=== PATIENT | female | born 1975 | race Caucasian/White ===

== ENCOUNTER 2019-10-16 05:49 | Inpatient (IN) | payer SELFPAY ==
[2019-10-16] VITALS (10 sets, daily range): BP systolic 91–111; BP diastolic 57–80; PULSE 71–118; RESP 12–20; TEMP 36.4–37.1; O2SAT 93–98; BMI 20.5
--- NOTE | 2019-10-16 05:57 | W.ED.GENADLT ---
HPI - General Adult General: Chief complaint: General Medical Stated complaint: BLOOD CLOTS LEFT CALF Time Seen by Provider: 10/16/19 05:54 History of Present Illness: HPI narrative: 44-year-old female with a known history of factor V Leiden deficiency. She is complaining of pain into prominent varicose veins in her left calf. She denies chest pain or shortness of breath. She has failed multiple oral anticoagulants. She also failed Lovenox and is currently on supratherapeutic doses reviewing old heme-onc notes she was on doses as high as 120 mg twice daily she is currently 100 mg twice daily. They have used anti-Xa levels to adjust her Lovenox therapy. She is also been referred to tertiary care center in [employer] [facility] for evaluation. She usually sees Dr. Stout. Patient does smell strongly of alcohol. Onset (ago): day(s) (1) Location: lower extremity (Left calf) Severity: mild Quality: burning Pain Consistency: constant Relieving factors: rest and other (Elevation) Associated symptoms: Deny chest pain, dyspnea, malaise, nausea, rash or vomiting Review of Systems Const: Denies: fever, chills, body aches, change in appetite, fatigue or malaise ENMT: Denies: throat pain, ear pain, nasal discharge or nasal congestion Card: Denies: chest pain, edema, shortness of breath on exertion or shortness of breath when lying down Resp: Denies: shortness of breath, productive cough or non-productive cough GI: Denies: abdominal pain, nausea, vomiting, vomiting blood, coffee grounds in vomit, diarrhea, constipation, bloating, blood in stool or black tarry stool : Denies: flank pain, difficulty urinating, painful urination, urinary frequency or urinary urgency Skin/Breast: Denies: rash or itching PFSH ED PFSH: Statuses (acute, chronic, etc) shown below reflect problem list status as previously entered and may not be historically accurate Social History Smoking and tobacco status: current every day smoker Physical Exam Const: COMMON NORMALS: no apparent distress GENERAL APPEARANCE: cooperative and comfortable ORIENTATION/CONSCIOUSNESS: Yes awake, Yes oriented to person, Yes oriented to place and Yes oriented to time HENMT: COMMON NORMALS: normocephalic, head/scalp atraumatic, hearing grossly normal bilaterally, external ears normal, EAC's normal, TM's normal bilaterally, nasal mucous membranes and turbinates normal, moist oral mucous membranes and oropharynx normal HEAD & SCALP: normocephalic and atraumatic NOSE: nasal mucous membranes and turbinates normal EXTERNAL EAR: Yes external ears normal EXTERNAL AUDITORY CANAL: EAC's normal TYMPANIC MEMBRANE: TM's normal bilaterally Eye: COMMON NORMALS: PERRL, EOMs intact bilaterally, conjunctivae normal and no scleral icterus CONJUNCTIVA: Yes conjunctivae normal PUPIL: Yes PERRL Neck/C-Spine: COMMON NORMALS: full ROM, no lymphadenopathy, supple and no JVD Lymph: LYMPHATIC: no lymphadenopathy noted and no lymphedema noted Resp: COMMON NORMALS: normal respiratory effort, no retractions, no use of accessory muscles and clear to auscultation bilaterally AUSCULTATION: clear to auscultation bilaterally Cardio: COMMON NORMALS: no JVD, regular rate, regular rhythm and no murmurs RATE: regular rate RHYTHM: regular rhythm GI: COMMON NORMALS: soft to palpation and no hepatosplenomegaly AUSCULTATION: Yes normoactive bowel sounds PALPATION: Yes soft, No tender, No guarding and Yes no hepatosplenomegaly Extremity: COMMON NORMALS: normal to inspection, normal capillary refill, no clubbing, cyanosis or edema and no pedal edema OTHER: Left calf tenderness with 2 prominent varicose veins that are mildly warm to the touch there in the posterior medial aspect of the calf there is no significant swelling in the left leg. Neuro: SENSORIUM/ORIENTATION: Yes oriented to person, Yes oriented to place and Yes oriented to time Skin: COMMON NORMALS: no rashes or lesions noted GENERAL SKIN EXAM: no rashes or lesions noted Course ED course: Patient was noted to be mildly hypotensive tachycardic and have slightly decreased O2 sats on arrival she denies chest pain or shortness of breath. Venous duplex lower extremities confirms a superficial thrombophlebitis and shows what appears to be an old nonocclusive DVT extending all the way through the common femoral vein. Because of her vital sign abnormalities I did go ahead and do a CTA of the chest which shows right sided pulmonary emboli that were not present in August 2019. Discussed with Dr. Stout we both agree that patient be heparinized and monitored here in the hospital we already have a heparin anti-Xa level pending which can be used to adjust her Lovenox dose to therapeutic levels. Reviewed findings with the patient. Vital Signs: Vital signs: Vital Signs Temperature 98.8 F 10/16/19 10:38 Pulse Rate 91 10/16/19 10:38 Respiratory Rate 20 H 10/16/19 10:38 Blood Pressure 93/57 10/16/19 10:38 Pulse Oximetry 96 10/16/19 10:38 [facility] - General Adult Lab Data: Labs: Lab Results 10/16/19 10/16/19 10/16/19 Range/Units 06:22 06:22 06:22 WBC 6.3 (4.0-10.0) 10^3/ uL RBC 4.20 (4.1-5.3) 10^6/u L Hgb 13.2 (11.5-15.3) g/dL Hct 38.2 (37.0-47.0) % MCV 91.0 (81-99) fL MCH 31.4 (28.0-34.0) pg MCHC 34.6 (30.0-36.0) g/dL RDW 12.4 (12.1-15.1) % Plt Count 273 (130-400) 10^3/c mm MPV 8.8 (7.4-10.4) fL Neut % (Auto) 54.8 % Lymph % (Auto) 33.8 % [place] % (Auto) 6.2 % Eos % (Auto) 4.5 % Baso % (Auto) 0.5 % Neut # (Auto) 3.5 (1.8-7.7) 10^3/u L Lymph # (Auto) 2.1 (0.8-4.8) 10^3/u L [place] # (Auto) 0.4 (0.2-0.9) 10^3/u L Eos # (Auto) 0.3 (0.0-0.8) 10^3/u L Baso # (Auto) 0.0 (0.0-0.1) 10^3/u L Nucleated RBC % (a uto) 0 % Nucleated RBCs # 0.0 /100WBC PT 12.00 (10.5-13.3) SECO NDS INR 0.86 (0.8-1.2) APTT 20.8 L (23.9-36.7) SECO NDS Sodium 133 L (136-145) mmol/L Potassium 3.4 L (3.5-5.1) mmol/L Chloride 96 L (98-107) mmol/L Carbon Dioxide 21 L (22-29) mmol/L Anion Gap 19.4 H (5-19) BUN 6 (6-20) mg/dL Creatinine 0.5 (0.5-0.9) mg/dL GFR Calculation 133.4 H (90-130) mL/min Glucose 133 H (74-109) mg/dL Calcium 9.6 (8.6-10.0) mg/Dl Magnesium 1.8 (1.7-2.3) mg/dL Total Bilirubin 0.2 (0.15-1.2) mg/dL AST 18 (0-32) U/L ALT 18 (0-33) U/L Alkaline Phosphata se 54 (35-105) IU/L Total Protein 7.6 (6.6-8.7) g/dL Albumin 4.9 (3.5-5.2) g/dL Globulin 2.7 (1.3-4.6) g/dL Ethyl Alcohol (0-10) mg/dL 10/16/19 Range/Units 06:22 WBC (4.0-10.0) 10^3/ uL RBC (4.1-5.3) 10^6/u L Hgb (11.5-15.3) g/dL Hct (37.0-47.0) % MCV (81-99) fL MCH (28.0-34.0) pg MCHC (30.0-36.0) g/dL RDW (12.1-15.1) % Plt Count (130-400) 10^3/c mm MPV (7.4-10.4) fL Neut % (Auto) % Lymph % (Auto) % [place] % (Auto) % Eos % (Auto) % Baso % (Auto) % Neut # (Auto) (1.8-7.7) 10^3/u L Lymph # (Auto) (0.8-4.8) 10^3/u L [place] # (Auto) (0.2-0.9) 10^3/u L Eos # (Auto) (0.0-0.8) 10^3/u L Baso # (Auto) (0.0-0.1) 10^3/u L Nucleated RBC % (a uto) % Nucleated RBCs # /100WBC PT (10.5-13.3) SECO NDS INR (0.8-1.2) APTT (23.9-36.7) SECO NDS Sodium (136-145) mmol/L Potassium (3.5-5.1) mmol/L Chloride (98-107) mmol/L Carbon Dioxide (22-29) mmol/L Anion Gap (5-19) BUN (6-20) mg/dL Creatinine (0.5-0.9) mg/dL GFR Calculation (90-130) mL/min Glucose (74-109) mg/dL Calcium (8.6-10.0) mg/Dl Magnesium (1.7-2.3) mg/dL Total Bilirubin (0.15-1.2) mg/dL AST (0-32) U/L ALT (0-33) U/L Alkaline Phosphata se (35-105) IU/L Total Protein (6.6-8.7) g/dL Albumin (3.5-5.2) g/dL Globulin (1.3-4.6) g/dL Ethyl Alcohol 160 H (0-10) mg/dL Imaging Data^: CT Chest: Radiologist's impression: PROCEDURE INFORMATION: Exam: CT Angiography Chest With Contrast Exam date and time: 10/16/2019 6:50 AM Age: 44 years old Clinical indication: Prior surgery; Surgery type: Gb; Patient HX: Current dvt. History of pe. ; Additional info: DVT, tachycardia TECHNIQUE: Imaging protocol: Computed tomographic angiography of the chest with intravenous contrast. 3D rendering: MIP and/or 3D reconstructed images were created by the technologist. Total DLP: 496.79 mGy-cm Radiation optimization: All CT scans at this facility use at least one of these dose optimization techniques: automated exposure control; mA and/or kV adjustment per patient size (includes targeted exams where dose is matched to clinical indication); or iterative reconstruction. Contrast material: Omnipaque 350; Contrast volume: 64 ml; Contrast route: IV; COMPARISON: CTA Chest-Pulmonary Emb [id number] 08/02/2019 9:52 PM FINDINGS: Pulmonary arteries: Nonocclusive small pulmonary emboli involving the proximal RIGHT lower lobe posterior and lateral basilar segmental arteries (series 2, image 253). Aorta: Unremarkable. No aortic aneurysm. No aortic dissection. Thyroid: The partially imaged bilateral thyroid lobes are unremarkable. Lungs: lateral basilar segment RIGHT lower lobe mild pulmonary parenchymal scarring, stable. RIGHT middle and lower lobe calcified pulmonary parenchymal granulomas. 3 mm noncalcified lingular pulmonary nodule, stable. Pleural space: Unremarkable. No pneumothorax. No pleural effusion. Heart: No evidence of elevated RIGHT cardiac pressures. Gallbladder and bile ducts: The gallbladder is surgically absent, with metallic clips in the gallbladder fossa. Lymph nodes: No enlarged lymph nodes. Bones/joints: No acute abnormality identified. No acute fracture. Soft tissues: Unremarkable. CT/CT angio chest PE protcl [id number] IMPRESSION: 1. Nonocclusive small pulmonary emboli RIGHT lower lobe posterior and lateral basilar segmental arteries. 2. Small noncalcified lingular pulmonary nodule, stable. 3. Prior cholecystectomy. Radiation Dose CTDIVOL = (mGy): DLP = 496.79 (mGy-cm) Dictated By: Lex Fabian MD Discharge Plan Discharge Patient Disposition: Admitted As Inpatient Admit Provider: Alec Kim Clinical Impression: Factor 5 Leiden mutation, heterozygous Pulmonary emboli Qualifiers: Pulmonary embolism type: multiple subsegmental (without acute cor pulmonale) Qualified Code(s): I26.94 - Multiple subsegmental pulmonary emboli without acute cor pulmonale DVT (deep venous thrombosis) Qualifiers: DVT location: lower extremity Affected thrombotic vein of extremity: femoral Chronicity: acute Laterality: right Qualified Code(s): I82.411 - Acute embolism and thrombosis of right femoral vein Condition: Stable Referrals: Rajani Garcia FNP [Family Provider] - Discharge Date/Time: 10/16/19 09:48 Coding Level of Care Code ED Meter Reader Chief for Chg Fwd Exam Problem Focused
--- NOTE | 2019-10-16 06:10 | USCV_ITS ---
Neyda Ivy Age: 44 Gender: F : 1975 Exam Date: 10/16/2019 06:35 Ordering Phys: Kuldeep No DO Technologist: Yesenia Felton [place] [facility] [place]ication: LEFT CALF PAIN HISTORY: Lower extremity pain. Patient has history of DVT. PROCEDURES: Comparison:. 06/08/19. Examined were the left greater saphenous, common femoral, femoral, profunda, popliteal, posterior tibial veins, and peroneal trunk.. FINDINGS: Non-occlusive DVT extending through the common femoral vein, popliteal vein, and peroneal trunk. SVT also noted in segements of the GSV at the area of patient pain. CONCLUSIONS Chronic DVT left CFV through the peroneal trunk and profunda are stable. Dr. Keri Leblanc DO (Electronically Signed) Final Date: 16 October 2019 08:48 S
[2019-10-16 06:28] LABS: Basophils % 0.5 %; Eosinophils # 0.3 10^3/uL (0.0-0.8); Eosinophils % 4.5 %; Hematocrit 38.2 % (37.0-47.0); Hemoglobin 13.2 g/dL (11.5-15.3); Lymphocytes # 2.1 10^3/uL (0.8-4.8); Lymphocytes % 33.8 %; Mean Corpuscular HGB Conc 34.6 g/dL (30.0-36.0); Mean Corpuscular Hemoglobin 31.4 pg (28.0-34.0); Mean Platelet Volume 8.8 fL (7.4-10.4); Monocytes # 0.4 10^3/uL (0.2-0.9); Monocytes % 6.2 %; Neutrophils # 3.5 10^3/uL (1.8-7.7); Neutrophils % 54.8 %; Nucleated Red Blood Cells % 0 %; Platelet Count 273 10^3/cmm (130-400); Red Cell Distribution Width 12.4 % (12.1-15.1); White Blood Count 6.3 10^3/uL (4.0-10.0)
[2019-10-16 06:37] LABS: INR 0.86 (0.8-1.2)
[2019-10-16 06:38] LABS: Partial Thromboplastin Time 20.8 SECONDS (23.9-36.7)
[2019-10-16 06:42] LABS: Alanine Aminotransferase 18 U/L (0-33); Albumin Level 4.9 g/dL (3.5-5.2); Alkaline Phosphatase 54 IU/L (35-105); Anion Gap 19.4 (5-19); Aspartate Amino Transferase 18 U/L (0-32); Blood Urea Nitrogen 6 mg/dL (6-20); Calcium 9.6 mg/Dl (8.6-10.0); Carbon Dioxide 21 mmol/L (22-29); Chloride 96 mmol/L (98-107); Globulin 2.7 g/dL (1.3-4.6); Glomerular Filtration Rate 133.4 mL/min (90-130); Glucose 133 mg/dL (74-109); Potassium 3.4 mmol/L (3.5-5.1); Sodium 133 mmol/L (136-145); Total Bilirubin 0.2 mg/dL (0.15-1.2); Total Protein 7.6 g/dL (6.6-8.7)
--- NOTE | 2019-10-16 06:46 | CTR_ITS ---
PROCEDURE INFORMATION: Exam: CT Angiography Chest With Contrast Exam date and time: 10/16/2019 6:50 AM Age: 44 years old Clinical indication: Prior surgery; Surgery type: Gb; Patient HX: Current dvt. History of pe. ; Additional info: DVT, tachycardia TECHNIQUE: Imaging protocol: Computed tomographic angiography of the chest with intravenous contrast. 3D rendering: MIP and/or 3D reconstructed images were created by the technologist. Total DLP: 496.79 mGy-cm Radiation optimization: All CT scans at this facility use at least one of these dose optimization techniques: automated exposure control; mA and/or kV adjustment per patient size (includes targeted exams where dose is matched to clinical indication); or iterative reconstruction. Contrast material: Omnipaque 350; Contrast volume: 64 ml; Contrast route: IV; COMPARISON: CTA Chest-Pulmonary Emb [id number] 08/02/2019 9:52 PM FINDINGS: Pulmonary arteries: Nonocclusive small pulmonary emboli involving the proximal RIGHT lower lobe posterior and lateral basilar segmental arteries (series 2, image 253). Aorta: Unremarkable. No aortic aneurysm. No aortic dissection. Thyroid: The partially imaged bilateral thyroid lobes are unremarkable. Lungs: lateral basilar segment RIGHT lower lobe mild pulmonary parenchymal scarring, stable. RIGHT middle and lower lobe calcified pulmonary parenchymal granulomas. 3 mm noncalcified lingular pulmonary nodule, stable. Pleural space: Unremarkable. No pneumothorax. No pleural effusion. Heart: No evidence of elevated RIGHT cardiac pressures. Gallbladder and bile ducts: The gallbladder is surgically absent, with metallic clips in the gallbladder fossa. Lymph nodes: No enlarged lymph nodes. Bones/joints: No acute abnormality identified. No acute fracture. Soft tissues: Unremarkable. CT/CT angio chest PE protcl [id number] IMPRESSION: 1. Nonocclusive small pulmonary emboli RIGHT lower lobe posterior and lateral basilar segmental arteries. 2. Small noncalcified lingular pulmonary nodule, stable. 3. Prior cholecystectomy. Radiation Dose CTDIVOL = (mGy): DLP = 496.79 (mGy-cm)
[2019-10-16 06:58] LABS: Alcohol Level 160 mg/dL (0-10)
[2019-10-16] MEDS: iohexol 350 mg/mL 100 mL Btl IV (07:06)
[2019-10-16] MEDS: heparin 5,000 unit/mL INJ 1 mL 5000 UNIT IV (08:05)
[2019-10-16] MEDS: heparin drip 25,000 UNIT/500 ML PREMIX 14.2 UNIT IV (08:07)
--- NOTE | 2019-10-16 08:57 | USCV_ITS ---
Neyda Ivy Age: 44 Gender: F : 1975 Exam Date: 10/16/2019 08:58 Ordering Phys: Kuldeep No DO Technologist: Vijaya Pena [place] [facility] [place]: PE KNOWN DVT BP: / HR: 83 Rhythm: Sinus Technical Quality: Adequate MEASUREMENTS (Male / Female) Normal Values 2D ECHO LV Diastolic Diameter PLAX 3.6 cm 4.2 - 5.9 / 3.9 - 5.3 cm LV Systolic Diameter PLAX 2.4 cm LV Chamber Size 3.2 cm IVS Diastolic Thickness 1.1 cm 0.6 - 1.0 / 0.6 - 0.9 cm IVS Systolic Thickness 1.4 cm LVPW Diastolic Thickness 1.0 cm 0.6 - 1.0 / 0.6 - 0.9 cm LVPW Systolic Thickness 1.5 cm RV Chamber Size 2.1 cm LVOT Diameter 2.0 cm LV Ejection Fraction 2D Teich 64.5 % LV Ejection Fraction MOD 2C 61.2 % LV Ejection Fraction 2C AL 63.9 % LA Diameter 3.0 cm LA Width 2.8 cm LA Height 2.6 cm RA Width 3.0 cm RA Height 3.5 cm Aorta at Sinotubular Diameter 2.6 cm M-MODE LV Diastolic Diameter MM 3.6 cm 4.2 - 5.9 / 3.9 - 5.3 cm LV Systolic Diameter MM 2.4 cm LV Ejection Fraction MM Teich 62.2 % IVS Diastolic Thickness MM 0.8 cm 0.6 - 1.0 / 0.6 - 0.9 cm IVS Systolic Thickness MM 1.1 cm LVPW Diastolic Thickness MM 1.3 cm 0.6 - 1.0 / 0.6 - 0.9 cm LVPW Systolic Thickness MM 1.6 cm RV Diastolic Diameter MM 1.6 cm Aortic Annulus Diameter 3.3 cm LA Ao Ratio MM 0.9 MV E Point Septal Separation 0.3 cm DOPPLER AV Peak Velocity 108.0 cm/s LVOT Peak Velocity 78.0 cm/s AV Area Cont Eq vti 2.5 cm squared AV Area Cont Eq pk 2.3 cm squared MV Area PHT 5.0 cm squared Mitral E to A Ratio 1.2 MV E' Velocity 14.0 cm/s Mitral E to MV E' Ratio 5.1 Mitral E to LV E' Lateral Ratio 5.6 Mitral E to LV E' Septal Ratio 4.8 TR Peak Velocity 128.3 cm/s TR Peak Gradient 6.6 mmHg TR Mean Velocity 94.3 cm/s TR Mean Gradient 4.0 mmHg TR Velocity Time Integral 26.7 cm TV Peak E Velocity 64.0 cm/s Right Atrial Pressure 3.0 mmHg Pulmonary Artery Systolic Pressu 9.6 mmHg PV Peak Velocity 67.0 cm/s RV Acceleration Time 0.2 s RV Ejection Time 0.4 s RV AcT/ET 0.5 FINDINGS Left Ventricle Normal left ventricular size, systolic function and wall thickness, with no regional wall motion abnormalities. Left ventricular ejection fraction is estimated at 68 %. Normal diastolic function. Right Ventricle Normal right ventricular size and systolic function. Right ventricular systolic pressure 9.6 mmHg. Right Atrium Normal right atrial size. Right atrial pressure estimated at 3 mmHg. Left Atrium Normal left atrial size. Mitral Valve Mildly thickened mitral valve. No mitral valve stenosis. Trace mitral valve regurgitation. Aortic Valve Structurally normal trileaflet aortic valve. No aortic valve stenosis. Trace to mild aortic valve regurgitation. Tricuspid Valve Structurally normal tricuspid valve. No tricuspid valve stenosis. Trace tricuspid valve regurgitation. Pulmonic Valve Pulmonic valve not well visualized. Pericardium No pericardial effusion. Aorta Normal-sized aortic root. CONCLUSIONS 1. Normal left ventricular size, systolic function and wall thickness, with no regional wall motion abnormalities. Left ventricular ejection fraction is estimated at 68 %. Normal diastolic function. 2. Normal right ventricular size and systolic function. 3. Right atrial pressure estimated at 3 mmHg. 4. Trace to mild aortic valve regurgitation. 5. No prior similar studies to compare. Maura Adair MD (Electronically Signed) Final Date: 16 October 2019 18:17 S
[2019-10-16 09:51] LABS: Magnesium 1.8 mg/dL (1.7-2.3)
[2019-10-16] MEDS: acetaminophen 325 mg Tablet 650 MG PO (10:58)
--- NOTE | 2019-10-16 14:29 | P.HP_ITS ---
Providers/Chief Complaint Admitting Physician: Alec Kim MD Chief Complaint: BLOOD CLOTS LEFT CALF History of Present Illness Neyda Ivy is a 44 year old female that presented to the emergency department with complaints of some swelling in her left calf, and tenderness. She has a long history of recurrent DVTs. She reports she is currently on Lovenox, 100 mg subcutaneous every 12 hours. For 5 months ago this was d ecreased from 120 mg every 12 hours. She is on supratherapeutic doses secondary to her recalcitrant clotting problem. She denies any shortness of breath, or chest pain. While in the ER she was noted to be tachycardic so a CTA was performed which demonstrated a new pulmonary embolism. Patient denies any fever, cough. She reports she has been compliant with Lovenox. She reports she had alcohol yesterday. ER physician was concerned that she appeared inebriated when she arrived today and alcohol level was significant. Review of Systems General: Reports: 10 or more systems reviewed and unremarkable except in HPI and below Const: Denies: fever Eyes: Denies: change in vision ENMT: Denies: throat pain Card: Reports: swelling of feet/ankles; Denies: chest pain or irregular heart rhythm Resp: Denies: shortness of breath GI: Denies: abdominal pain, nausea, vomiting blood, blood in stool or black tarry stool : Denies: difficulty urinating Musc: Denies: back pain Skin/Breast: Denies: rash Neuro: Denies: headache Psych: Denies: anxiety Endo: Denies: excessive urination Yassine/Lymph: Reports: easy bruising All/Imm: Denies: hives Medications/Allergies Home Medications Medication Instructions Recorded Confirmed Last Taken Type enoxaparin 100 mg SUBCUT BID 10/16/19 10/16/19 10/15/19 History Allergies Allergy/AdvReac Type Severity Reaction Status Date / Time apixaban [From Eliquis] Allergy ALGY-Hives Verified 10/16/19 05:57 gabapentin Allergy ALGY-Hives Verified 10/16/19 05:57 morphine Allergy ALGY-Hives Verified 10/16/19 05:57 PFSH Acute PFSH: Statuses (acute, chronic, etc) shown below reflect problem list status as previously entered and may not be historically accurate Medical History (Updated 10/16/19 @ 14:34 by Alec Kim MD) Asthma (Acute) DVT (deep venous thrombosis) (Acute) Factor 5 Leiden mutation, heterozygous (Acute) Pulmonary emboli (Acute) Tobacco dependency (Acute) Surgical History (Updated 10/16/19 @ 14:33 by Alec Kim MD) H/O neck surgery (Acute) History of back surgery (Acute) History of (Acute) History of cholecystectomy (Acute) History of tubal ligation (Acute) Family History (Updated 10/16/19 @ 14:35 by Alec Kim MD) Mother Cancer Cervical cancer Social History (Updated 10/16/19 @ 14:35 by Alec Kim MD) Smoking and tobacco status: current every day smoker Alcohol intake: current Alcohol intake frequency: 0-2 Drinks per Day Substance/Drug Use: never Female Reporductive History: Date of last menstrual period: 10/01/19 Vitals/I&O/Wt Last Vital Signs Temp 98.8 F 10/16/19 10:38 Pulse 91 10/16/19 10:38 Resp 20 H 10/16/19 10:38 BP 93/57 10/16/19 10:38 Pulse Ox 96 10/16/19 10:38 10/15/19 10/16/19 10/16/19 22:59 06:59 14:59 Intake Total 360 / 360 Balance 360 / 360 Weight last 48 hrs Weight 50.802 kg Physical Exam Narrative: EXAM NARRATIVE: General exam is no apparent distress HEENT: Pupils equally round. Oropharynx clear. Neck is supple no lymphadenopathy or thyromegaly Cardiovascular regular rate and rhythm without murmur no S3 or S4 Lungs clear no wheezing or crackles Abdomen is soft with positive bowel sounds. No obvious organomegaly deferred Extremities no cyanosis or clubbing. Left calf with some edema, superficial erythema Neuro no focal deficits Skin no rash Data : 10/16/19 06:22 10/16/19 06:22 Other data: Venous duplex demonstrated chronic DVT left common femoral vein CTA demonstrated nonocclusive small pulmonary emboli right lower lobe posterior and left basilar segmental arteries A&P Assessment and plan (1) DVT (deep venous thrombosis): Left lower extremity DVT. Probably acute on chronic. Occurred on Lovenox 100 mg twice daily. Plan will be heparin for 72 hours IV, followed by increasing Lovenox dose to 120 mg twice daily with discharge. Discussed briefly with her hand cell tuber. Status: Acute Qualifiers: Affected thrombotic vein of extremity: femoral Chronicity: acute DVT location: lower extremity Laterality: right Qualified Code(s): I82.411 - Acute embolism and thrombosis of right femoral vein Code(s): I82.409 - Acute embolism and thrombosis of unspecified deep veins of unspecified lower extremity (2) Pulmonary emboli: See plan above Status: Acute Qualifiers: Pulmonary embolism type: multiple subsegmental (without acute cor pulmonale) Qualified Code(s): I26.94 - Multiple subsegmental pulmonary emboli without acute cor pulmonale Code(s): I26.99 - Other pulmonary embolism without acute cor pulmonale (3) Factor 5 Leiden mutation, heterozygous: Status: Acute Code(s): D68.51 - Activated protein C resistance (4) Asthma: Albuterol as needed Status: Acute Code(s): J45.909 - Unspecified asthma, uncomplicated (5) Tobacco dependency: Discussed abstinence, counseling given Status: Acute Code(s): F17.200 - Nicotine dependence, unspecified, uncomplicated Additional A&P Information Mild hypokalemia, already supplemented Elevated alcohol level. Discussed this in detail with the patient. This is not ideal considering her anticoagulants. Attestations Medical Necessity Statement*: Will need greater than 2 midnight stay for evalu ation and treatment of pulmonary emboli Coding Level of Care Code Acute Acid Condenser for Chg Fwd Diagnoses DVT (deep venous thrombosis) I82.411 Affected thrombotic vein of extremity: femoral Chronicity: acute DVT location: lower extremity Laterality: right Pulmonary emboli I26.94 Pulmonary embolism type: multiple subsegmental (without acute cor pulmonale) Factor 5 Leiden mutation, heterozygous D68.51 Asthma J45.909 Tobacco dependency F17.200
[2019-10-16 15:17] LABS: Partial Thromboplastin Time 43.8 SECONDS (23.9-36.7)
[2019-10-16 20:50] LABS: Partial Thromboplastin Time 43.8 SECONDS (23.9-36.7)
[2019-10-16] MEDS: heparin 5,000 unit/mL INJ 1 mL IV (21:40)
[2019-10-17] VITALS (8 sets, daily range): BP systolic 91–110; BP diastolic 51–72; PULSE 63–80; RESP 17–19; TEMP 36.4–37.3; O2SAT 90–98; BMI 20.5
[2019-10-17 02:31] LABS: Basophils % 0.3 %; Eosinophils # 0.2 10^3/uL (0.0-0.8); Eosinophils % 4.2 %; Hematocrit 38.4 % (37.0-47.0); Hemoglobin 12.9 g/dL (11.5-15.3); Lymphocytes % 35.6 %; Mean Corpuscular HGB Conc 33.6 g/dL (30.0-36.0); Mean Corpuscular Hemoglobin 31.3 pg (28.0-34.0); Mean Corpuscular Volume 93.2 fL (81-99); Mean Platelet Volume 9.2 fL (7.4-10.4); Monocytes # 0.4 10^3/uL (0.2-0.9); Monocytes % 6.3 %; Neutrophils # 3.1 10^3/uL (1.8-7.7); Neutrophils % 53.4 %; Nucleated Red Blood Cells % 0 %; Platelet Count 264 10^3/cmm (130-400); Red Blood Count 4.12 10^6/uL (4.1-5.3); Red Cell Distribution Width 12.9 % (12.1-15.1); White Blood Count 5.7 10^3/uL (4.0-10.0)
[2019-10-17 02:51] LABS: Alanine Aminotransferase 11 U/L (0-33); Albumin Level 4.4 g/dL (3.5-5.2); Alkaline Phosphatase 42 IU/L (35-105); Anion Gap 16.9 (5-19); Aspartate Amino Transferase 14 U/L (0-32); Blood Urea Nitrogen 9 mg/dL (6-20); Calcium 9.6 mg/Dl (8.6-10.0); Carbon Dioxide 23 mmol/L (22-29); Chloride 102 mmol/L (98-107); Globulin 2.3 g/dL (1.3-4.6); Glomerular Filtration Rate 133.4 mL/min (90-130); Glucose 112 mg/dL (74-109); Potassium 3.9 mmol/L (3.5-5.1); Sodium 138 mmol/L (136-145); Total Bilirubin 0.2 mg/dL (0.15-1.2); Total Protein 6.7 g/dL (6.6-8.7)
[2019-10-17 04:37] LABS: Partial Thromboplastin Time 75.8 SECONDS (23.9-36.7)
[2019-10-17 11:10] LABS: Partial Thromboplastin Time 52.3 SECONDS (23.9-36.7)
--- NOTE | 2019-10-17 11:21 | P.PN_ITS ---
Subjective Subjective: Interval history: Neyda reports she is doing fine. She denies any chest pain, shortness of breath or any other respiratory symptoms. She reports her leg is about the same. Medications: Reviewed: Yes Vitals/I&O/Wt Last Vital Signs Temp 98.4 F 10/17/19 11:05 Pulse 69 10/17/19 11:05 Resp 17 10/17/19 11:05 BP 108/61 10/17/19 11:05 Pulse Ox 94 10/17/19 11:05 10/16/19 10/17/19 10/17/19 22:59 06:59 14:59 Intake Total 535.843 / 895.843 646.4 / 1542.243 Balance 535.843 / 895.843 646.4 / 1542.243 Weight last 48 hrs Weight 50.802 kg Weight 50.802 kg Physical Exam Narrative: EXAM NARRATIVE: General exam is no apparent distress HEENT: Pupils equally round. Oropharynx clear. Neck is supple no lymphadenopathy or thyromegaly Cardiovascular regular rate and rhythm without murmur no S3 or S4 Lungs clear no wheezing or crackles Abdomen is soft with positive bowel sounds. No obvious organomegaly deferred Extremities no cyanosis or clubbing. Left calf with some edema, superficial erythema. This is improved since her admission Neuro no focal deficits Skin no rash Data : 10/17/19 02:25 10/17/19 02:25 A&P Assessment and plan (1) DVT (deep venous thrombosis): Left lower extremity DVT. Probably acute on chronic. Occurred on Lovenox 100 mg twice daily. Plan will be heparin for 72 hours IV, followed by increasing Lovenox dose to 120 mg twice daily with discharge. Discussed briefly with her automobile engine assembler. She will likely discharge Sunday Status: Acute Qualifiers: Affected thrombotic vein of extremity: femoral Chronicity: acute DVT location: lower extremity Laterality: right Qualified Code(s): I82.411 - Acute embolism and thrombosis of right femoral vein Code(s): I82.409 - Acute embolism and thrombosis of unspecified deep veins of unspecified lower extremity (2) Pulmonary emboli: See plan above. Pulmonary embolus seen on CTA Status: Acute Qualifiers: Pulmonary embolism type: multiple subsegmental (without acute cor pulmonale) Qualified Code(s): I26.94 - Multiple subsegmental pulmonary emboli without acute cor pulmonale Code(s): I26.99 - Other pulmonary embolism without acute cor pulmonale (3) Factor 5 Leiden mutation, heterozygous: Status: Acute Code(s): D68.51 - Activated protein C resistance (4) Asthma: Albuterol as needed Status: Acute Code(s): J45.909 - Unspecified asthma, uncomplicated (5) Tobacco dependency: Discussed abstinence, counseling given Status: Acute Code(s): F17.200 - Nicotine dependence, unspecified, uncomplicated Additional A&P Information Mild hypokalemia, already supplemented Elevated alcohol level. Discussed this in detail with the patient. This is not ideal considering her anticoagulants. Attestations Medical Necessity Statement*: Needs continued hospitalization for IV heparin secondary to acute pulmonary emboli Coding Level of Care Code Acute Material Handling Technician for Renetta Burton Diagnoses DVT (deep venous thrombosis) I82.411 Affected thrombotic vein of extremity: femoral Chronicity: acute DVT location: lower extremity Laterality: right Pulmonary emboli I26.94 Pulmonary embolism type: multiple subsegmental (without acute cor pulmonale) Factor 5 Leiden mutation, heterozygous D68.51 Asthma J45.909 Tobacco dependency F17.200
[2019-10-17] MEDS: heparin drip 25,000 UNIT/500 ML PREMIX 18.3 UNIT IV (16:55)
[2019-10-17 19:12] LABS: Partial Thromboplastin Time 35.8 SECONDS (23.9-36.7)
[2019-10-17] MEDS: heparin 5,000 unit/mL INJ 1 mL IV (20:39)
[2019-10-18] VITALS (8 sets, daily range): BP systolic 91–108; BP diastolic 52–65; PULSE 57–76; RESP 16–18; TEMP 36.6–36.9; O2SAT 95–99
[2019-10-18 02:20] LABS: Basophils % 0.3 %; Eosinophils # 0.2 10^3/uL (0.0-0.8); Eosinophils % 3.6 %; Hematocrit 38.4 % (37.0-47.0); Hemoglobin 12.7 g/dL (11.5-15.3); Lymphocytes # 2.4 10^3/uL (0.8-4.8); Lymphocytes % 36.9 %; Mean Corpuscular HGB Conc 33.1 g/dL (30.0-36.0); Mean Corpuscular Hemoglobin 31.1 pg (28.0-34.0); Mean Corpuscular Volume 94.1 fL (81-99); Mean Platelet Volume 9.4 fL (7.4-10.4); Monocytes # 0.5 10^3/uL (0.2-0.9); Monocytes % 7.3 %; Neutrophils # 3.3 10^3/uL (1.8-7.7); Neutrophils % 51.7 %; Nucleated Red Blood Cells % 0 %; Platelet Count 249 10^3/cmm (130-400); Red Blood Count 4.08 10^6/uL (4.1-5.3); White Blood Count 6.4 10^3/uL (4.0-10.0)
[2019-10-18 03:13] LABS: Partial Thromboplastin Time 66.3 SECONDS (23.9-36.7)
[2019-10-18 09:26] LABS: Partial Thromboplastin Time 62.3 SECONDS (23.9-36.7)
--- NOTE | 2019-10-18 10:54 | P.PN_ITS ---
Subjective Subjective: Interval history: Neyda reports she is doing fine. She is wondering when she can go home. She denies any chest pain or shortness of breath. Leg feels better. Medications: Reviewed: Yes Vitals/I&O/Wt Last Vital Signs Temp 98 F 10/18/19 07:46 Pulse 73 10/18/19 07:46 Resp 18 10/18/19 07:46 BP 98/65 10/18/19 07:46 Pulse Ox 98 10/18/19 07:46 10/17/19 10/18/19 10/18/19 22:59 06:59 14:59 Intake Total 240 / 240 594 / 594 Output Total 300 / 300 Balance -60 / -60 594 / 594 Weight last 48 hrs Weight 52.481 kg Weight 50.802 kg Physical Exam Narrative: EXAM NARRATIVE: General exam no apparent distress Cardiovascular regular rate and rhythm without murmur Lungs clear Abdomen is soft with positive bowel sounds Extremities no cyanosis clubbing or edema. No erythema is noted. Data : 10/18/19 02:13 10/17/19 02:25 A&P Assessment and plan (1) DVT (deep venous thrombosis): Left lower extremity DVT. Probably acute on chronic. Occurred on Lovenox 100 mg twice daily. Plan will be heparin for 72 hours IV, followed by increasing Lovenox dose to 120 mg twice daily with discharge. Discussed briefly with her driver operator. She will discharge Sunday. I confirmed that she already has Lovenox 120 mg dose at home. Status: Acute Qualifiers: Affected thrombotic vein of extremity: femoral Chronicity: acute DVT location: lower extremity Laterality: right Qualified Code(s): I82.411 - Acute embolism and thrombosis of right femoral vein Code(s): I82.409 - Acute embolism and thrombosis of unspecified deep veins of unspecified lower extremity (2) Pulmonary emboli: See plan above. Pulmonary embolus seen on CTA Status: Acute Qualifiers: Pulmonary embolism type: multiple subsegmental (without acute cor pulmonale) Qualified Code(s): I26.94 - Multiple subsegmental pulmonary emboli without acute cor pulmonale Code(s): I26.99 - Other pulmonary embolism without acute cor pulmonale (3) Factor 5 Leiden mutation, heterozygous: Status: Acute Code(s): D68.51 - Activated protein C resistance (4) Asthma: Albuterol as needed Status: Acute Code(s): J45.909 - Unspecified asthma, uncomplicated (5) Tobacco dependency: Discussed abstinence, counseling given Status: Acute Code(s): F17.200 - Nicotine dependence, unspecified, uncomplicated Additional A&P Information Mild hypokalemia, already supplemented Elevated alcohol level. Discussed this in detail with the patient. This is not ideal considering her anticoagulants. Attestations Medical Necessity Statement*: Needs continued hospitalization for IV heparin secondary to pulmonary embolus Coding Level of Care Code Acute Diagnostic Cardiac Sonographer for Chg Fwd Diagnoses DVT (deep venous thrombosis) I82.411 Affected thrombotic vein of extremity: femoral Chronicity: acute DVT location: lower extremity Laterality: right Pulmonary emboli I26.94 Pulmonary embolism type: multiple subsegmental (without acute cor pulmonale) Factor 5 Leiden mutation, heterozygous D68.51 Asthma J45.909 Tobacco dependency F17.200
[2019-10-18 14:25] LABS: Partial Thromboplastin Time 55.8 SECONDS (23.9-36.7)
[2019-10-18] MEDS: heparin drip 25,000 UNIT/500 ML PREMIX 20 UNIT IV (19:45)
[2019-10-18 21:36] LABS: Partial Thromboplastin Time 48.9 SECONDS (23.9-36.7)
[2019-10-18] MEDS: heparin 5,000 unit/mL INJ 1 mL IV (22:18)
[2019-10-19] VITALS: BP 95/59; PULSE 69; RESP 18; TEMP 36.7; O2SAT 98
[2019-10-19 03:52] VITALS: BP 83/52; PULSE 77; RESP 16; TEMP 36.8; O2SAT 98
[2019-10-19 04:30] LABS: Partial Thromboplastin Time 65.2 SECONDS (23.9-36.7)
[2019-10-19 06:00] VITALS: BMI 21.0
[2019-10-19 07:33] VITALS: BP 97/63; PULSE 60; RESP 16; TEMP 36.8; O2SAT 98
--- NOTE | 2019-10-19 10:02 | PM.DCS ---
Discharge Providers Date of Admission: 10/16/19 09:56 Date of Discharge: 10/19/19 Attending Provider at Admission: Alec Kim MD Attending Provider at Discharge: Alec Kim MD Diagnoses at Discharge Discharge Diagnosis (1) DVT (deep venous thrombosis): Status: Acute Problem details: Lovenox dose increased to discharge Qualifiers: Affected thrombotic vein of extremity: femoral Chronicity: acute DVT location: lower extremity Laterality: right Qualified Code(s): I82.411 - Acute embolism and thrombosis of right femoral vein (2) Pulmonary emboli: Status: Acute Problem details: See above Qualifiers: Pulmonary embolism type: multiple subsegmental (without acute cor pulmonale) Qualified Code(s): I26.94 - Multiple subsegmental pulmonary emboli without acute cor pulmonale (3) Factor 5 Leiden mutation, heterozygous: Status: Acute Problem details: Failed lower dose of Lovenox at 100 mg twice daily. Dose increased as noted (4) Asthma: Status: Acute (5) Tobacco dependency: Status: Acute Problem details: Cessation discussed Reason for Visit Reason for Visit: Reason For Visit: BLOOD CLOTS LEFT CALF Hospital Course Hospital Course: Neyda presented to the hospital with left lower extremity erythema, edema. She was found to have a superficial thrombophlebitis, chronic left lower extremity DVT. CTA demonstrated concern for new pulmonary embolism. She did not have any chest pain, shortness of breath. She had been taking 100 mg of Lovenox twice daily. She was placed in the hospital on heparin drip, and monitored for 72 hours. She had resolution of her left lower extremity symptoms. She had no pulmonary symptoms. On discharge she was discharged on 120 mg of Lovenox twice daily. She will follow-up with her oncologist in 7 to 10 days. I discussed with her stopping smoking as well as alcohol. Physical Exam Narrative: EXAM NARRATIVE: General exam no apparent distress Cardiovascular regular in rhythm without murmur Lungs clear Abdomen is soft, positive bowel sounds Extremities no cyanosis clubbing or edema Discharge Data Data Completed and Pending: Completed Studies During Hospitalization Category Date Time Status CT angio chest PE protcl [id number] Stat Cat Scan 10/16/19 06:46 Completed CV echo complete* [id number] Urgent Ultrasound 10/16/19 08:57 [place] [id number] Stat Ultrasound 10/16/19 06:10 Completed Pending at discharge Category Date Time Status PTT [Partial Thro mboplastin Time] R outine Lab 10/19/19 10:00 Ordered Labs from last 24 hours 10/19/19 10/18/19 10/18/19 04:07 20:50 14:02 APTT 65.2 H 48.9 H 55.8 H Vitals: Last Vital Signs Temp 98.2 F 10/19/19 07:33 Pulse 60 10/19/19 07:33 Resp 16 10/19/19 07:33 BP 97/63 10/19/19 07:33 Pulse Ox 98 10/19/19 07:33 Discharge Plan Discharge Patient Disposition: Home, Self-Care Condition: Stable Prescriptions: New enoxaparin [Lovenox] 120 mg/0.8 mL syringe 120 mg SUBCUT Q12H Qty: 48 RF: 0 Discontinued enoxaparin 100 mg/mL syringe 100 mg SUBCUT BID RF: 0 Discharge Orders: Discharge Order (Routine); Ordered 10/19/19 Ordered By: Alec Kim Referrals: Rajani Garcia FNP [Family Provider] - Waldemar Stout MD [Hospitalist] - 7-10 days Discharge Diet: Advance as tolerated Discharge Activity: Resume usual activity Activity Restrictions/Additional Instructions: Follow-up with oncology 7 to 10 days. Increase in Lovenox as noted. Return for any concerns. Discharge Attestations Time Spent in Discharge Care*: greater than 30 min Quality Metrics Clinical Quality Measures During this hospital stay, did patient experience: VTE Contraindication to Overlap Therapy: Overlap therapy prescribed VTE Discharge Education: Education about anticoagulant therapy/Care Notes given Deep Vein Thrombosis/Pulmonary Embolism Present on Admission: Yes Contraindication to Pharm VTE Prophylaxis: VTE prophylaxis given Coding Level of Care Code Acute Aircraft Systems Technician for g Fwd Diagnoses DVT (deep venous thrombosis) I82.411 Affected thrombotic vein of extremity: femoral Chronicity: acute DVT location: lower extremity Laterality: right Pulmonary emboli I26.94 Pulmonary embolism type: multiple subsegmental (without acute cor pulmonale) Factor 5 Leiden mutation, heterozygous D68.51 Asthma J45.909 Tobacco dependency F17.200
[2019-10-19 11:23] VITALS: BP 97/63; PULSE 60; RESP 16; RESP 18; TEMP 36.8; O2SAT 98
[2019-10-19 12:01] LABS: Partial Thromboplastin Time 59.7 SECONDS (23.9-36.7)
== END 2019-10-19 12:53 | disposition home or self-care (01) | DRG 299 ==
LOC: ER 09:33 → MEDSURG 09:56
PROVIDERS: Family Medicine; Admitting Provider Internal Medicine; Emergency Provider Family Medicine; Family Provider Nurse Practitioner; Visit Provider Internal Medicine
DX: I82.411 Acute embolism and thrombosis of right femoral vein (principal); I26.94 Multiple subsegmental thrombotic pulmonary emboli without acute cor pulmonale; D68.51 Activated protein C resistance; I82.512 Chronic embolism and thrombosis of left femoral vein; J45.909 Unspecified asthma, uncomplicated; F17.200 Nicotine dependence, unspecified, uncomplicated; E87.6 Hypokalemia; Z79.899 Other long term (current) drug therapy; Z88.8 Allergy status to other drugs, medicaments and biological substances
CPT/HCPCS: 12345; 36415; 71275; 80053; 80307; 83735; 85025; 85610; 85730; 93306; 93971; 96374; 99281; J1644; Q9967

== ENCOUNTER 2020-01-19 22:56 | Emergency (ER) | payer SELFPAY ==
--- NOTE | 2020-01-19 23:01 | USR_ITS ---
PROCEDURE INFORMATION: Exam: US Duplex Right Lower Extremity Veins, Limited Exam date and time: 01/19/2020 11:15 PM Age: 44 years old Clinical indication: Pain; Leg, upper; Right TECHNIQUE: Imaging protocol: Real-time Duplex ultrasound of the Right Lower Extremity with 2-D alamo scale, color Doppler flow and spectral waveform analysis with image documentation. Limited exam was focused on the right lower extremity veins. COMPARISON: No relevant prior studies available. FINDINGS: Right deep veins: Normal blood flow within and/or compressibility of the right common femoral, distal deep femoral, posterior tibial and peroneal veins. Blood flow and augmentation evident in the superior aspect of the right superficial femoral vein. No compressibility of or blood flow within the midportion of the right femoral vein. Blood flow within, but incomplete compressibility of the inferior aspect of the right femoral vein. Incomplete compressibility of the right popliteal vein and decreased blood flow within it. Right superficial veins: Saphenofemoral junction and more inferior greater saphenous vein patent without thrombus. Soft tissues: Unremarkable. US/[place] [id number] IMPRESSION: Thrombus within much of the right femoral vein and the right popliteal vein, possibly chronic in nature.
--- NOTE | 2020-01-19 23:01 | XR_ITS ---
WS: [id number] CHEST XRAY TECHNIQUE: Portable chest. CLINICAL INFORMATION: cough COMPARISON: June 09, 2019 FINDINGS: Heart: Normal cardiac silhouette. Lungs: Lungs are clear. No consolidation or pleural effusion. Calcified granuloma right lower lobe. Bones: Postoperative changes lower cervical spine. XR/XR chest 1V portable [id number] IMPRESSION: No acute chest findings
--- NOTE | 2020-01-19 23:02 | CTR_ITS ---
PROCEDURE INFORMATION: Exam: CT Angiography Chest With Contrast Exam date and time: 01/19/2020 11:25 PM Age: 44 years old Clinical indication: Abnormal findings; Other: Postive dvt ultrasound; Additional info: Dyspnea/hx pes TECHNIQUE: Imaging protocol: Computed tomographic angiography of the chest with intravenous contrast. 3D rendering: MIP and/or 3D reconstructed images were created by the technologist. Total DLP: 416.24 mGy-cm Radiation optimization: All CT scans at this facility use at least one of these dose optimization techniques: automated exposure control; mA and/or kV adjustment per patient size (includes targeted exams where dose is matched to clinical indication); or iterative reconstruction. Contrast material: OMNI 350; Contrast volume: 95 ml; Contrast route: IV; COMPARISON: CT angio chest PE protcl [id number] 10/16/2019 7:20 AM FINDINGS: Pulmonary arteries: No significant change in the small branching embolus involving 2 right lower lobe subsegmental arteries. Still no central or segmental pulmonary embolus. No apparent interval subsegmental embolus considering motion artifacts in the left lower lung. Aorta: Continued atherosclerosis. Still no aortic aneurysm. Only slight enhancement of the upper thoracic aorta, but no suggestion of dissection. Other arteries: Small accessory right renal artery still present. Lungs: Continued calcified granuloma in the right middle and lower lobes and 2-3 mm pleural based densities in the right middle lobe and lingula. Still no consolidation. Pleural space: Unremarkable. No pneumothorax. No pleural effusion. Heart: Still no cardiomegaly or pericardial effusion. Gallbladder and bile ducts: Cholecystectomy again evident. No interval biliary ductal dilatation. Lymph nodes: No interval enlarged nodes. Bones/joints: Old compression fractures again evident. Continued degeneration of several discs. Screw and plate fixation device in the cervical spine still present. No acute fracture. Soft tissues: Unremarkable. CT/CT angio chest PE protcl [id number] IMPRESSION: 1. No acute pulmonary embolus. No significant change in the chronic subsegmental embolus in the right lower lobe (previously communicated to Dr. Tyler). 2. Chronic findings detailed above. Radiation Dose CTDIVOL = (mGy): DLP = 416.24 (mGy-cm)
[2020-01-19 23:03] VITALS: BP 103/73; PULSE 115; RESP 18; TEMP 36.5; O2SAT 98; BMI 20.3
--- NOTE | 2020-01-19 23:04 | ED_ITS ---
HPI - General Adult General: Chief complaint: Extremity Problem,Nontraumatic Stated complaint: r leg pain Time Seen by Provider: 01/19/20 22:58 History of Present Illness: HPI narrative: Ms. Ivy is a nice 44-year-old female who comes in complaining of her right leg. Patient states that she has a history of factor V Leiden disease and pulmonary emboli and DVTs. Patient states that she is certain again that this was is going on. She has failed Coumadin, Eliquis, Xarelto but is able to take Lovenox. Patient denies missing any doses or trauma to the area. Patient states that she has a little bit of a cough to which to her is an indication that she has pulmonary emboli. Associated symptoms: Deny chest pain, confusion, diaphoresis, dyspnea, headache(s), malaise, nausea, rash, palpitations, syncope or vomiting Review of Systems General: Reports: other (negative unless marked) Const: Denies: fever, chills, body aches, fatigue, malaise or diaphoresis Eyes: Denies: change in vision or blurry vision ENMT: Denies: throat pain, painful swallowing, hoarseness, ear pain, ear discharge, Change in hearing or nasal discharge Card: Denies: chest pain, palpitations, irregular heart rhythm, syncope, pre- syncope, shortness of breath on exertion or shortness of breath when lying down Resp: Denies: shortness of breath, productive cough, non-productive cough, wheezing, coughing up blood or chest congestion GI: Denies: abdominal pain, nausea, vomiting, vomiting blood, coffee grounds in vomit, diarrhea, constipation, cramping, blood in stool or black tarry stool : Denies: flank pain, painful urination, urinary frequency, urinary urgency, decreased urine ouput, urinary incontinence or blood in urine Musc: Reports: extremity pain; Denies: neck pain, back pain, extremity swelling, joint pain, joint swelling, joint warmth or joint stiffness Skin/Breast: Denies: rash, skin tenderness or yellow skin Neuro: Denies: headache, numbness in extremities, weakness in extremities, changes in sensation, lack of coordination, difficulty walking, dizziness, vertigo or confusion Endo: Denies: excessive thirst, tired all the time, cold intolerance, excessive sweating, flushing or hot flashes [place]/Lymph: Denies: easy bruising, easy bleeding, petechiae or enlarged lymph nodes All/Imm: Denies: hives, throat swelling, tongue swelling, facial swelling or acute wheezing PFSH ED PFSH: Medical History Asthma DVT (deep venous thrombosis) Lovenox dose increased to discharge Factor 5 Leiden mutation, heterozygous Failed lower dose of Lovenox at 100 mg twice daily. Dose increased as noted Pulmonary emboli See above Tobacco dependency Cessation discussed Surgical History H/O neck surgery History of back surgery History of History of cholecystectomy History of tubal ligation Family History Mother Cancer Cervical cancer Social History Smoking and tobacco status: current every day smoker Alcohol intake: current Alcohol intake frequency: 0-2 Drinks per Day Female Reproductive History: Date of last menstrual period: 10/01/19 Physical Exam Const: COMMON NORMALS: no apparent distress, oriented x3, no limitations, healthy appearing and well nourished EXAM LIMITATIONS: no altered mental status GENERAL APPEARANCE: cooperative, well kempt and well developed ORIENTATION/CONSCIOUSNESS: Yes awake HENMT: COMMON NORMALS: normocephalic, head/scalp atraumatic, hearing grossly normal bilaterally, external ears normal, EAC's normal, external nose normal and moist oral mucous membranes HEAD & SCALP: normal to inspection, normocephalic and atraumatic FACE & SINUS: normal facial exam and face symmetric NOSE: external nose normal and nares normal EXTERNAL EAR: Yes external ears normal EXTERNAL AUDITORY CANAL: EAC's normal MOUTH: oral and palatal mucosa normal and tongue normal Eye: COMMON NORMALS: PERRL, EOMs intact bilaterally, conjunctivae normal and no scleral icterus GENERAL EYE: normal appearance of both eyes and normal light reflex CONJUNCTIVA: Yes conjunctivae normal SCLERA: sclerae normal CORNEA: Yes corneas normal PUPIL: Yes PERRL DIRECT OPHTHALMOSCOPY: Yes normal light reflex Neck/C-Spine: COMMON NORMALS: full ROM, no lymphadenopathy, supple, no meningeal signs and no JVD GENERAL: Yes normal visual inspection and Yes trachea midline CERVICAL SPINE: Yes cervical ROM normal Chest: COMMONS NORMALS: inspection of chest normal and palpation of chest normal Resp: COMMON NORMALS: normal respiratory effort, no retractions, no use of accessory muscles and clear to auscultation bilaterally EFFORT & INSPECTION: Yes able to speak in complete sentences AUSCULTATION: clear to auscultation bilaterally Cardio: COMMON NORMALS: no JVD, regular rate, regular rhythm, S1 normal heart sound, S2 normal heart sound, no gallops, no clicks, no murmurs and no rub JUGULAR VENOUS DISTENTION: no JVD RATE: regular rate RHYTHM: regular rhythm HEART SOUNDS: S1 normal and S2 normal GI: COMMON NORMALS: soft to palpation, non-tender, no hepatosplenomegaly and no masses INSPECTION: Yes normal to inspection PALPATION: Yes soft and Yes no hepatosplenomegaly : COMMON NORMALS: Yes no CVA tenderness BLADDER/KIDNEY EXAM: Yes no CVA tenderness Back/Pelvis: COMMON NORMALS: no CVA tenderness, thoracic and lumbar spine normal to inspection, no thoracic nor lumbar tenderness and thoraco-lumbar ROM normal Extremity: COMMON NORMALS: normal to inspection, full ROM, normal capillary refill, no joint enlargement, no clubbing, cyanosis or edema and no calf tenderness Neuro: COMMON NORMALS: oriented x3, CN's II-XII intact bilaterally, moves all extremities, no focal motor deficits and no sensory deficits noted MENINGEAL SIGNS: Yes no meningeal signs Psych: COMMON NORMALS: mental status grossly normal, thought process normal, cooperative, affect normal, speech normal and activity/motor behavior normal APPEARANCE: Yes well kempt SPEECH: Yes normal speech THOUGHT PROCESS: normal thought process Skin: COMMON NORMALS: no rashes or lesions noted, skin turgor normal, no jaundice, no petechiae and no mottling GENERAL SKIN EXAM: no rashes or lesions noted and turgor normal Course Vital Signs: Vital signs: Vital Signs Temperature 97.7 F 01/19/20 23:03 Pulse Rate 92 01/20/20 00:12 Respiratory Rate 18 01/20/20 00:12 Blood Pressure 116/82 01/19/20 23:37 Pulse Oximetry 95 01/19/20 23:37 MDM - General Adult MDM Narrative: Medical decision making narrative: 0115 -patient was informed that she had a probable new blood clot in her right groin. I discussed the ultrasound findings with the radiologist on-call and she believed that there was thrombus in the right femoral vein and popliteal vein that was likely mostly chronic but cannot rule out a new acute thrombus due to some areas were noncompressible. The CTA was negative for new PE. I had a phone call out to Dr. Gallagher who had not yet as of this time responded back but per review of her previous admission in October she had to be admitted for 3 days of heparin before she was allowed to go home on increased dose of Lovenox. The patient was upset by this and stated she just wanted to go home and she would call Dr. Stout tomorrow. I informed her that based upon my review of her previous admission this would not be a safe option. 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 The patient refused to stay in the ER and allow us to go out to have someone get her electrician wiring and belongings from someone that was waiting for her in the parking lot. She insisted on going herself and as the patient had the capacity to make her own decisions I did not feel I had the standing to hold her against her will. I was suspicious that she was going to try to go out and smoke or leave and think that she would be okay to wait and talk to Dr. Stout tomorrow. I informed her that this blood clot was a risk to her life and if she did try to go out to smoke this would be leaving AGAINST MEDICAL ADVICE but I also informed her that whenever she did outside she was welcome to return. The patient refused to sign an AMA statement as she continued to ask state that she was not going out to smoke only get her belongings from her friend who was waiting for her in the parking lot. She was visualized on camera walking out to the vehicle where she was going to get her belongings but then she was seen to get in the truck and leave. The patient had been warned prior to this about the DVT and the possibility of a developing PE which could threaten her life but she did not seem to care about this information. The patient was warned. Ultimately I feel that she has likely eloped at this time. I will have nursing try to contact her and encouraged her to return to the ER immediately for her own wellbeing. Lab Data: Labs: Lab Results 01/19/20 01/19/20 01/19/20 Range/Units 23:22 23:22 23:22 WBC 6.2 (4.0-10.0) 10^3/ uL RBC 4.19 (4.1-5.3) 10^6/u L Hgb 12.9 (11.5-15.3) g/dL Hct 39.2 (37.0-47.0) % MCV 93.6 (81-99) fL MCH 30.8 (28.0-34.0) pg MCHC 32.9 (30.0-36.0) g/dL RDW 13.2 (12.1-15.1) % Plt Count 312 (130-400) 10^3/c mm MPV 9.3 (7.4-10.4) fL Neut % (Auto) 44.7 % Lymph % (Auto) 45.7 % [place] % (Auto) 6.2 % Eos % (Auto) 2.9 % Baso % (Auto) 0.3 % Neut # (Auto) 2.8 (1.8-7.7) 10^3/u L Lymph # (Auto) 2.8 (0.8-4.8) 10^3/u L [place] # (Auto) 0.4 (0.2-0.9) 10^3/u L Eos # (Auto) 0.2 (0.0-0.8) 10^3/u L Baso # (Auto) 0.0 (0.0-0.1) 10^3/u L Nucleated RBC % (a uto) 0 % Nucleated RBCs # 0.0 /100WBC PT 12.50 (10.5-13.3) SECO NDS INR 0.91 (0.8-1.2) APTT 21.6 L (23.9-36.7) SECO NDS D-Dimer 0.32 (0-0.59) ug/mIFE U Sodium 139 (136-145) mmol/L Potassium 3.3 L (3.5-5.1) mmol/L Chloride 103 (98-107) mmol/L Carbon Dioxide 22 (22-29) mmol/L Anion Gap 17.3 (5-19) BUN 6 (6-20) mg/dL Creatinine 0.7 (0.5-0.9) mg/dL GFR Calculation 90.5 (90-130) mL/min Glucose 108 (65-115) mg/dL Calculated Osmolal ity 284 L (285-295) mOsm/k g Calcium 9.0 (8.5-10.5) mg/dL Total Bilirubin 0.2 (0.15-1.2) mg/dL AST 20 (0-32) U/L ALT 16 (0-33) U/L Alkaline Phosphata se 45 (35-105) IU/L Total Protein 7.4 (6.6-8.7) g/dL Albumin 5.0 (3.5-5.2) g/dL Globulin 2.4 (1.3-4.6) g/dL EKG Data^: EKG 1: Attestation: I personally reviewed and interpreted this EKG as follows: EKG interpretation date: 01/19/20 EKG interpretation time: 23:38 Interpretation: Sinus tachycardia at 106 beats a minute, incomplete right bundle branch block, no acute ST or T wave changes. Computer generated interpretation: Venous Duplex 01/19/20 23:01 IMPRESSION: Thrombus within much of the right femoral vein and the right popliteal vein, possibly chronic in nature. ADDENDUM: 01/20/20 0035 THIS REPORT CONTAINS FINDINGS THAT MAY BE CRITICAL TO PATIENT CARE. The findings were verbally communicated via telephone conference with Johanna Tyler at 12:28 AM CDT on 01/20/2020. The findings were acknowledged and understood. Chest CTA 01/19/20 23:02 IMPRESSION: 1. No acute pulmonary embolus. No significant change in the chronic subsegmental embolus in the right lower lobe (previously communicated to Dr. Tyler). 2. Chronic findings detailed above. Radiation Dose CTDIVOL = (mGy): DLP = 416.24 (mGy-cm) Discharge Plan Discharge Patient Disposition: Left Against Medical Advice Clinical Impression: DVT (deep venous thrombosis) Qualifiers: DVT location: lower extremity Affected thrombotic vein of extremity: femoral Chronicity: unspecified Laterality: right Qualified Code(s): I82.411 - Acute embolism and thrombosis of right femoral vein Condition: Stable Prescriptions: No Action Lovenox 120 mg/0.8 mL syringe 100 mg SUBCUT Q12H RF: 0 Referrals: Rajani Garcia, [facility] REPAIRER [Family Provider] - Coding Level of Care Code ED Home Health Clinician for Chg Fwd Exam Comprehensive
[2020-01-19 23:24] VITALS: PULSE 103
[2020-01-19] MEDS: iohexol 350 mg/mL 100 mL Btl IV (23:26)
[2020-01-19 23:27] LABS: Basophils % 0.3 %; Eosinophils # 0.2 10^3/uL (0.0-0.8); Eosinophils % 2.9 %; Hematocrit 39.2 % (37.0-47.0); Hemoglobin 12.9 g/dL (11.5-15.3); Lymphocytes # 2.8 10^3/uL (0.8-4.8); Lymphocytes % 45.7 %; Mean Corpuscular HGB Conc 32.9 g/dL (30.0-36.0); Mean Corpuscular Hemoglobin 30.8 pg (28.0-34.0); Mean Corpuscular Volume 93.6 fL (81-99); Mean Platelet Volume 9.3 fL (7.4-10.4); Monocytes # 0.4 10^3/uL (0.2-0.9); Monocytes % 6.2 %; Neutrophils # 2.8 10^3/uL (1.8-7.7); Neutrophils % 44.7 %; Nucleated Red Blood Cells % 0 %; Platelet Count 312 10^3/cmm (130-400); Red Blood Count 4.19 10^6/uL (4.1-5.3); Red Cell Distribution Width 13.2 % (12.1-15.1); White Blood Count 6.2 10^3/uL (4.0-10.0)
[2020-01-19 23:37] VITALS: BP 116/82; PULSE 103; RESP 27; O2SAT 95
[2020-01-19 23:40] LABS: Alanine Aminotransferase 16 U/L (0-33); Alkaline Phosphatase 45 IU/L (35-105); Anion Gap 17.3 (5-19); Aspartate Amino Transferase 20 U/L (0-32); Blood Urea Nitrogen 6 mg/dL (6-20); Carbon Dioxide 22 mmol/L (22-29); Chloride 103 mmol/L (98-107); Globulin 2.4 g/dL (1.3-4.6); Glomerular Filtration Rate 90.5 mL/min (90-130); Glucose 108 mg/dL (65-115); Osmolality Calculated 284 mOsm/kg (285-295); Potassium 3.3 mmol/L (3.5-5.1); Sodium 139 mmol/L (136-145); Total Bilirubin 0.2 mg/dL (0.15-1.2); Total Protein 7.4 g/dL (6.6-8.7)
[2020-01-19 23:43] LABS: INR 0.91 (0.8-1.2)
[2020-01-19 23:44] LABS: Partial Thromboplastin Time 21.6 SECONDS (23.9-36.7)
[2020-01-19 23:47] LABS: D Dimer 0.32 ug/mIFEU (0-0.59)
[2020-01-19] MEDS: sodium chloride 0.9% 1,000 ML 999 ML IV (23:49)
[2020-01-20 00:12] VITALS: PULSE 92; RESP 18
[2020-01-20 00:30] VITALS: BP 102/69; PULSE 89; RESP 25; O2SAT 96
[2020-01-20 01:00] VITALS: BP 91/60; PULSE 88; RESP 21; O2SAT 97
--- NOTE | 2020-01-20 01:18 | PC.NURSE ---
Pt became agitated and dr in room with her explaining that she did not need to leave AMA, that she has a condition that could cause her to . Pt appears to be upset about wearing a mask do to her persistent cough. I explained that it was ok for her to take off mask when people are not in the room. Pt said she was going out to her friends car to get her phone sports announcer and she was suspected of going to smoke. Told pt if her friend brought her sports announcer in that staff could go get it for her, but she refused. PT was witnessed on camera getting into a truck in parking lot and truck drove of.
[2020-01-20 01:30] VITALS: BP 99/65
--- NOTE | 2020-01-20 01:48 | PC.NURSE ---
Attempted to call patient per Doctor Jayson and offer patient to come back to ER to be admitted if she changed her mind, patient did not answer and phone stated voicemail not set up.
== END 2020-01-20 01:30 | disposition left against medical advice (07) ==
PROVIDERS: Emergency Provider Emergency Medicine; Family Provider Nurse Practitioner
DX: I82.411 Acute embolism and thrombosis of right femoral vein (principal); Z53.21 Procedure and treatment not carried out due to patient leaving prior to being seen by health care provider; J45.909 Unspecified asthma, uncomplicated; D68.51 Activated protein C resistance; Z86.711 Personal history of pulmonary embolism; F17.210 Nicotine dependence, cigarettes, uncomplicated
CPT/HCPCS: 12345; 36415; 71045; 71275; 80053; 85025; 85378; 85610; 85730; 93971; 96360; 96361; 99283; 99284; J7030; Q9967

== ENCOUNTER 2020-10-06 11:25 | Emergency (ER) | payer SELFPAY ==
[2020-10-06 11:29] VITALS: BP 135/80; PULSE 105; RESP 16; TEMP 36.4; O2SAT 98; BMI 20.7
--- NOTE | 2020-10-06 11:41 | XR_ITS ---
WS: [id number] Right knee, 3 views, 10/06/2020 Clinical Data: pain/fall Comparison: None. Findings: No fractures or dislocations are seen. The joint spaces are normal. The patella is intact. The soft t issues are unremarkable. XR/XR knee RT 3V* [id number] Impression: Negative right knee.
--- NOTE | 2020-10-06 11:41 | W.ED.EXTPRO ---
HPI - Extremity Problem General: Chief complaint: Extremity Injury, Lower Stated complaint: rt knee pain post fall Time Seen by Provider: 10/06/20 11:35 History of Present Illness: HPI Narrative: The patient comes to the ER complaining of 4 days of right knee pain after falling on concrete directly on her right patella. She says she has been putting it off however every time she walks on it her knee swells up and she continues to have pain so she is worried it could be fractured. She also has factor V Leiden and takes Lovenox but is not having any issues with this today. She is able to walk on the knee well Complaint: extremity pain Location: right and knee Severity scale (1-10): 5 Quality: aching and sharp Radiation: none Relieving factors: elevation and rest Exacerbating factors: walking Associated symptoms: Reports no associated symptoms; Deny chest pain or rash Review of Systems General: Reports: 10 or more systems reviewed and unremarkable except in HPI and below Const: Denies: fatigue Eyes: Denies: change in vision, blurry vision or eye redness ENMT: Denies: throat pain, swelling of lips/tongue, ear or mastoid pain or nasal congestion Card: Denies: chest pain, palpitations, irregular heart rhythm, edema, dyspnea on exertion or orthopnea Resp: Denies: dyspnea, productive cough or non-productive cough GI: Denies: abdominal pain, diarrhea or GI cramping : Denies: flank pain, difficulty voiding, urinary frequency or urinary urgency Musc: Denies: neck pain, back pain, extremity pain, joint pain, joint redness, limited range of motion or muscle weakness Skin/Breast: Denies: rash, pruritus, erythema, skin pain or skin tenderness Neuro: Denies: headache(s), numbness in extremities, weakness in extremities, sensory changes, difficulty walking, dizziness, confusion or Slurred speech present Psych: Denies: anxiety or depression Endo: Denies: polyuria All/Imm: Denies: urticaria, throat swelling or tongue swelling [facility] ED PFSH: Medical History (Updated 10/06/20 @ 12:12 by Lauro Juárez MD) Asthma DVT (deep venous thrombosis) Lovenox dose increased to discharge Factor 5 Leiden mutation, heterozygous Failed lower dose of Lovenox at 100 mg twice daily. Dose increased as noted Pulmonary emboli See above Tobacco dependency Cessation discussed Surgical History H/O neck surgery History of back surgery History of History of cholecystectomy History of tubal ligation Family History Mother Cancer Cervical cancer Social History (Updated 10/06/20 @ 11:32 by Olayinka Ko RN) Smoking and tobacco status: current every day smoker cigarettes Packs smoked per day: 0.5 Alcohol intake: current Alcohol intake frequency: few times a month Substance/Drug Use: never Female Reproductive History: Date of last menstrual period: 10/01/19 Physical Exam Const: COMMON NORMALS: no acute distress, average body habitus, patient oriented x3, no limitations, healthy appearing, alert and well nourished GENERAL APPEARANCE: cooperative, comfortable, well kempt and well developed ORIENTATION/CONSCIOUSNESS: Yes awake, Yes oriented to person, Yes oriented to place and Yes oriented to time Neck/C-Spine: COMMON NORMALS: no meningeal signs and no JVD Chest: COMMONS NORMALS: normal inspection of the chest and normal palpation of entire chest wall Resp: COMMON NORMALS: normal respiratory effort, No retractions, No use of accessory muscles, clear to auscultation bilaterally and percussion normal EFFORT & INSPECTION: Yes able to speak in complete sentences AUSCULTATION: clear to auscultation bilaterally PERCUSSION: percussion normal Cardio: COMMON NORMALS: no JVD, regular rate, regular rhythm, S1 normal heart sound present, S2 normal heart sound present and Peripheral pulses 2+ throughout RATE: regular rate RHYTHM: regular rhythm HEART SOUNDS: S1 normal heart sound present and S2 normal heart sound present PERIPHERAL PULSES: Peripheral pulses 2+ throughout GI: COMMON NORMALS: Normal to inspection, nondistended, normoactive bowel sounds present, Soft to palpation, non-tender and no masses INSPECTION: Yes normal to inspection PALPATION: Yes Soft to palpation : COMMON NORMALS: Yes no CVA tenderness BLADDER/KIDNEY EXAM: Yes no CVA tenderness Back/Pelvis: COMMON NORMALS: no CVA tenderness, thoracic and lumbar spine normal to inspection, no thoracic nor lumbar tenderness and thoraco-lumbar ROM normal Extremity: COMMON NORMALS: normal to inspection, full ROM, capillary refill normal, no joint enlargement and no pedal edema NARRATIVE EXTREMITY EXAM: Exam normal except right knee tenderness with active and passive range of motion. There is also bony tenderness to the patella. Major ligaments appear to be intact. No significant knee swelling seen. GENERAL: Yes normal exam except as noted Neuro: COMMON NORMALS: patient oriented x3, CN's II-XII intact bilaterally, moves all extremities, no focal motor deficits, no sensory deficits noted and gait normal SENSORIUM/ORIENTATION: Yes alert, Yes oriented to person, Yes oriented to place and Yes oriented to time MENINGEAL SIGNS: Yes no meningeal signs Psych: COMMON NORMALS: mental status grossly normal, Normal thought process present, cooperative, normal affect and speech normal APPEARANCE: Yes well kempt ATTITUDE: Yes calm SPEECH: Yes normal speech THOUGHT PROCESS: Normal thought process present Skin: COMMON NORMALS: no rashes or lesions noted GENERAL SKIN EXAM: no rashes or lesions noted Course Vital Signs: Vital signs: Vital Signs Temperature 97.5 F L 10/06/20 11:29 Pulse Rate 105 H 10/06/20 11:29 Respiratory Rate 16 10/06/20 11:29 Blood Pressure 135/80 10/06/20 11:29 Pulse Oximetry 98 10/06/20 11:29 MDM - Extremity (Nontraumatic) MDM Narrative: Medical decision making narrative: X-rays were negative for fracture. Recommended getting an MRI in a week from her primary care physician if still in pain. Return to the ER with worsening symptoms. Discharge Plan Discharge Patient Disposition: Home Clinical Impression: Contusion of knee Qualifiers: Encounter type: initial encounter Laterality: right Qualified Code(s): S80.01XA - Contusion of right knee, initial encounter Condition: Stable Prescriptions: No Action prednisone 20 mg tablet 40 mg PO DAILY 5 Days Qty: 10 RF: 0 cyclobenzaprine 10 mg tablet 10 mg PO .HS PRN (Reason: muscle spasm) Qty: 7 RF: 0 Lovenox 120 mg/0.8 mL syringe 100 mg SUBCUT Q12H RF: 0 Discharge Orders: Discharge ED (Routine); Ordered 10/06/20 Ordered By: Lauro Juárez Referrals: Lauro Juárez MD [Emergency Provider] - Discharge Diet: Advance as tolerated Discharge Activity: Increase activity as tolerated Patient Instructions: Knee Pain (ED) Activity Restrictions/Additional Instructions: X-rays are normal. No fracture seen. It is likely a bruised kneecap. Please take Tylenol to help with your pain and return to the ER if symptoms worsen. Follow-up with your primary care physician in a week if it is still painful. Get an MRI of your knee at that time if you are still in pain. X-rays can only see bones it cannot see ligaments. An MRI can see the ligaments and tendons in your knees. If it continues to have pain please get an MRI from your primary care physician. Coding Level of Care Code ED Psychiatric Nursing Assistant for Renetta Burton Exam Comprehensive
[2020-10-06 12:21] VITALS: BP 107/71; PULSE 91; RESP 16; O2SAT 97
== END 2020-10-06 12:21 | disposition home or self-care (01) ==
PROVIDERS: Emergency Provider Family Medicine
DX: S80.01XA Contusion of right knee, initial encounter (principal); F17.210 Nicotine dependence, cigarettes, uncomplicated; W19.XXXA Unspecified fall, initial encounter; D68.51 Activated protein C resistance; Z79.01 Long term (current) use of anticoagulants
CPT/HCPCS: 12345; 73562; 99281; 99282

== ENCOUNTER 2021-07-28 09:15 | Outpatient (CLI) | payer SELFPAY | END 2021-07-28 09:16 | disposition home or self-care (01) | PROVIDERS: Visit Provider Internal Medicine Medical Oncology | DX: I74.8 Embolism and thrombosis of other arteries (principal); D68.51 Activated protein C resistance; M47.9 Spondylosis, unspecified; J45.20 Mild intermittent asthma, uncomplicated; J44.9 Chronic obstructive pulmonary disease, unspecified; K21.9 Gastro-esophageal reflux disease without esophagitis; F51.04 Psychophysiologic insomnia; Z79.899 Other long term (current) drug therapy | CPT/HCPCS: 99214 ==

== ENCOUNTER 2022-04-18 22:34 | Emergency (ER) | payer SELFPAY ==
[2022-04-18 23:09] VITALS: BP 137/87; PULSE 99; RESP 18; TEMP 36.4; O2SAT 98; BMI 22.4
--- NOTE | 2022-04-18 23:19 | ED_ITS ---
HPI - Wound/Laceration General: Chief Complaint: Wound/Laceration Stated Complaint: Cut right toe on rust Metal Time Seen by Provider: 04/18/22 23:19 History of Present Illness: 46-year-old female comes in today with injury to the dorsal right middle toe. Patient reports getting into a truck when she caught the little toe against a vani piece of metal. Patient was concerned due to tetanus not being up-to-date. Review of Systems Musc: Reports: extremity pain (Little toe right foot) Skin/Breast: Reports: new lesions PFSH ED PFSH: Medical History (Updated 04/18/22 @ 23:53 by NEDA Altman) Allergic rhinitis due to allergen Asthma DVT (deep venous thrombosis) Lovenox dose increased to discharge Factor 5 Leiden mutation, heterozygous Failed lower dose of Lovenox at 100 mg twice daily. Dose increased as noted Local reaction to bee sting Pulmonary emboli See above Tobacco dependency Cessation discussed Surgical History H/O neck surgery History of back surgery History of History of cholecystectomy History of tubal ligation Family History Mother Cancer Cervical cancer Social History (Updated 10/06/20 @ 11:32 by Olayinka Ko RN) Smoking and tobacco status: current every day smoker cigarettes Packs smoked per day: 0.5 Alcohol intake: current Alcohol intake frequency: few times a month Female Reproductive History: Date of last menstrual period: 10/01/19 Physical Exam Const: COMMON NORMALS: alert Neck/C-Spine: COMMON NORMALS: full ROM Resp: COMMON NORMALS: normal respiratory effort Cardio: COMMON NORMALS: regular rate RATE: regular rate Extremity: RIGHT LOWER EXTREMITY: Yes foot & digits (6 mm abrasion dorsal right little toe) Right foot and digits: Yes inspection, Yes palpation and Yes ROM Neuro: SENSORIUM/ORIENTATION: Yes alert Skin: TRAUMA: abrasion (Right little toe) Course Vital Signs: Vital signs: Vital Signs Temperature 97.6 F 04/18/22 23:09 Pulse Rate 99 04/18/22 23:09 Respiratory Rate 18 04/18/22 23:09 Blood Pressure 137/87 04/18/22 23:09 Pulse Oximetry 98 07/19/22 23:09 MDM - Wound/Laceration Medical Decision Making 46-year-old female comes in today for injury to the right little toe. On exam patient has a superficial abrasion to the right little toe. Cap refill is intact, normal range of motion. Patient does report tenderness to palpation. Differential diagnosis includes but not limited to abrasion of the toe, fracture, contusion. Patient refused x-ray. Wound was cleaned with saline and dressed with a Band-Aid. Patient was given a dose of tetanus to update immunization status. Reviewed recommendations for treatment and follow-up. Patient reported understanding agreed to plan. Discharge Plan Discharge Patient Disposition: Home Clinical Impression: Need for tetanus booster Abrasion of fifth toe Qualifiers: Encounter type: initial encounter Laterality: right Qualified Code(s): S90.414A - Abrasion, right lesser toe(s), initial encounter Condition: Stable Prescriptions: No Action doxycycline hyclate 100 mg tablet 100 mg PO BID Qty: 14 0RF diphenhydramine HCl 25 mg capsule 25 mg PO .hs PRN (Reason: allergy symptoms) Qty: 30 0RF fluticasone propionate 50 mcg/actuation spray,suspension 2 spray intranasal BID Qty: 16 1RF Rx Instructions: administer into each nostril Lovenox 120 mg/0.8 mL syringe 100 mg SUBCUT Q12H 0RF Discharge Orders: Discharge ED (Routine); Ordered 04/18/22 Ordered By: Dalton Barlow Discharge Diet: Usual diet Discharge Activity: Increase activity as tolerated Patient Instructions: Abrasion (ED) Activity Restrictions/Additional Instructions: Keep wound clean and dry. Apply bacitracin ointment for the wound until it is healed. Follow-up with primary care as needed. Return to ER for worsening concerns or new problems. Coding Level of Care Code ED [employer] Information Clerk for Renetta Burton
[2022-04-18] MEDS: tetanus-dipt-pertussis 0.5 mL SDV IM (23:50)
== END 2022-04-19 00:05 | disposition home or self-care (01) ==
PROVIDERS: Emergency Provider Nurse Practitioner Family
DX: S90.414A Abrasion, right lesser toe(s), initial encounter (principal); Z23 Encounter for immunization; F17.210 Nicotine dependence, cigarettes, uncomplicated; W26.8XXA Contact with other sharp object(s), not elsewhere classified, initial encounter
CPT/HCPCS: 90471; 90715; 99283

== ENCOUNTER 2022-11-17 22:17 | Emergency (ER) | payer SELFPAY ==
--- NOTE | 2022-11-17 22:19 | USR_ITS ---
PROCEDURE INFORMATION: Exam: US Duplex Right Lower Extremity Veins, Limited Exam date and time: 11/17/2022 10:39 PM Age: 47 years old Clinical indication: Pain; Other: Palp lump in calf; Leg, lower; Right; Additional info: Leg pain. Patient had DVT in 2019 and hasn't taken any blood thinners since they stopped the Lovenox injections in 2019. Sudden onset of painful palp lump in calf. TECHNIQUE: Imaging protocol: Real-time duplex ultrasound of the Right extremity with 2-D alamo scale, color Doppler flow and spectral waveform analysis including responses to compression and other maneuvers (when performed) with image documentation. Limited exam was focused on the right lower extremity veins. COMPARISON: No relevant prior studies available. FINDINGS: Evaluated veins include the right common femoral, proximal profunda femoral, proximal/mid/distal superficial femoral, popliteal, posterior tibial, peroneal, and proximal greater saphenous veins. Underlying the area of apparent clinical concern in the mid to distal right calf, there is occluding thrombus in a segment of what is apparently the greater saphenous vein, (a superficial vein). This segment of the vein is dilated and noncompressible, and demonstrates no blood flow. Since this area is apparently painful, please correlate clinically for possible thrombophlebitis. Focal areas of incomplete compression of the proximal superficial femoral vein, and distal superficial femoral/popliteal vein, although good blood flow is still demonstrated. The appearance suggests eccentrically located non-occluding thrombus and/or scarring. From the overall appearance, I suspect that this represents chronic rather than acute thrombus, difficult to be completely certain. Please correlate clinically. No visible clot in the other included veins. The other included veins appear normally compressible. Duplex Doppler evaluation demonstrates flow in the other evaluated veins. US/[place] [id number] IMPRESSION: 1. In the mid to distal right calf, there is occluding thrombus in a segment of what is apparently the greater saphenous vein, (a superficial vein). Since this area is apparently painful, please correlate clinically for possible thrombophlebitis. 2. Appearance suggesting eccentrically located non-occluding thrombus and/or scarring in the proximal superficial femoral vein and distal superficial femoral vein/popliteal vein. I suspect that this represents chronic rather than acute thrombus, difficult to be completely certain. See additional discussion above. 3. No definite evidence of acute right lower extremity deep venous thrombosis. 4. Other details discussed above.
[2022-11-17 22:23] VITALS: BP 138/85; PULSE 96; RESP 16; TEMP 36.7; O2SAT 98
--- NOTE | 2022-11-17 22:38 | ED_ITS ---
HPI - Extremity Problem General: Chief complaint: Extremity Problem,Nontraumatic Stated complaint: right calf blood clot? Time Seen by Provider: 11/17/22 22:34 History of Present Illness: 47-year-old female comes in today with some tenderness of a vessel to the right lower leg. Patient has a longstanding history of pulmonary embolism and DVTs. Patient reports that she had been prashanth xaparin routinely for prevention of DVTs but for the last 2 years had been without due to COVID-19. Patient started having symptoms approximately 2 days ago with worsening symptoms today. Patient reports no chest pain or difficulty breathing. Associated symptoms: Deny chest pain or fever(s) Review of Systems Const: Denies: fever(s) Card: Denies: chest pain Resp: Denies: dyspnea Musc: Reports: extremity pain Skin/Breast: Denies: new lesions PFSH ED PFSH: Medical History (Updated 11/17/22 @ 23:08 by NEDA Altman) Allergic rhinitis due to allergen Asthma DVT (deep venous thrombosis) Lovenox dose increased to discharge Factor 5 Leiden mutation, heterozygous Failed lower dose of Lovenox at 100 mg twice daily. Dose increased as noted Local reaction to bee sting Pulmonary emboli See above Tobacco dependency Cessation discussed Surgical History H/O neck surgery History of back surgery History of History of cholecystectomy History of tubal ligation Family History Mother Cancer Cervical cancer Social History (Updated 10/06/20 @ 11:32 by Olayinka Ko RN) Smoking and tobacco status: current every day smoker cigarettes Packs smoked per day: 0.5 Alcohol intake: current Alcohol intake frequency: few times a month Physical Exam Const: COMMON NORMALS: alert HENMT: COMMON NORMALS: normocephalic HEAD & SCALP: normocephalic MOUTH: Normal oral and palatal mucosa present Neck/C-Spine: COMMON NORMALS: full ROM Resp: COMMON NORMALS: normal respiratory effort and clear to auscultation bilaterally AUSCULTATION: clear to auscultation bilaterally Cardio: COMMON NORMALS: regular rate and regular rhythm RATE: regular rate RHYTHM: regular rhythm GI: COMMON NORMALS: Soft to palpation PALPATION: Yes Soft to palpation Extremity: COMMON NORMALS: full ROM RIGHT LOWER EXTREMITY: Yes lower leg (Redness and ropiness noted to a distal lateral vessel.) Neuro: SENSORIUM/ORIENTATION: Yes alert Skin: COMMON NORMALS: turgor normal GENERAL SKIN EXAM: turgor normal Course Vital Signs: Vital signs: Vital Signs Temperature 98.0 F 11/17/22 22:23 Pulse Rate 96 11/17/22 22:23 Respiratory Rate 16 11/17/22 22:23 Blood Pressure 138/85 11/17/22 22:23 Pulse Oximetry 98 11/17/22 22:23 Oxygen Delivery Me thod 11/17/22 22:23 MDM - Extremity (Nontraumatic) Medical Decision Making 47-year-old female comes in today for concerns of redness and tenderness to the left lower leg. On exam we note an area where there is a ropey vein with some erythema and tenderness. Differential diagnosis includes not limited to DVT, superficial thrombophlebitis, contusion. Ultrasound extremity noted a superficial thrombophlebitis to the area of tenderness, also in the popliteal angle a partial occlusion in the deep vein, and a partial occlusion at the femoral bifurcation. We will go ahead and start patient back on her Lovenox at 1 mg/kg twice a day with follow-up with specialist. Patient reports jurgenan alyse and agreed to plan. Lab Data 11/17/22 23:18 11/17/22: Laboratory Results WBC 7.6 10^3/uL (4.0-10.0) 11/17/22 23: RBC 4.36 10^6/uL (4.1-5.3) 11/17/22:18 Hgb 13.7 g/dL (11.5-15.3) 11/17/22 23:18 Hct 40.8 % (37.0-47.0) 11/17/22:18 MCV 93.6 fl (81-99) 11/17/22: MCH 31.4 pg (28.0-34.0) 11/17/22 23: MCHC 33.6 g/dL (30.0-36.0) 11/17/22 23:18 RDW 13.6 % (12.1-15.1) 11/17/22:18 Plt Count 290 10^3/cmm (130-400) 11/17/22 23:18 MPV 8.7 fL (7.4-10.4) 11/17/22 23:18 Neut % (Auto) 53.7 % 11/17/22 23:18 Lymph % (Auto) 34.9 % 11/17/22 23:18 [place] % (Auto) 6.4 % 11/17/22 23:18 Eos % (Auto) 4.2 % 11/17/22 23:18 Baso % (Auto) 0.7 % 11/17/22 23:18 Neut # (Auto) 4.09 10^3/uL (1.8-7.7) 11/17/22 23:18 Lymph # (Auto) 2.7 10^3/uL (0.8-4.8) 11/17/22 23:18 [place] # (Auto) 0.5 10^3/uL (0.2-0.9) 11/17/22 23:18 Eos # (Auto) 0.3 10^3/uL (0.0-0.8) 11/17/22 23:18 Baso # (Auto) 0.1 10^3/uL (0.0-0.1) 11/17/22 23:18 Nucleated RBC % (auto) 0 % 11/17/22 23:18 Nucleated RBCs # 0.0 /100WBC 11/17/22 23:18 PT 12.10 SECONDS (12.1-14.9) 11/17/22 23:18 INR 0.87 (0.8-1.2) 11/17/22 23:18 APTT 21.5 SECONDS (23.9-36.7) L 11/17/22 23:18 Potassium 3.8 mmol/L (3.5-5.1) 11/17/22 23:18 Carbon Dioxide 24 mmol/L (22-29) 11/17/22 23:18 Anion Gap 17.8 (5-19) 11/17/22 23:18 Creatinine 0.5 mg/dL (0.5-0.9) 11/17/22 23:18 Glucose 90 mg/dL (65-115) 11/17/22 23:18 Calcium 9.7 mg/dL (8.5-10.5) 11/17/22 23:18 Total Bilirubin 0.2 mg/dL (0.15-1.2) 11/17/22 23:18 AST 29 U/L (0-32) 11/17/22 23:18 ALT 25 U/L (0-33) 11/17/22 23:18 Alkaline Phosphatase 58 U/L (35-105) 11/17/22 23:18 Total Protein 8.2 g/dL (6.6-8.7) 11/17/22 23:18 Globulin 2.8 g/dL (1.3-4.6) 11/17/22 23:18 Discharge Plan Discharge Patient Disposition: Home Clinical Impression: DVT (deep venous thrombosis) Qualifiers: DVT location: lower extremity Affected thrombotic vein of extremity: popliteal Chronicity: unspecified Laterality: right Qualified Code(s): I82.431 - Acute embolism and thrombosis of right popliteal vein Condition: Stable Prescriptions: New enoxaparin 60 mg/0.6 mL syringe 60 mg SUBCUT Q12H Qty: 12 1RF hydrocodone-acetaminophen 5-325 mg tablet 1 tab PO Q8H PRN (Reason: pain (scale score 7-10)) Qty: 6 0RF No Action doxycycline hyclate 100 mg tablet 100 mg PO BID Qty: 14 0RF diphenhydramine HCl 25 mg capsule 25 mg PO .hs PRN (Reason: allergy symptoms) Qty: 30 0RF fluticasone propionate 50 mcg/actuation spray,suspension 2 spray intranasal BID Qty: 16 1RF Rx Instructions: administer into each nostril Lovenox 120 mg/0.8 mL syringe 100 mg SUBCUT Q12H Discharge Orders: Discharge ED (Routine); Ordered 11/17/22 Ordered By: Dalton Barlow Referrals: Waldemar Stout MD [Primary Care Provider] - Discharge Diet: Usual diet Discharge Activity: Increase activity as tolerated Patient Instructions: Deep Vein Thrombosis (ED) Activity Restrictions/Additional Instructions: Follow-up with primary care in 5 days for recheck, and adjustment to medications. Return to the emergency room for worsening symptoms such as severe chest pain, shortness of breath, or increasing swelling and redness to the extremity. Coding Level of Care Code ED Process Supervisor for Renetta Burton
[2022-11-17 23:25] LABS: Basophils # 0.1 10^3/uL (0.0-0.1); Basophils % 0.7 %; Eosinophils # 0.3 10^3/uL (0.0-0.8); Eosinophils % 4.2 %; Hematocrit 40.8 % (37.0-47.0); Hemoglobin 13.7 g/dL (11.5-15.3); Lymphocytes # 2.7 10^3/uL (0.8-4.8); Lymphocytes % 34.9 %; Mean Corpuscular HGB Conc 33.6 g/dL (30.0-36.0); Mean Corpuscular Hemoglobin 31.4 pg (28.0-34.0); Mean Corpuscular Volume 93.6 fl (81-99); Mean Platelet Volume 8.7 fL (7.4-10.4); Monocytes # 0.5 10^3/uL (0.2-0.9); Monocytes % 6.4 %; Neutrophils # 4.09 10^3/uL (1.8-7.7); Neutrophils % 53.7 %; Nucleated Red Blood Cells % 0 %; Platelet Count 290 10^3/cmm (130-400); Red Blood Count 4.36 10^6/uL (4.1-5.3); Red Cell Distribution Width 13.6 % (12.1-15.1); White Blood Count 7.6 10^3/uL (4.0-10.0)
[2022-11-17 23:36] LABS: INR 0.87 (0.8-1.2)
[2022-11-17 23:37] LABS: Partial Thromboplastin Time 21.5 SECONDS (23.9-36.7)
[2022-11-17 23:42] LABS: Alanine Aminotransferase 25 U/L (0-33); Albumin Level 5.4 g/dL (3.5-5.2); Alkaline Phosphatase 58 U/L (35-105); Anion Gap 17.8 (5-19); Aspartate Amino Transferase 29 U/L (0-32); Blood Urea Nitrogen 4 mg/dL (6-20); Calcium 9.7 mg/dL (8.5-10.5); Carbon Dioxide 24 mmol/L (22-29); Chloride 94 mmol/L (98-107); Globulin 2.8 g/dL (1.3-4.6); Glomerular Filtration Rate 131.7 mL/min (90-130); Glucose 90 mg/dL (65-115); Osmolality Calculated 270 mOsm/kg (285-295); Potassium 3.8 mmol/L (3.5-5.1); Sodium 132 mmol/L (136-145); Total Bilirubin 0.2 mg/dL (0.15-1.2); Total Protein 8.2 g/dL (6.6-8.7)
[2022-11-17] MEDS: enoxaparin 60 mg/0.6 mL Syringe SUBCUT (23:45)
[2022-11-17] MEDS: HYDROcodone-acetaminophen 5-325 mg Tablet 1 TAB PO (23:45)
[2022-11-17 23:51] VITALS: BP 97/62; PULSE 103; RESP 14; O2SAT 97
== END 2022-11-17 23:58 | disposition home or self-care (01) ==
PROVIDERS: Emergency Provider Nurse Practitioner Family; PCP Internal Medicine Medical Oncology
DX: I82.431 Acute embolism and thrombosis of right popliteal vein (principal); F17.210 Nicotine dependence, cigarettes, uncomplicated; D68.51 Activated protein C resistance
CPT/HCPCS: 80053; 85025; 85610; 85730; 93971; 96372; 99284; J1650

== ENCOUNTER 2022-11-23 23:15 | Emergency (ER) | payer SELFPAY ==
[2022-11-23 23:19] VITALS: BP 150/83; PULSE 101; RESP 16; TEMP 36.6; O2SAT 99; BMI 21.9
[2022-11-23] MEDS: enoxaparin 60 mg/0.6 mL Syringe SUBCUT (23:46)
--- NOTE | 2022-11-23 23:53 | ED_ITS ---
HPI - Extremity Problem General: Chief complaint: Extremity Injury, Lower Stated complaint: right leg pain Time Seen by Provider: 11/23/22 23:29 History of Present Illness: 47-year-old female comes in today with complaints of redness and swelling to the right lower extremity. Patient was diagnosed on the with a partial occlusion DVT of the right lower extremity along with a superficial thrombophlebitis. Patient was prescribed Lovenox due to her allergies to other medications. Patient was to start 60 mg twice a day and then follow-up with Dr. Stout. Patient appears nontoxic. Patient appears in mild pain due to her leg. Associated symptoms: Deny chest pain or fever(s) Review of Systems Const: Denies: fever(s) Card: Denies: chest pain Resp: Denies: dyspnea Musc: Reports: extremity pain and extremity swelling [facility] ED PFSH: Medical History (Updated 11/23/22 @ 23:46 by NEDA Altman) Allergic rhinitis due to allergen Asthma DVT (deep venous thrombosis) Lovenox dose increased to discharge Factor 5 Leiden mutation, heterozygous Failed lower dose of Lovenox at 100 mg twice daily. Dose increased as noted Local reaction to bee sting Pulmonary emboli See above Tobacco dependency Cessation discussed Surgical History H/O neck surgery History of back surgery History of History of cholecystectomy History of tubal ligation Family History Mother Cancer Cervical cancer Social History (Updated 10/06/20 @ 11:32 by Olayinka Ko RN) Smoking and tobacco status: current every day smoker cigarettes Packs smoked per day: 0.5 Alcohol intake: current Alcohol intake frequency: few times a month Female Reproductive History: Date of last menstrual period: 11/23/22 Physical Exam Const: COMMON NORMALS: alert HENMT: COMMON NORMALS: normocephalic HEAD & SCALP: normocephalic MOUTH: Normal oral and palatal mucosa present Neck/C-Spine: COMMON NORMALS: full ROM Resp: COMMON NORMALS: normal respiratory effort and clear to auscultation bilaterally AUSCULTATION: clear to auscultation bilaterally Cardio: COMMON NORMALS: regular rate, regular rhythm, S1 normal heart sound present and S2 normal heart sound present RATE: regular rate RHYTHM: regular rhythm HEART SOUNDS: S1 normal heart sound present and S2 normal heart sound present Extremity: RIGHT LOWER EXTREMITY: Yes lower leg (Mild redness and tenderness. Good pulses distally) Right lower leg: Yes inspection, Yes palpation and Yes neurovascular exam Neuro: SENSORIUM/ORIENTATION: Yes alert Skin: COMMON NORMALS: turgor normal GENERAL SKIN EXAM: turgor normal Course Vital Signs: Vital signs: Vital Signs Temperature 97.9 F 11/23/22 23:19 Pulse Rate 101 H 11/23/22 23:19 Respiratory Rate 16 11/23/22 23:19 Blood Pressure 150/83 11/23/22 23:19 Pulse Oximetry 99 11/23/22 23:19 Oxygen Delivery Me thod 11/23/22 23:19 MDM - Extremity (Nontraumatic) Medical Decision Making 47-year-old female comes in today with a known history of a DVT to her right lower leg. Patient came back today due to inability to get her Lovenox filled. Prescription was written on the . Patient states the cost $700 she cannot afford it. Review of the record noted that patient had a superficial phlebitis to the right lower extremity along with some partial nonocclusive DVTs to the p opliteal area of the leg. Patient denies any chest pain or shortness of breath at this time. Differential diagnosis is DVT, superficial phlebitis, inability to pay for medications. Patient was written a new prescription and recommended to take it to the [facility] pharmacy to have the prescription filled and placed on her ER bill or to discuss 340 B options. Patient was given a dose of Lovenox in the ER tonight. No signs of serious illness was noted at this time. Recommend follow-up with Dr. Stout at the soonest available appointment, case management was requested to assist with this appointment. Discharge Plan Discharge Patient Disposition: Home Clinical Impression: DVT (deep venous thrombosis) Qualifiers: DVT location: lower extremity Chronicity: chronic Laterality: right Condition: Stable Prescriptions: Continued enoxaparin 60 mg/0.6 mL syringe 60 mg SUBCUT Q12H Qty: 12 1RF No Action doxycycline hyclate 100 mg tablet 100 mg PO BID Qty: 14 0RF diphenhydramine HCl 25 mg capsule 25 mg PO .hs PRN (Reason: allergy symptoms) Qty: 30 0RF fluticasone propionate 50 mcg/actuation spray,suspension 2 spray intranasal BID Qty: 16 1RF Rx Instructions: administer into each nostril Lovenox 120 mg/0.8 mL syringe 100 mg SUBCUT Q12H hydrocodone-acetaminophen 5-325 mg tablet 1 tab PO Q8H PRN (Reason: pain (scale score 7-10)) Qty: 6 0RF Discharge Orders: Discharge ED (Routine); Ordered 11/23/22 Ordered By: Dalton Barlow Referrals: Waldemar Stout MD [Primary Care Provider] - Discharge Diet: Usual diet Discharge Activity: Increase activity as tolerated Patient Instructions: Deep Vein Thrombosis (ED) Activity Restrictions/Additional Instructions: Take the prescription to the [facility] pharmacy tomorrow and they can apply the prescription medication to your [facility] ER bill or may have other options such as 340 B plans which are government supported. Case management should contact you regarding your follow-up appointment with Dr. Nadya crisostomo. Coding Level of Care Code ED [employer] for Renetta Burton
[2022-11-23 23:58] VITALS: PULSE 90; RESP 16
--- NOTE | 2022-11-24 11:59 | DCPLANNER ---
Addendum entered by Yaneth Medrano 01/09/23 07:56: Patient had a follow up appointment with oncology - patient did attend appointment Addendum entered by Yaneth Medrano 11/28/22 14:35: Patient has a follow up appointment scheduled for , January 04, 2023 at 3:[address] Stout. Clinic will call patient with appointment information. Original Note: discovery manager had message to schedule a follow up appointment for patient with Dr. Stout. discovery manager called the office of , spoke with Iliana, gave clinic patients information. Patients information will be printed and reviewed. clinic will call patient with appointment information.
== END 2022-11-23 23:53 | disposition home or self-care (01) ==
PROVIDERS: Emergency Provider Nurse Practitioner Family; PCP Internal Medicine Medical Oncology
DX: I82.5Z1 Chronic embolism and thrombosis of unspecified deep veins of right distal lower extremity (principal); F17.210 Nicotine dependence, cigarettes, uncomplicated; Z86.718 Personal history of other venous thrombosis and embolism
CPT/HCPCS: 96372; 99284; J1650

== ENCOUNTER 2022-11-30 23:29 | Emergency (ER) | payer SELFPAY ==
[2022-11-30 23:32] VITALS: BP 135/81; PULSE 89; RESP 20; TEMP 36.8; O2SAT 99; BMI 21.2
[2022-11-30 23:39] VITALS: BP 135/81; PULSE 88; RESP 16; O2SAT 98
--- NOTE | 2022-12-01 00:17 | ED_ITS ---
HPI - Extremity Problem General: Chief complaint: Extremity Injury, Lower Stated complaint: right leg pain Time Seen by Provider: 11/30/22 23:36 History of Present Illness: Patient is in today for concerns of a blood clot in her leg. Initially, patient states that she thinks that she has a blood clot in her leg and she has a history of many blood clots in the past due to factor V Leiden. She also reports a history of a pulmonary embolism. Patient is a poor historian and after extensive questioning this provider understood the patient to be staying that she was diagnosed 2 weeks ago with blood clots in her leg and she is concerned that they are moving. She is in for an ultrasound today. further questioning revealed that the patient received an injection of Lovenox the day she was diagnosed and then was unable to get the medication filled due to financial difficulties. She has been back to ER once since her initial diagnosis and received another injection of Lovenox but has still been unable to get the medication filled. The patient reveals that she has not been on any anticoagulant medication since 2019 when COVID hit. The patient denies chest pain, shortness of breath, pain anywhere other than her right lower medial leg. She states that today she came in because she felt like the leg was more swollen. The gentleman at bedside with her states that he thinks her left leg looks more swollen than her right leg. Associated symptoms: Deny chest pain or fever(s) Review of Systems Const: Denies: fever(s), chills or body aches Card: Denies: chest pain, palpitations or irregular heart rhythm Resp: Denies: dyspnea, productive cough or non-productive cough Musc: Reports: extremity pain [facility] ED PFSH: Medical History Allergic rhinitis due to allergen Asthma DVT (deep venous thrombosis) Lovenox dose increased to discharge Factor 5 Leiden mutation, heterozygous Failed lower dose of Lovenox at 100 mg twice daily. Dose increased as noted Local reaction to bee sting Pulmonary emboli See above Tobacco dependency Cessation discussed Surgical History H/O neck surgery History of back surgery History of History of cholecystectomy History of tubal ligation Family History Mother Cancer Cervical cancer Social History Smoking and tobacco status: current every day smoker cigarettes Packs smoked per day: 0.5 Alcohol intake: current Alcohol intake frequency: few times a month Physical Exam Const: COMMON NORMALS: no acute distress, patient oriented x3 and alert OTHER: Patient is initially very polite and cooperative; however, she became very angered at the thought of not having another ultrasound. The patient was yelling at this provider at the bedside. She does not want the Lovenox, but rather just wants the ultrasound to see where the clots are. She wants a full b carole scan just to make sure they have not traveled beyond her leg Neck/C-Spine: COMMON NORMALS: no JVD Resp: COMMON NORMALS: normal respiratory effort, No use of accessory muscles and clear to auscultation bilaterally AUSCULTATION: clear to auscultation bi laterally Cardio: COMMON NORMALS: no JVD, regular rate, regular rhythm, S1 normal heart sound present, S2 normal heart sound present and No murmurs present (Cardio) RATE: regular rate RHYTHM: regular rhythm HEART SOUNDS: S1 normal heart sound present and S2 normal heart sound present Extremity: NARRATIVE EXTREMITY EXAM: There is mild erythema to the right lower medial calf. The patient is tender to palpation in this area. The swelling is minimal. Actually, the right mid calf measures 13 cm and the left mid calf measures 14 cm. The left calf is not erythematous or tender. Pedal and posterior tibialis pulses are palpable and strong. CSM to the distal foot is within normal limits. Patient does have positive Homans' sign to the right lower extremity. Neuro: COMMON NORMALS: patient oriented x3 SENSORIUM/ORIENTATION: Yes alert Course Vital Signs: Vital signs: Vital Signs Temperature 98.2 F 11/30/22 23:32 Pulse Rate 88 11/30/22 23:39 Respiratory Rate 16 11/30/22 23:39 Blood Pressure 135/81 11/30/22 23:39 Pulse Oximetry 98 11/30/22 23:39 Oxygen Delivery Me thod 11/30/22 23:32 MDM - Extremity (Nontraumatic) Medical Decision Making This is a 47-year-old female with a history of factor V Leiden and numerous deep vein thrombosis and pulmonary embolism in the past. Patient has taken herself off of anticoagulant medication since 2019 when JOE hit. On 17 November she was diagnosed with partially occlusive deep vein thrombosis in her right lower extremity at the femoral bifurcation and the popliteal. She also had a superficial thrombosis of the right lower extremity. She was dosed with Lovenox at that time and sent a prescription. She did not fill the prescription due to financial reasons. She came back on November 23 and at that time she was given another dose of Lovenox, resources for the 403B pharmacy plan here at [facility] and a referral to case management to help facilitate getting her medication and getting her into see Dr. Stout. She reports that none of those avenues worked and she still has not had the medication. She is labile affect oscillates between apologizing for being a bitch to this provider and then yelling at this provider and telling her that she demands an ultrasound of her lower extremity. I discussed this case, at length, with Dr. Davis. He is aware of this patient and agrees that the patient does not need repeat venous duplex tonight. He agrees that the patient needs anticoagulant medication to treat the known DVTs that she has. The patient is showing no symptoms of pulmonary embolism at this time and has no pain other than her right lower leg. The patient's vital signs are stable and she is in no acute distress. I explained the rationale to the patient and she does not agree; however, she then becomes apologetic and is cooperative with plan of care. A referral to case management is put in for urgent to help patient with medication and referral to Dr. Stout for continued monitoring and management. Patient is advised to return to the emergency department for new or worsening symptoms including, but not limited to, development of chest pain, shortness of breath, fever, coughing up blood, pain in her chest or other areas of the body. Patient verbalizes understanding and is discharged home in stable condition. The gentleman at the bedside is very agreeable with plan of care and is trying to redirect patient and remind her that ultimately she needs the treatment rather than just numerous repeat tests. Discharge Plan Discharge Patient Disposition: Home Clinical Impression: Factor 5 Leiden mutation, heterozygous, DVT (deep venous thrombosis) Condition: Stable Prescriptions: New Lovenox 60 mg/0.6 mL syringe 60 mg SUBCUT Q12H Qty: 6 0RF No Action doxycycline hyclate 100 mg tablet 100 mg PO BID Qty: 14 0RF diphenhydramine HCl 25 mg capsule 25 mg PO .hs PRN (Reason: allergy symptoms) Qty: 30 0RF fluticasone propionate 50 mcg/actuation spray,suspension 2 spray intranasal BID Qty: 16 1RF Rx Instructions: administer into each nostril Lovenox 120 mg/0.8 mL syringe 100 mg SUBCUT Q12H enoxaparin 60 mg/0.6 mL syringe 60 mg SUBCUT Q12H Qty: 12 1RF hydrocodone-acetaminophen 5-325 mg tablet 1 tab PO Q8H PRN (Reason: pain (scale score 7-10)) Qty: 6 0RF Discharge Orders: Discharge ED (Routine); Ordered 12/01/22 Ordered By: Mickie Slater Referrals: Waldemar Stout MD [Primary Care Provider] - Discharge Diet: Usual diet Discharge Activity: Increase activity as tolerated Patient Instructions: Deep Vein Thrombosis (ED) Activity Restrictions/Additional Instructions: You were given a dose of Lovenox tonight in the ER. You have a prescription for Lovenox that I would like you to take to the [facility] pharmacy tomorrow morning and discuss options for obtaining the medication at the lowest cost possible. Case management is going to help and try and facilitate an appointment with Dr. Stout. If you have not heard from Dr. Stout by Sunday I would like you to call his office and attempt to make an appointment. The medication is essential to treating your blood clots. I recommend wearing compression socks/hose on your legs during the daytime. Elevate your legs up above the level of your heart to help with swelling and blood return when you are sitting down. Make s ure that you are staying active and not sitting stationary too long at a time. Return to the emergency department for any new or worsening symptoms. Coding Level of Care Code ED Stubber for Renetta Burton
[2022-12-01] MEDS: enoxaparin 60 mg/0.6 mL Syringe SUBCUT (00:21)
[2022-12-01 00:46] VITALS: BP 102/70; PULSE 96; RESP 16; O2SAT 97
--- NOTE | 2022-12-06 10:25 | DCPLANNER ---
Addendum entered by Yaneth Medrano 12/07/22 09:46: Iliana called renal case manager back stating that patient had an appointment scheduled with Dr. Stout and did not attend appointment. wellness spa manager called patient at [phone], to speak with patient about getting established with a primary care physician. wellness spa manager unable to speak with patient at this time, a voicemail was left for patient to return casework specialist call. Original Note: wellness spa manager had message to help patient with medication coverage and a follow up appointment with Dr. Stout. wellness spa manager [facility]. A voicemail was left for Iliana to return casework specialist phone call.
== END 2022-12-01 00:48 | disposition home or self-care (01) ==
PROVIDERS: Emergency Provider Nurse Practitioner Family; PCP Internal Medicine Medical Oncology
DX: I82.401 Acute embolism and thrombosis of unspecified deep veins of right lower extremity (principal); D68.51 Activated protein C resistance; F17.210 Nicotine dependence, cigarettes, uncomplicated
CPT/HCPCS: 96372; 99284; J1650

== ENCOUNTER 2023-03-27 14:02 | Oncology outpatient (recurring) (ONCR) | payer SELFPAY | END 2023-03-30 23:59 | disposition home or self-care (01) | PROVIDERS: PCP Internal Medicine Medical Oncology; Visit Provider Internal Medicine Medical Oncology | DX: D68.51 Activated protein C resistance (principal); Z79.01 Long term (current) use of anticoagulants ==

== ENCOUNTER → 2023-04-12 15:15 | Outpatient (BNVA) | payer SELFPAY | PROVIDERS: PCP Internal Medicine Medical Oncology; Referring Provider Internal Medicine Medical Oncology; Visit Provider Orthopaedic Surgery | DX: M54.9 Dorsalgia, unspecified (principal) | CPT/HCPCS: 72110 ==

== ENCOUNTER → 2023-05-09 11:08 | Outpatient (BNVA) | payer SELFPAY | PROVIDERS: PCP Family Medicine; Visit Provider Family Medicine | DX: I82.409 Acute embolism and thrombosis of unspecified deep veins of unspecified lower extremity (principal) | CPT/HCPCS: 80053; 80061; 84439; 84443 ==

== ENCOUNTER 2023-07-01 21:25 | Emergency (ER) | payer MEDICAID, SELFPAY ==
[2023-07-01 21:29] VITALS: BP 149/102; PULSE 110; RESP 17; TEMP 36.6; O2SAT 99; BMI 22.1
--- NOTE | 2023-07-01 21:34 | W.ED.EXTPRO ---
HPI - Extremity Problem General: Chief complaint: Extremity Problem,Nontraumatic Stated complaint: possible blood clot in left leg Time Seen by Provider: 07/01/23 21:31 History of Present Illness: 47-year-old female comes in today with complaints of discomfort to bilateral feet. Patient also reports some soreness to her left calf. Patient has a history of recurrent DVTs and factor V gene mutation. Patient does admit that she has been off her Lovenox for a dental procedure over the last week. Patient does deny any shortness of breath or chest pain. No significant redness or swelling is noted to the left lower leg. Homans' sign is negative. Patient reports some decreased sensation to bilateral toes. This is chronic for patient but has been worse today. Male significant other states that she had were moving furniture yesterday. Patient does have known intervertebral disc degeneration especially in the L5-S1 and L4 S5 area of her spine. Patient has been suggested to have surgery on her lower back but is awaiting insurance. 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 DVT (deep venous thrombosis) Lovenox dose increased to discharge Factor 5 Leiden mutation, heterozygous Local reaction to bee sting Pulmonary emboli See above Tobacco dependency Cessation discussed Surgical History H/O neck surgery (06/15/16) Cervical laminectomy/discectomy with anterior cervical fusion History of back surgery (11/26/17) L4/L5 hemilaminectomy with discectomy and foraminotomies History of History of cholecystectomy History of tubal ligation Family History (Updated 05/09/23 @ 10:09 by Iona Ruiz LPN) Mother Cancer Cervical cancer Grandmother Cancer Maternal-bone Grandfather Cancer Maternal-lung Grandfather Cancer Paternal-lung Grandmother Cancer Paternal-lung Other Bleeding disorder Clotting disorder Lung disease Denies family history of Diabetes CAD (coronary artery disease) Dementia Hyperlipidemia Psychiatric illness Chronic kidney disease (CKD) Anesthesia complication Hypertension Stroke Social History (Updated 05/09/23 @ 10:10 by Iona Ruiz LPN) Smoking and tobacco status: current every day smoker cigarettes Packs smoked per day: 0.5 Alcohol intake: current Alcohol intake frequency: holidays/special occasions only Substance/Drug Use: never Lives independently: Yes Marital status: Single Number of children: 5 Current occupational status: unemployed Special sergio needs: No Agree to transfusion: Yes Physical Exam Const: COMMON NORMALS: alert HENMT: COMMON NORMALS: normocephalic HEAD & SCALP: normocephalic Neck/C-Spine: COMMON NORMALS: full ROM Resp: COMMON NORMALS: normal respiratory effort Cardio: COMMON NORMALS: regular rate and regular rhythm RATE: regular rate RHYTHM: regular rhythm Extremity: NARRATIVE EXTREMITY EXAM: Lateral feet has endorsed numbness of the toes bilateral feet. Strong pedal pulses noted bilaterally. LEFT LOWER EXTREMITY: Yes lower leg (Tenderness to a large varicosity) Neuro: SENSORIUM/ORIENTATION: Yes alert Skin: COMMON NORMALS: turgor normal GENERAL SKIN EXAM: turgor normal Course Vital Signs: Vital signs: Vital Signs Temperature 97.9 F 07/01/23 21:29 Pulse Rate 110 H 07/01/23 21:29 Respiratory Rate 17 07/01/23 21:29 Blood Pressure 149/102 07/01/23 21:29 Pulse Oximetry 99 07/01/23 21:29 Oxygen Delivery Me thod Room Air 07/01/23 21:29 MDM - Extremity (Nontraumatic) Medical Decision Making Patient comes in today for complaints of bilateral lower feet numbness and neuropathy pain. Patient was also concerned about some tenderness in a varicose vein to the left calf. Patient reports no shortness of breath or chest pain. Patient appears nontoxic. Vital signs are normal. Differential diagnosis includes but not limited to DVT, superficial thrombophlebitis, peripheral neuropathy, malingering, Buerger's disease. Patient has been without her Lovenox which she is supposed to be on all the time. Recommend patient restart her Lovenox at the recommended dose of 100 mg twice a day. Patient reported understanding. Patient was also will be given a trial of Lyrica to see if that helps of her neuropathy pain. Recommend patient follow back up with Dr. Up regarding her low back and the increased discomfort in the neuropathy in her lower extremities. Patient reports understanding agrees to plan. No radiology studies performed this visit Discharge Plan Discharge Patient Disposition: Home Clinical Impression: Factor 5 Leiden mutation, heterozygous, Lumbar radiculopathy, chronic DVT (deep venous thrombosis) Qualifiers: DVT location: lower extremity Affected thrombotic vein of extremity: unspecified vein of extremity Chronicity: chronic Laterality: left Qualified Code(s): I82.502 - Chronic embolism and thrombosis of unspecified deep veins of left lower extremity Neuropathy of foot Qualifiers: Laterality: unspecified laterality Qualified Code(s): G57.90 - Unspecified mononeuropathy of unspecified lower limb Condition: Stable Prescriptions: New pregabalin 100 mg capsule 100 mg PO BID Qty: 20 0RF prednisone 20 mg tablet 20 mg PO DAILY Qty: 10 0RF No Action diphenhydramine HCl 25 mg capsule 25 mg PO .hs PRN (Reason: allergy symptoms) Qty: 30 0RF fluticasone propionate 50 mcg/actuation spray,suspension 2 spray intranasal BID Qty: 16 1RF Rx Instructions: administer into each nostril amoxicillin 500 mg tablet 500 mg PO TID Qty: 15 0RF quetiapine [Seroquel] 25 mg tablet 12.5 mg PO DAILY Qty: 30 0RF enoxaparin [Lovenox] 100 mg/mL syringe 100 mg SUBCUT Q12H 5 Days Qty: 10 0RF Discharge Orders: Discharge ED (Routine); Ordered 07/01/23 Ordered By: Dalton Barlow Referrals: Ramos Cruz MD [Primary Care Provider] - Discharge Diet: Usual diet Discharge Activity: Increase activity as tolerated Patient Instructions: Peripheral Neuropathy (ED) Activity Restrictions/Additional Instructions: Restart your Lovenox as directed and take it 100 mg twice a day for the treatment of calf pain on the left lower leg. If you start having chest pain or shortness of breath return immediately to the emergency room for further evaluation and treatment. For your neuropathy we are going to give you some steroids to help with the inflammation around the spinal column which should help release the nerves in order for improvement of the neuropathy. Use the pregabalin 100 mg twice a day to see if that will help with your neuropathy pain. Follow-up with primary care for further medication treatment. Follow-up with Dr. Up regarding your lumbar radiculopathy increasing your neuropathy. Coding Level of Care Code ED Clinical Admissions Manager for Renetta Burton
[2023-07-01] MEDS: dexamethasone 10 mg/mL INJ IM (22:05)
[2023-07-01] MEDS: pregabalin 50 mg Capsule 150 MG PO (22:05)
[2023-07-01 22:16] VITALS: BP 108/82; PULSE 88; RESP 16; O2SAT 98
== END 2023-07-01 22:18 | disposition home or self-care (01) ==
PROVIDERS: Emergency Provider Nurse Practitioner Family; PCP Family Medicine
DX: I82.502 Chronic embolism and thrombosis of unspecified deep veins of left lower extremity (principal); G57.90 Unspecified mononeuropathy of unspecified lower limb; D68.51 Activated protein C resistance; M54.16 Radiculopathy, lumbar region; F17.210 Nicotine dependence, cigarettes, uncomplicated
CPT/HCPCS: 96372; 99284; J1100

== ENCOUNTER 2023-08-08 19:09 | Emergency (ER) | payer MEDICAID, SELFPAY ==
[2023-08-08 19:22] VITALS: BP 152/89; PULSE 89; RESP 16; TEMP 36.7; O2SAT 98; BMI 22.8
--- NOTE | 2023-08-08 19:26 | PC.NURSE ---
pt states that she saw her PCP today and didn't mention that she woke with this symptoms. pt states that she was told to go home .
--- NOTE | 2023-08-08 19:39 | XRR_ITS ---
PROCEDURE INFORMATION: Exam: XR Chest Exam date and time: 08/08/2023 8:14 PM Age: 48 years old Clinical indication: Other: High blood pressure; Additional info: HTN, parasthesia TECHNIQUE: Imaging protocol: Radiologic exam of the chest. Views: 1 view. COMPARISON: CR XR chest 1V portable [id number] 01/20/2020 12:05 AM FINDINGS: Lungs: Unremarkable. No consolidation. Pleural spaces: Unremarkable. No pleural effusion. No pneumothorax. Heart/Mediastinum: Unremarkable. No cardiomegaly. Bones/joints: Lower cervical fusion. XR/XR chest 1V portable [id number] IMPRESSION: No acute findings.
--- NOTE | 2023-08-08 19:39 | CTR_ITS ---
PROCEDURE INFORMATION: Exam: CT Head Without Contrast Exam date and time: 08/08/2023 8:00 PM Age: 48 years old Clinical indication: Weakness, facial; Additional info: Left facial and left arm numbness, HX of blood clots TECHNIQUE: Imaging protocol: Computed tomography of the head without contrast. Radiation optimization: All CT scans at this facility use at least one of these dose optimization techniques: automated exposure control; mA and/or kV adjustment per patient size (includes targeted exams where dose is matched to clinical indication); or iterative reconstruction. REPORTING DATA: Count of CT and Cardiac NM exams in prior 12 months: This patient has received 0 known CTs and 0 known cardiac nuclear medicine studies in the 12 months prior to the current study. COMPARISON: CT cervical spin wo con* [id number] 08/10/2016 1:26 PM RADIATION DOSE METRICS: Total DLP (mGy-cm): 1073 FINDINGS: Brain: No focal hemorrhage or midline shift is identified. Cerebral ventricles: No ventriculomegaly or evidence of acute hydrocephalus. Paranasal sinuses: The partially assessed sinuses are grossly clear. Mastoid air cells: Visualized mastoid air cells are well aerated. Bones/joints: No displaced skull fracture is noted. Soft tissues: Unremarkable. CT/CT head wo con* [id number] IMPRESSION: No acute intracranial abnormality.
--- NOTE | 2023-08-08 19:45 | W.ED.NEUROSD ---
HPI - Neuro Symptoms/Deficit General: Chief Complaint: Neuro Symptoms/Deficit Stated Complaint: Left Side of Face and Arm Numb Time Seen by Provider: 08/08/23 19:34 History of Present Illness: Patient presents to the ER with complaints of left facial and left upper extremity numbness. Patient states she woke up with this this morning. Patient says when she went to bed she did not have this patient is also having pressure behind her left eye. Patient has factor V Leiden and is not taking any anticoagulation consistently. Patient states in the last week the only anticoagulation she took was 1 shot of Lovenox this morning. Patient does have a history of DVT and PE. 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 DVT (deep venous thrombosis) Lovenox dose increased to discharge Factor 5 Leiden mutation, heterozygous Local reaction to bee sting Pulmonary emboli See above Tobacco dependency Cessation discussed Surgical History H/O neck surgery (06/15/16) Cervical laminectomy/discectomy with anterior cervical fusion History of back surgery (11/26/17) L4/L5 hemilaminectomy with discectomy and foraminotomies History of History of cholecystectomy History of tubal ligation Family History Mother Cancer Cervical cancer Grandmother Cancer Maternal-bone Grandfather Cancer Maternal-lung Grandfather Cancer Paternal-lung Grandmother Cancer Paternal-lung Other Bleeding disorder Clotting disorder Lung disease Denies family history of Diabetes CAD (coronary artery disease) Dementia Hyperlipidemia Psychiatric illness Chronic kidney disease (CKD) Anesthesia complication Hypertension Stroke Social History Smoking and tobacco/nicotine status: current every day tobacco/nicotine user cigarettes Packs smoked per day: 0.5 Alcohol intake: current Alcohol intake frequency: holidays/special occasions only Substance/Drug Use: never Lives independently: Yes Marital status: Single Number of children: 5 Current occupational status: unemployed Special sergio needs: No Agree to transfusion: Yes Female Reproductive History: Date of last menstrual period: 07/03/23 Physical Exam Const: COMMON NORMALS: no acute distress, average body habitus, patient oriented x3, no limitations, healthy appearing, alert and well nourished HENMT: COMMON NORMALS: normocephalic, atraumatic, hearing grossly normal bilaterally, external ears normal, Normal external nose present, moist oral mucous membranes and oropharynx normal HEAD & SCALP: normocephalic and atraumatic NOSE: Normal external nose present EXTERNAL EAR: Yes external ears normal Eye: COMMON NORMALS: Equal, round and reactive pupils present, EOMs intact bilaterally, conjunctivae normal and no scleral icterus CONJUNCTIVA: Yes conjunctivae normal PUPIL: Yes Equal, round and reactive pupils present Neck/C-Spine: COMMON NORMALS: full ROM, no lymphadenopathy, supple, no meningeal signs, no JVD and Thyroid normal THYROID: Thyroid normal Lymph: LYMPHATIC: no lymphadenopathy noted Chest: COMMONS NORMALS: normal inspection of the chest and normal palpation of entire chest wall Resp: COMMON NORMALS: normal respiratory effort, No retractions, No use of accessory muscles and clear to auscultation bilaterally AUSCULTATION: clear to auscultation bilaterally Cardio: COMMON NORMALS: no JVD, regular rate, regular rhythm, S1 normal heart sound present, S2 normal heart sound present, No gallops present (Cardio), No clicks present (Cardio), No murmurs present (Cardio) and No rub (Cardio) RATE: regular rate RHYTHM: regular rhythm HEART SOUNDS: S1 normal heart sound present and S2 normal heart sound present GI: COMMON NORMALS: Normal to inspection, nondistended, normoactive bowel sounds present Neuro: COMMON NORMALS: patient oriented x3 SENSORIUM/ORIENTATION: Yes alert MENINGEAL SIGNS: Yes no meningeal signs OTHER: Decree sensation to the left side of face and left upper extremity otherwise negative neuro exam. Course Vital Signs: Vital signs: Vital Signs Temperature 98.1 F 08/08/23 19:22 Pulse Rate 83 08/08/23 19:54 Respiratory Rate 17 08/08/23 19:54 Blood Pressure 128/84 08/08/23 19:54 Pulse Oximetry 98 08/08/23 19:54 Oxygen Delivery Me thod Room Air 08/08/23 19:54 MDM - Neuro Symptoms/Deficit Medical Decision Making Patient had lab work chest x-ray head CT and EKG all of which was essentially benign. It is thought the patient may have had irritation from her prior neck surgeries causing the paresthesias in her face and upper extremity. However since patient does have factor V Leiden and is noncompliant with her anticoagulation she is at high risk for stroke. This was explained to the patient in detail and she said she will be more consistent with taking her Lovenox. Patient should follow-up with her PCP within 7 days or sooner as needed for further evaluation and treatment and if the symptoms worsen to return to the ER. Differential Diagnosis Unlikely carpal tunnel syndrome, convulsions, delirium, subarachnoid hemorrhage, peripheral neuropathy, cerebrovascular accident, multiple sclerosis or transient cerebral ischemia Medical Records I reviewed the patient's medical records. Lab Data I reviewed the patient's lab results. 08/08/23 19:52 08/08/23 19:52 Radiology Impressions Chest X-Ray 08/08/23 19:39 IMPRESSION: No acute findings. Head CT 08/08/23 19:39 IMPRESSION: No acute intracranial abnormality. Laboratory Results WBC 7.31 10^3/uL (3.29-11.43) 08/08/23 19:52 RBC 4.02 10^6/uL (3.85-5.65) 08/08/23 19:52 Hgb 12.90 g/dL (11.27-16.99) 08/08/23 19:52 Hct 38.5 % (36-47) 08/08/23 19:52 MCV 95.8 fl (85-98) 08/08/23 19:52 MCH 32.1 pg (27-33) 08/08/23 19:52 MCHC 33.5 g/dL (30-55) 08/08/23 19:52 RDW 13.2 % (12.1-15.1) 08/08/23 19:52 Plt Count 287 10^3/cmm (157-399) 08/08/23 19:52 MPV 8.7 fL (7.4-10.4) 08/08/23 19:52 Neut % (Auto) 54.0 % 08/08/23 19:52 Lymph % (Auto) 35.6 % 08/08/23 19:52 [place] % (Auto) 7.5 % 08/08/23 19:52 Eos % (Auto) 2.2 % 08/08/23 19:52 Baso % (Auto) 0.4 % 08/08/23 19:52 Neut # (Auto) 3.95 10^3/uL (1.8-7.7) 08/08/23 19:52 Lymph # (Auto) 2.6 10^3/uL (0.8-4.8) 08/08/23 19:52 [place] # (Auto) 0.6 10^3/uL (0.2-0.9) 08/08/23 19:52 Eos # (Auto) 0.2 10^3/uL (0.0-0.8) 08/08/23 19:52 Baso # (Auto) 0.0 10^3/uL (0.0-0.1) 08/08/23 19:52 Nucleated RBC % (auto) 0 % 08/08/23 19:52 Nucleated RBCs # 0.0 /100WBC 08/08/23 19:52 PT 13.40 SECONDS (12.1-14.9) 08/08/23 19:52 INR 0.99 (0.8-1.2) 08/08/23 19:52 Carbon Dioxide 21 mmol/L (22-29) L 08/08/23 19:52 BUN 7 mg/dL (6-20) 08/08/23 19:52 Creatinine 0.8 mg/dL (0.5-0.9) 08/08/23 19:52 GFR Calculation 76.2 mL/min (90-130) L 08/08/23 19:52 Glucose 85 mg/dL (65-115) 08/08/23 19:52 Calcium 9.2 mg/dL (8.5-10.5) 08/08/23 19:52 Magnesium 1.9 mg/dL (1.7-2.3) 08/08/23 19:52 Total Bilirubin 0.3 mg/dL (0.15-1.2) 08/08/23 19:52 AST 12 U/L (0-32) 08/08/23 19:52 ALT 6 U/L (0-33) 08/08/23 19:52 Alkaline Phosphatase 51 U/L (35-105) 08/08/23 19:52 Total Protein 7.2 g/dL (6.6-8.7) 08/08/23 19:52 Albumin 4.7 g/dL (3.5-5.2) 08/08/23 19:52 Globulin 2.5 g/dL (1.3-4.6) 08/08/23 19:52 TSH 1.71 uIU/mL (0.27-4.20) 08/08/23 19:52 All radiology interpretation(s) finalized by discharge EKG Data EKG 1: I personally reviewed and interpreted this EKG as follows: EKG interpretation date: 08/08/23 EKG interpretation time: 19:50 Prior EKG tracings: not available for review Interpretation: EKG showed ventricular rate 81 beats minute, [place] interval 175, QRS duration 74, QTc of 390, sinus rhythm, Discharge Plan Discharge Patient Disposition: Home Clinical Impression: Paresthesia, Factor V Leiden, Non-compliance Condition: Stable Prescriptions: No Action diphenhydramine HCl 25 mg capsule 25 mg PO .hs PRN (Reason: allergy symptoms) Qty: 30 0RF fluticasone propionate 50 mcg/actuation spray,suspension 2 spray intranasal BID Qty: 16 1RF Rx Instructions: administer into each nostril quetiapine [Seroquel] 25 mg tablet 12.5 mg PO DAILY Qty: 30 0RF enoxaparin [Lovenox] 100 mg/mL syringe 100 mg SUBCUT Q12H 5 Days Qty: 10 0RF Discharge Orders: Discharge ED (Routine); Ordered 08/08/23 Ordered By: Jonathan Cee Referrals: Ramos Cruz MD [Primary Care Provider] - 7-10 days Patient Instructions: Paresthesia (ED) Activity Restrictions/Additional Instructions: Please take all your medicine as directed especially your anticoagulation, Lovenox as this will help you prevent blood clots and strokes. Please follow-up with your family practice physician within the next 7 to 10 days for further evaluation and treatment as needed. If your symptoms worsen please return to the ER for further evaluation. Coding Level of Care Code ED Production Control Specialist for Renetta Burton
--- NOTE | 2023-08-08 19:50 | ECG_ITS ---
[facility] Test Date: 2023-08-08 Pat Name: Neyda Ivy Department: Room: Gender: Female Accounts Receivable Executive: : 1975 Requested By: Jonathan Cee Order Number: [id number] Jeffrey MD: Judith Pérez M.D. Measurements Intervals [place] Rate: 81 P: 66 [place]: 175 QRS: 32 QRSD: 74 T: 39 QT: 352 QTc: 410 Interpretive Statements SINUS RHYTHM LOW QRS VOLTAGE IN PRECORDIAL LEADS [QRS DEFLECTION < 1.0 mV IN CHEST LEADS] ANTEROSEPTAL MYOCARDIAL INFARCTION , OF INDETERMINATE AGE [40+ ms Q WAVE IN V1-V4] Compared to ECG 08/02/2019 20:37:31 Low QRS voltage now present Myocardial infarct finding now present Sinus tachycardia no longer present T-wave abnormality no longer present Electronically Signed On 08-09-2023 0:45:26 KNOT CUTTER by Judith Pérez M.D. [id number]
[2023-08-08 19:54] VITALS: BP 128/84; PULSE 83; RESP 17; O2SAT 98; O2SAT 99
[2023-08-08 20:08] LABS: Basophils % 0.4 %; Eosinophils # 0.2 10^3/uL (0.0-0.8); Eosinophils % 2.2 %; Hematocrit 38.5 % (36-47); Lymphocytes # 2.6 10^3/uL (0.8-4.8); Lymphocytes % 35.6 %; Mean Corpuscular HGB Conc 33.5 g/dL (30-55); Mean Corpuscular Hemoglobin 32.1 pg (27-33); Mean Corpuscular Volume 95.8 fl (85-98); Mean Platelet Volume 8.7 fL (7.4-10.4); Monocytes # 0.6 10^3/uL (0.2-0.9); Monocytes % 7.5 %; Neutrophils # 3.95 10^3/uL (1.8-7.7); Nucleated Red Blood Cells % 0 %; Platelet Count 287 10^3/cmm (157-399); Red Blood Count 4.02 10^6/uL (3.85-5.65); Red Cell Distribution Width 13.2 % (12.1-15.1); White Blood Count 7.31 10^3/uL (3.29-11.43)
[2023-08-08 20:29] LABS: INR 0.99 (0.8-1.2)
[2023-08-08 20:35] LABS: Alanine Aminotransferase 6 U/L (0-33); Albumin Level 4.7 g/dL (3.5-5.2); Alkaline Phosphatase 51 U/L (35-105); Aspartate Amino Transferase 12 U/L (0-32); Blood Urea Nitrogen 7 mg/dL (6-20); Calcium 9.2 mg/dL (8.5-10.5); Carbon Dioxide 21 mmol/L (22-29); Globulin 2.5 g/dL (1.3-4.6); Glomerular Filtration Rate 76.2 mL/min (90-130); Glucose 85 mg/dL (65-115); Magnesium 1.9 mg/dL (1.7-2.3); Thyroid Stimulating Hormone 1.71 uIU/mL (0.27-4.20); Total Bilirubin 0.3 mg/dL (0.15-1.2); Total Protein 7.2 g/dL (6.6-8.7)
[2023-08-08 21:07] VITALS: BP 117/77; PULSE 80; RESP 14; O2SAT 95
[2023-08-08 21:11] VITALS: BP 117/77; PULSE 80; RESP 14; TEMP 36.7; O2SAT 95
[2023-08-08 21:53] LABS: Anion Gap 18.3 (5-19); Chloride 100 mmol/L (98-107); Osmolality Calculated 277 mOsm/kg (285-295); Potassium 4.3 mmol/L (3.5-5.1); Sodium 135 mmol/L (136-145)
== END 2023-08-08 21:11 | disposition home or self-care (01) ==
PROVIDERS: Emergency Provider Emergency Medicine; PCP Family Medicine
DX: R20.2 Paresthesia of skin (principal); D68.51 Activated protein C resistance; Z91.148 Patient's other noncompliance with medication regimen for other reason; F17.210 Nicotine dependence, cigarettes, uncomplicated
CPT/HCPCS: 70450; 71045; 80053; 83735; 84443; 85025; 85610; 93005; 99285

== ENCOUNTER → 2024-07-08 15:46 | Outpatient (BNVA) | payer MEDICAID, SELFPAY | PROVIDERS: PCP Family Medicine; Visit Provider Orthopaedic Surgery | DX: M54.50 Low back pain, unspecified (principal) | CPT/HCPCS: 72110 ==

== ENCOUNTER 2024-07-20 21:58 | Emergency (ER) | payer MEDICAID, SELFPAY ==
--- NOTE | 2024-07-20 21:59 | ECG_ITS ---
[facility] Test Date: 2024-07-20 Pat Name: Neyda Ivy Department: Room: Gender: Female Senior Lead Project Manager: : 1975 Requested By: Yanci Bautista Order Number: [id number] Jeffrey MD: TAMMY BYERS Measurements Intervals [place] Rate: 103 P: 74 [place]: 163 QRS: 63 QRSD: 80 T: 23 QT: 330 QTc: 432 Interpretive Statements SINUS TACHYCARDIA LOW QRS VOLTAGE IN PRECORDIAL LEADS [QRS DEFLECTION < 1.0 mV IN CHEST LEADS] ANTEROSEPTAL MYOCARDIAL INFARCTION , OF INDETERMINATE AGE [40+ ms Q WAVE IN V1-V4] Compared to ECG 08/08/2023 19:50:35 Sinus rhythm no longer present Myocardial infarct finding still present Electronically Signed On 07-22-2024 21:01:52 CDT by TAMMY BYERS [id number]
[2024-07-20 22:04] VITALS: BP 125/70; PULSE 100; RESP 18; TEMP 36.6; O2SAT 97
--- NOTE | 2024-07-20 22:10 | XRR_ITS ---
PROCEDURE INFORMATION: Exam: XR Chest Exam date and time: 07/20/2024 10:40 PM Age: 48 years old Clinical indication: Chest pressure; Patient HX: C/O chest pain TECHNIQUE: Imaging protocol: Radiologic exam of the chest. Views: 1 view. COMPARISON: CR (CHEST, ) 08/08/2023 8:14 PM FINDINGS: Lungs: Punctate calcified granuloma in the right lung, otherwise clear, symmetrically inflated lungs. Pleural spaces: No pleural effusion. No pneumothorax. Heart/Mediastinum: Cardiac silhouette is normal in size for technique. Bones/joints: Cervical fusion hardware is partly visualized. XR/XR chest 1V portable [id number] IMPRESSION: No acute cardiopulmonary abnormality.
--- NOTE | 2024-07-20 22:43 | CTR_ITS ---
PROCEDURE INFORMATION: Exam: CTA Chest With Contrast Exam date and time: 07/20/2024 11:16 PM Age: 48 years old Clinical indication: Sternal or substernal pain; Patient HX: C/O substernal chest pain worse why laying supine. History of pe. TECHNIQUE: Imaging protocol: Computed tomographic angiography of the chest with contrast. Exam focused on the arteries. 3D rendering (Not supervised by radiologist): MIP and/or 3D reconstructed images were created by the technologist. Radiation optimization: All CT scans at this facility use at least one of these dose optimization techniques: automated exposure control; mA and/or kV adjustment per patient size (includes targeted exams where dose is matched to clinical indication); or iterative reconstruction. Contrast material: OMNI 350; Contrast volume: 54 ml; Contrast route: INTRAVENOUS (IV); COMPARISON: CT angio chest PE protcl [id number] 01/20/2020 12:00 AM RADIATION DOSE METRICS: Total DLP (mGy-cm): 192.46 FINDINGS: Pulmonary arteries: Normal. No pulmonary emboli. Aorta: There is insufficient contrast in the aortic lumen to exclude acute dissection or penetrating ulcer. Normal caliber thoracic aorta. The Thyroid: Homogeneous thyroid. Lungs: Diffuse bronchial wall thickening with mild bronchial luminal narrowing. Scattered calcified granulomata. No airspace disease. Pleural spaces: Unremarkable. No pneumothorax. No pleural effusion. Heart: Unremarkable. No cardiomegaly. No pericardial effusion. Lymph nodes: Unremarkable. No enlarged lymph nodes. Bones/joints: Unremarkable. No acute fracture. Soft tissues: Unremarkable. CT/CT angio chest PE protcl [id number] IMPRESSION: 1. No findings of acute pulmonary embolism. 2. Changes of bronchitis are noted. No airspace disease.
--- NOTE | 2024-07-20 22:44 | ED_ITS ---
HPI - Chest Pain 2 General: Chief Complaint: Chest Pain Stated Complaint: CP Time Seen by Provider: 07/20/24 22:42 History of Present Illness: Patient comes in today with chest discomfort x 5 days. Patient has a history of DVT and PE. Patient reports pain seems to be worse when she lays down at night. Patient also reports some burning type sensation. 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 Related Data Previous Rx's Medication Instructions Recorded enoxaparin 100 mg/mL subcutaneous 100 mg SUBCUT Q12H #180 mL 06/26/24 syringe (Lovenox) escitalopram oxalate 10 mg tablet 10 mg PO DAILY #30 tabs 06/26/24 (Lexapro) meloxicam 15 mg tablet 15 mg PO DAILY #60 tabs 07/11/24 fluticasone propionate 50 2 spray intranasal BID #16 grams 07/17/24 mcg/actuation nasal spray,suspension cephalexin 500 mg capsule 500 mg PO Q12H #14 caps 07/21/24 prednisone 20 mg tablet 20 mg PO DAILY 7 days #7 tabs 07/21/24 Allergies Allergy/AdvReac Type Severity Reaction Status Date / Time apixaban [From Eliquis] Allergy ALGY-Hives Verified 07/20/24 22:08 gabapentin Allergy ALGY-Hives Verified 07/20/24 22:08 morphine Allergy ALGY-Hives Verified 07/20/24 22:08 trazodone AdvReac Intermediate ADR-Halluci Verified 07/20/24 22:08 nating Review of Systems 2 General: Reports: 10 or more systems reviewed and unremarkable except in HPI and below PFSH ED 2 PFSH: Medical History Moderate major depression 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 Local reaction to bee sting Allergic rhinitis due to allergen Asthma Tobacco dependency Cessation discussed DVT (deep venous thrombosis) Lovenox dose increased to discharge Factor 5 Leiden mutation, heterozygous Pulmonary emboli See above Surgical History H/O neck surgery (06/15/16) Cervical laminectomy/discectomy with anterior cervical fusion History of back surgery (11/26/17) L4/L5 hemilaminectomy with discectomy and foraminotomies History of cholecystectomy History of History of tubal ligation Family History Mother Cancer Cervical cancer Grandmother Cancer Maternal-bone Grandfather Cancer Maternal-lung Grandfather Cancer Paternal-lung Grandmother Cancer Paternal-lung Other Bleeding disorder Clotting disorder Lung disease Denies family history of Diabetes CAD (coronary artery disease) Dementia Hyperlipidemia Psychiatric illness Chronic kidney disease (CKD) Anesthesia complication Hypertension Stroke Social History (Updated 07/08/24 @ 15:53 by Dalton Campos LPN) Smoking and tobacco/nicotine status: former use of tobacco/nicotine Alcohol intake: current Alcohol intake frequency: holidays/special occasions only Substance/Drug Use: never Lives independently: Yes Marital status: Single Number of children: 5 Current occupational status: unemployed Special sergio needs: No Agree to transfusion: Yes Physical Exam 2 Const: COMMON NORMALS: alert HENMT: COMMON NORMALS: normocephalic HEAD & SCALP: normocephalic Neck/C-Spine: COMMON NORMALS: full ROM Chest: COMMONS NORMALS: normal palpation of entire chest wall Resp: COMMON NORMALS: normal respiratory effort and clear to auscultation bilaterally AUSCULTATION: clear to auscultation bilaterally Cardio: COMMON NORMALS: regular rate and regular rhythm RATE: regular rate RHYTHM: regular rhythm GI: COMMON NORMALS: Soft to palpation PALPATION: Yes Soft to palpation Back/Pelvis: COMMON NORMALS: thoracic and lumbar spine normal to inspection Extremity: COMMON NORMALS: full ROM Neuro: SENSORIUM/ORIENTATION: Yes alert Skin: COMMON NORMALS: turgor normal GENERAL SKIN EXAM: turgor normal Course 2 Vital Signs: Vital signs: Vital Signs Temperature 97.9 F 07/20/24 22:04 Pulse Rate 87 07/21/24 00:02 Respiratory Rate 16 07/21/24 00:02 Blood Pressure 117/80 07/21/24 00:02 Pulse Oximetry 94 07/21/24 00:02 Oxygen Delivery Me thod Room Air 07/21/24 00:02 MDM - Chest Pain Medical Decision Making Patient comes in today with some complaints of midsternal chest discomfort x 5 days. Patient was concerned that she may have developed a PE. Patient does have a history of pulmonary emboli and recurrent DVTs. Patient appears nontoxic. Patient is alert and oriented. Skin is warm and dry. Vital signs are normal. Differential diagnosis includes PE, pneumonia, bronchitis, GERD, hiatal hernia. CT of the chest noted no PE and only signs of bronchitis. CBC CMP and troponin were unremarkable. Will treat patient for bronchitis with cephalexin and prednisone. Patient reported understanding agreed to plan. Lab Data 07/20/24 23:37 07/20/24 23:37 Radiology Impressions Chest X-Ray 07/20/24 22:10 IMPRESSION: No acute cardiopulmonary abnormality. Chest CTA 07/20/24 22:43 IMPRESSION: 1. No findings of acute pulmonary embolism. 2. Changes of bronchitis are noted. No airspace disease. Laboratory Results WBC 4.75 10^3/uL (3.29-11.43) 07/20/24 23:37 RBC 3.65 10^6/uL (3.85-5.65) L 07/20/24 23:37 Hgb 11.80 g/dL (11.27-16.99) 07/20/24 23:37 Hct 36.0 % (36-47) 07/20/24 23:37 MCV 98.6 fl (85-98) H 07/20/24 23:37 MCH 32.3 pg (27-33) 07/20/24 23:37 MCHC 32.8 g/dL (30-55) 07/20/24 23:37 RDW 13.4 % (12.1-15.1) 07/20/24 23:37 Plt Count 291 10^3/cmm (157-399) 07/20/24 23:37 MPV 9.0 fL (7.4-10.4) 07/20/24 23:37 Neut % (Auto) 41.8 % 07/20/24 23:37 Lymph % (Auto) 45.7 % 07/20/24 23:37 [place] % (Auto) 6.9 % 07/20/24 23:37 Eos % (Auto) 4.8 % 07/20/24 23:37 Baso % (Auto) 0.6 % 07/20/24 23:37 Neut # (Auto) 1.98 10^3/uL (1.8-7.7) 07/20/24 23:37 Lymph # (Auto) 2.2 10^3/uL (0.8-4.8) 07/20/24 23:37 [place] # (Auto) 0.3 10^3/uL (0.2-0.9) 07/20/24 23:37 Eos # (Auto) 0.2 10^3/uL (0.0-0.8) 07/20/24 23:37 Baso # (Auto) 0.0 10^3/uL (0.0-0.1) 07/20/24 23:37 Nucleated RBC % (auto) 0 % 07/20/24 23:37 Nucleated RBCs # 0.0 /100WBC 07/20/24 23:37 Sodium 132 mmol/L (136-145) L 07/20/24 23:37 Potassium 3.4 mmol/L (3.5-5.1) L 07/20/24 23:37 Chloride 100 mmol/L (98-107) 07/20/24 23:37 Carbon Dioxide 20 mmol/L (22-29) L 07/20/24 23:37 Anion Gap 15.4 (5-19) 07/20/24 23:37 BUN 5 mg/dL (6-20) L 07/20/24 23:37 Creatinine 0.6 mg/dL (0.5-0.9) 07/20/24 23:37 GFR Calculation 106.3 mL/min (90-130) 07/20/24 23:37 Glucose 108 mg/dL (65-115) 07/20/24 23:37 Calculated Osmolality 272 mOsm/kg (285-295) L 07/20/24 23:37 Calcium 8.4 mg/dL (8.5-10.5) L 07/20/24 23:37 Total Bilirubin 0.2 mg/dL (0.15-1.2) 07/20/24 23:37 AST 29 U/L (0-32) 07/20/24 23:37 ALT 29 U/L (0-33) 07/20/24 23:37 Alkaline Phosphatase 90 U/L (35-105) 07/20/24 23:37 Troponin T Baseline < 6 ng/L (0-10) 07/20/24 23:37 NT-Pro-B Natriuret Pep 98 pg/mL (0-125) 07/20/24 23:37 Total Protein 6.9 g/dL (6.6-8.7) 07/20/24 23:37 Albumin 4.5 g/dL (3.5-5.2) 07/20/24 23:37 Globulin 2.4 g/dL (1.3-4.6) 07/20/24 23:37 Lipase 47 U/L (13-60) 07/20/24 23:37 Urine Color Yellow (Yellow) 07/20/24 23:00 Urine Appearance Clear (CLEAR) 07/20/24 23:00 Urine pH 6.0 (5-7) 07/20/24 23:00 Ur Specific [place] 1.003 (1.005-1.030) L 07/20/24 23:00 Urine Protein Negative (Negative) 07/20/24 23:00 Urine Glucose (UA) Negative (Normal) 07/20/24 23:00 Urine Ketones Negative (Negative) 07/20/24 23:00 Urine Blood Negative (Negative) 07/20/24 23:00 Urine Nitrate Negative (Negative) 07/20/24 23:00 Urine Bilirubin Negative (Negative) 07/20/24 23:00 Urine Urobilinogen 0.2 mg/dL (Negative) 07/20/24 23:00 Ur Leukocyte Esterase Negative (Negative) 07/20/24 23:00 Urine RBC 0-2 /hpf (0-2) 07/20/24 23:00 Urine WBC 0-5 /hpf (0-5) 07/20/24 23:00 Ur Squamous Epith Cells 0-5 /hpf (0-5) 07/20/24 23:00 Amorphous Sediment Not Reportable 07/20/24 23:00 Urine Bacteria None seen /hpf (NONE) 07/20/24 23:00 Hyaline Casts 0-4 /lpf H 07/20/24 23:00 All radiology interpretation(s) finalized by discharge Discharge Plan Discharge Patient Disposition: Home Clinical Impression: Bronchitis Condition: Stable Prescriptions: New prednisone 20 mg tablet 20 mg PO DAILY 7 Days Qty: 7 0RF Continued cephalexin 500 mg capsule 500 mg PO Q12H Qty: 14 0RF No Action enoxaparin [Lovenox] 100 mg/mL syringe 100 mg SUBCUT Q12H Qty: 180 3RF escitalopram oxalate [Lexapro] 10 mg tablet 10 mg PO DAILY Qty: 30 1RF meloxicam 15 mg tablet 15 mg PO DAILY Qty: 60 1RF fluticasone propionate 50 mcg/actuation spray,suspension 2 spray intranasal BID Qty: 16 1RF Rx Instructions: administer into each nostril Discharge Orders: Discharge ED (Routine); Ordered 07/21/24 Ordered By: Dalton Barlow Referrals: Ramos Cruz MD [Primary Care Provider] - Discharge Diet: Usual diet Discharge Activity: Increase activity as tolerated Patient Instructions: Acute Bronchitis (ED) Activity Restrictions/Additional Instructions: Take medications as directed. 3 plenty of water and fluids with medications. Follow-up with primary care for further instruction. Coding Level of Care Code ED Switch Foreman for Renetta Burton
[2024-07-20 22:58] VITALS: BP 108/68; PULSE 86; RESP 16; O2SAT 97
[2024-07-20 23:18] LABS: Bilirubin Urine Negative (Negative); Blood Urine Negative (Negative); Glucose Urine UA Negative (Normal); Ketones Urine Negative (Negative); Leukocyte Esterase Urine Negative (Negative); Nitrate Urine Negative (Negative); Protein Urine Negative (Negative); Specific Gravity, Urine 1.003 (1.005-1.030); Urine Appearance Clear (CLEAR); Urine Color Yellow (Yellow); Urobilinogen Urine 0.2 mg/dL (Negative)
[2024-07-20] MEDS: iohexol 350 mg/mL 500 mL Btl (per mL) IV (23:22)
[2024-07-20 23:28] LABS: Add Urine Microscopic? YES; Bacteria Urine None Seen /hpf; Hyaline Casts Urine 0-4 /lpf; RBC Urine 0-2 /hpf (0-2); Squamous Epithelial Cell Urine 0-5 /hpf (0-5); WBC Urine 0-5 /hpf (0-5)
[2024-07-20 23:45] LABS: Basophils % 0.6 %; Eosinophils # 0.2 10^3/uL (0.0-0.8); Eosinophils % 4.8 %; Lymphocytes # 2.2 10^3/uL (0.8-4.8); Lymphocytes % 45.7 %; Mean Corpuscular HGB Conc 32.8 g/dL (30-55); Mean Corpuscular Hemoglobin 32.3 pg (27-33); Mean Corpuscular Volume 98.6 fl (85-98); Monocytes # 0.3 10^3/uL (0.2-0.9); Monocytes % 6.9 %; Neutrophils # 1.98 10^3/uL (1.8-7.7); Neutrophils % 41.8 %; Nucleated Red Blood Cells % 0 %; Platelet Count 291 10^3/cmm (157-399); Red Blood Count 3.65 10^6/uL (3.85-5.65); Red Cell Distribution Width 13.4 % (12.1-15.1); White Blood Count 4.75 10^3/uL (3.29-11.43)
[2024-07-20 23:54] VITALS: RESP 16; O2SAT 96
[2024-07-20] MEDS: fentaNYL 50 mcg/mL INJ 2mL 25 MCG IVP (23:54)
[2024-07-20] MEDS: lidocaine 2% viscous 15 ML, aluminum-mag hydrox-simethicon 30 ML, sucralfate oral liq 1 GM PO (23:54)
[2024-07-21 00:02] VITALS: BP 117/80; PULSE 87; RESP 16; O2SAT 94
[2024-07-21 00:16] LABS: Alanine Aminotransferase 29 U/L (0-33); Albumin Level 4.5 g/dL (3.5-5.2); Alkaline Phosphatase 90 U/L (35-105); Aspartate Amino Transferase 29 U/L (0-32); Blood Urea Nitrogen 5 mg/dL (6-20); Calcium 8.4 mg/dL (8.5-10.5); Carbon Dioxide 20 mmol/L (22-29); Chloride 100 mmol/L (98-107); Creatinine Clr Calc Pharmacy 94.9521; Globulin 2.4 g/dL (1.3-4.6); Glomerular Filtration Rate 106.3 mL/min (90-130); Glucose 108 mg/dL (65-115); Lipase 47 U/L (13-60); NT Pro B Type Natriuretic Pept 98 pg/mL (0-125); Osmolality Calculated 272 mOsm/kg (285-295); Sodium 132 mmol/L (136-145); Total Bilirubin 0.2 mg/dL (0.15-1.2); Total Protein 6.9 g/dL (6.6-8.7)
[2024-07-21 00:25] LABS: Anion Gap 15.4 (5-19); Potassium 3.4 mmol/L (3.5-5.1)
[2024-07-21 00:35] LABS: Troponin(5th) Baseline < 6 ng/L (0-10)
[2024-07-21 01:04] VITALS: BP 114/72; PULSE 87; RESP 16; O2SAT 96
== END 2024-07-21 01:13 | disposition home or self-care (01) ==
PROVIDERS: Emergency Provider Nurse Practitioner Family; PCP Family Medicine
DX: J40 Bronchitis, not specified as acute or chronic (principal); Z86.711 Personal history of pulmonary embolism; Z86.718 Personal history of other venous thrombosis and embolism
CPT/HCPCS: 36415; 71045; 71275; 80053; 81001; 83690; 83880; 84484; 85025; 93005; 96374; 99285; J3010

== ENCOUNTER 2024-07-24 11:54 | Oncology outpatient (recurring) (ONCR) | payer MEDICAID, SELFPAY ==
[2024-07-24 12:21] LABS: Basophils % 0.4 %; Eosinophils % 0.6 %; Hematocrit 33.4 % (36-47); Lymphocytes # 0.8 10^3/uL (0.8-4.8); Lymphocytes % 16.6 %; Mean Corpuscular HGB Conc 33.5 g/dL (30-55); Mean Corpuscular Hemoglobin 32.6 pg (27-33); Mean Corpuscular Volume 97.1 fl (85-98); Mean Platelet Volume 9.2 fL (7.4-10.4); Monocytes # 0.1 10^3/uL (0.2-0.9); Monocytes % 2.1 %; Neutrophils # 3.85 10^3/uL (1.8-7.7); Neutrophils % 79.9 %; Nucleated Red Blood Cells % 0 %; Platelet Count 295 10^3/cmm (157-399); Red Blood Count 3.44 10^6/uL (3.85-5.65); Red Cell Distribution Width 13.3 % (12.1-15.1); White Blood Count 4.82 10^3/uL (3.29-11.43)
[2024-07-24 12:34] LABS: INR 1.05 (0.8-1.2)
[2024-07-24 12:35] LABS: Partial Thromboplastin Time 35.9 SECONDS (23.9-36.7)
[2024-07-24 12:43] LABS: Alanine Aminotransferase 34 U/L (0-33); Albumin Level 4.2 g/dL (3.5-5.2); Alkaline Phosphatase 74 U/L (35-105); Anion Gap 15.1 (5-19); Aspartate Amino Transferase 29 U/L (0-32); Blood Urea Nitrogen 9 mg/dL (6-20); Calcium 8.4 mg/dL (8.5-10.5); Carbon Dioxide 24 mmol/L (22-29); Chloride 109 mmol/L (98-107); Creatinine Clr Calc Pharmacy 58.5307; Globulin 2.1 g/dL (1.3-4.6); Glomerular Filtration Rate 58.9 mL/min (90-130); Glucose 117 mg/dL (65-115); Osmolality Calculated 298 mOsm/kg (285-295); Potassium 4.1 mmol/L (3.5-5.1); Sodium 144 mmol/L (136-145); Total Bilirubin 0.3 mg/dL (0.15-1.2); Total Protein 6.3 g/dL (6.6-8.7)
== END 2024-07-31 23:59 | disposition home or self-care (01) ==
LOC: ONCMED 11:55
PROVIDERS: PCP Family Medicine; Visit Provider Internal Medicine Hematology & Oncology
DX: D68.51 Activated protein C resistance (principal)
CPT/HCPCS: 36415; 80053; 85025; 85610; 85730

== ENCOUNTER 2024-09-05 13:37 | Outpatient (CLI) | payer MEDICAID, SELFPAY ==
--- NOTE | 2024-09-05 14:00 | MM_ITS ---
WS: [id number] BILATERAL 3D TOMOSYNTHESIS DIGITAL SCREENING MAMMOGRAPHY WITH CAD CLINICAL INFORMATION: screening HISTORY: Screening mammogram. No current complaints. COMPARISON: Baseline TECHNIQUE: Bilateral CC and MLO views. FINDINGS: The breasts are composed of heterogeneous fibroglandular density tissue, which can limit the detectio n of small underlying mass lesions. 6 mm ovoid nodule anterior LEFT breast upper quadrant best seen o n the MLO view. Recommend further evaluation with LEFT breast diagnostic mammography and ultrasound. This may represent an intramammary node but indeterminate. Unremarkable RIGHT breast. MM/MM [facility] tomosynthesis [id number] IMPRESSION: DENSITY: The breasts are heterogeneously dense, which may obscure small masses. BI-RADS: 0 - Incomplete: Need additional imaging evaluation FOLLOW UP: Need Additional Imaging Recommend LEFT breast diagnostic mammography and ultrasound.
== END 2024-09-05 13:38 | disposition home or self-care (01) ==
LOC: RAD 13:38
PROVIDERS: PCP Family Medicine; Visit Provider Family Medicine
DX: Z12.31 Encounter for screening mammogram for malignant neoplasm of breast (principal); R92.333 Mammographic heterogeneous density, bilateral breasts; N63.21 Unspecified lump in the left breast, upper outer quadrant
CPT/HCPCS: 77063; 77067

== ENCOUNTER 2024-09-22 12:37 | Outpatient (CLI) | payer MEDICAID, SELFPAY ==
--- NOTE | 2024-09-22 13:57 | US_ITS ---
LEFT 3D TOMOSYNTHESIS DIGITAL MAMMOGRAPHY WITH CAD CLINICAL INFORMATION: left breast mass HISTORY: Additional views COMPARISON: 09/05/2024 TECHNIQUE: 3 views of the left breast were obtained. FINDINGS: The left breast is composed of heterogeneous fibroglandular density tissue, which can limit the detection of small underlying mass lesions. Previously described ovoid nodule upper outer LEFT breast is unchanged. This is most likely an intramammary lymph node with visualized fatty hilum more apparent today. Ultrasound is pending. ULTRASOUND BREAST LEFT TECHNIQUE: Ultrasound left breast focused area of concern. CLINICAL INFORMATION: left breast mass FINDINGS: Ultrasound LEFT breast upper outer quadrant. No suspicious underlying cystic or solid lesions. Incidental ductal ectasia near the areola. No suspicious lesions to target for biopsy. Recommend return to annual screen mammography. IMPRESSION DENSITY: The breasts are heterogeneously dense, which may obscure small masses. BI-RADS: 2 - Benign FOLLOW UP: 1 Year Follow-up Recommend return to annual screening mammography. MTDD
== END 2024-09-22 12:38 | disposition home or self-care (01) ==
LOC: RAD 12:38
PROVIDERS: PCP Family Medicine; Visit Provider Family Medicine
DX: N63.21 Unspecified lump in the left breast, upper outer quadrant (principal); R92.333 Mammographic heterogeneous density, bilateral breasts
CPT/HCPCS: 76642; 77061; G0279

== ENCOUNTER 2024-09-23 09:25 | Outpatient (RCR) | payer MEDICAID, SELFPAY | END 2024-09-30 23:59 | disposition home or self-care (01) | LOC: SPT 09:25 | PROVIDERS: Visit Provider Orthopaedic Surgery | DX: M54.9 Dorsalgia, unspecified (principal); G89.29 Other chronic pain | CPT/HCPCS: 97161 ==

== ENCOUNTER 2024-09-28 16:29 | Emergency (ER) | payer MEDICAID, SELFPAY ==
--- NOTE | 2024-09-28 16:31 | XRR_ITS ---
PROCEDURE INFORMATION: Exam: XR Right Shoulder Exam date and time: 09/28/2024 4:55 PM Age: 49 years old Clinical indication: Right; Patient HX: RT posterior shoulder pain; No known injury; Recent bronchitis diagnosis TECHNIQUE: Imaging protocol: Radiologic exam of the right shoulder. Views: 2 or more views. COMPARISON: CT angio chest PE protcl [id number] 07/20/2024 11:16 PM FINDINGS: Bones/joints: Normal. Soft tissues: Normal. XR/XR shoulder RT min 2V* [id number] IMPRESSION: No acute findings.
[2024-09-28 16:34] VITALS: BP 130/77; PULSE 91; RESP 18; TEMP 36.5; O2SAT 100; BMI 22.8
--- NOTE | 2024-09-28 17:24 | ED_ITS ---
HPI - Extremity Problem General: Chief complaint: Extremity Problem,Nontraumatic Stated complaint: pain in rt shoulder Time Seen by Provider: 09/28/24 17:09 Source: patient Mode of arrival: ambulatory Limitations: no limitations History of Present Illness: 49-year-old female states she been havin g right shoulder pain over the last 4 days. States pains over her rhomboid muscle is much worse with palpation and movement of the right arm denies any injuries rates the pain a 3 out of 10 is worse with movement. Associated symptoms: Deny chest pain, fever(s) or rash Related Data Previous Rx's Medication Instructions Recorded enoxaparin 100 mg/mL subcutaneous 100 mg SUBCUT Q12H #180 mL 06/26/24 syringe (Lovenox) fluticasone propionate 50 2 spray intranasal BID #16 grams 07/17/24 mcg/actuation nasal spray,suspension escitalopram oxalate 10 mg tablet 10 mg PO DAILY #90 tabs 08/20/24 (Lexapro) meloxicam 15 mg tablet 15 mg PO DAILY #90 tabs 08/20/24 methocarbamol 750 mg tablet 750 mg PO Q6H PRN spasms #20 tabs 09/28/24 naproxen 500 mg tablet (Naprosyn) 500 mg PO BID PRN pain #20 tabs 09/28/24 Allergies Allergy/AdvReac Type Severity Reaction Status Date / Time apixaban [From Eliquis] Allergy ALGY-Hives Verified 09/28/24 16:38 gabapentin Allergy ALGY-Hives Verified 09/28/24 16:38 morphine Allergy ALGY-Hives Verified 09/28/24 16:38 trazodone AdvReac Intermediate ADR-Halluci Verified 09/28/24 16:38 nating Review of Systems Const: Denies: fever(s), chills, body aches or change in appetite ENMT: Denies: throat pain or dental pain Card: Denies: chest pain Resp: Denies: dyspnea GI: Denies: abdominal pain, nausea, vomiting or diarrhea Musc: Reports: extremity pain; Denies: neck pain or back pain Skin/Breast: Denies: rash Neuro: Denies: headache(s) PFSH ED PFSH: Medical History Moderate major depression 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 Local reaction to bee sting Allergic rhinitis due to allergen Asthma Tobacco dependency Cessation discussed DVT (deep venous thrombosis) Lovenox dose increased to discharge Factor 5 Leiden mutation, heterozygous Pulmonary emboli See above Surgical History H/O neck surgery (06/15/16) Cervical laminectomy/discectomy with anterior cervical fusion History of back surgery (11/26/17) L4/L5 hemilaminectomy with discectomy and foraminotomies History of cholecystectomy History of History of tubal ligation Family History Mother Cancer Cervical cancer Grandmother Cancer Maternal-bone Grandfather Cancer Maternal-lung Grandfather Cancer Paternal-lung Grandmother Cancer Paternal-lung Other Bleeding disorder Clotting disorder Lung disease Denies family history of Diabetes CAD (coronary artery disease) Dementia Hyperlipidemia Psychiatric illness Chronic kidney disease (CKD) Anesthesia complication Hypertension Stroke Social History Smoking and tobacco/nicotine status: current every day tobacco/nicotine user Alcohol intake: current Alcohol intake frequency: holidays/special occasions only Substance/Drug Use: never Lives independently: Yes Marital status: Single Number of children: 5 Current occupational status: unemployed Special sergio needs: No Agree to transfusion: Yes Physical Exam Const: COMMON NORMALS: no acute distress, patient oriented x3 and healthy appearing HENMT: COMMON NORMALS: normocephalic and atraumatic HEAD & SCALP: normocephalic and atraumatic Eye: COMMON NORMALS: conjunctivae normal CONJUNCTIVA: Yes conjunctivae normal Neck/C-Spine: COMMON NORMALS: full ROM and supple Chest: COMMONS NORMALS: normal inspection of the chest Resp: COMMON NORMALS: normal respiratory effort Extremity: COMMON NORMALS: normal to inspection and full ROM NARRATIVE EXTREMITY EXAM: Tenderness noted over right rhomboid muscle does have pain with range of motion no obvious deformities distal pulses intact Neuro: COMMON NORMALS: patient oriented x3, moves all extremities and no focal motor deficits Psych: COMMON NORMALS: mental status grossly normal, Normal thought process present and cooperative THOUGHT PROCESS: Normal thought process present Skin: COMMON NORMALS: no rashes or lesions noted and no wounds GENERAL SKIN EXAM: no rashes or lesions noted Course Vital Signs: Vital signs: Vital Signs Temperature 97.7 F 09/28/24 16:34 Pulse Rate 91 09/28/24 16:34 Respiratory Rate 18 09/28/24 16:34 Blood Pressure 130/77 09/28/24 16:34 Pulse Oximetry 100 09/28/24 16:34 Oxygen Delivery Me thod Room Air 09/28/24 16:34 MDM - Extremity (Nontraumatic) Medical Decision Making Patient presents for shoulder pain is likely muscular in nature we will place her on Naprosyn Robaxin she is follow-up with PCP return if worsening she understands agrees to plan. XR interpretation done by ED provider, pending radiology final review ED provider radiology interpretation(s): X-ray right shoulder no acute fracture Discharge Plan Discharge Patient Disposition: Home Clinical Impression: Pain in right shoulder Condition: Stable Prescriptions: New methocarbamol 750 mg tablet 750 mg PO Q6H PRN (Reason: spasms) Qty: 20 0RF naproxen [Naprosyn] 500 mg tablet 500 mg PO BID PRN (Reason: pain) Qty: 20 0RF No Action enoxaparin [Lovenox] 100 mg/mL syringe 100 mg SUBCUT Q12H Qty: 180 3RF escitalopram oxalate [Lexapro] 10 mg tablet 10 mg PO DAILY Qty: 90 1RF meloxicam 15 mg tablet 15 mg PO DAILY Qty: 90 1RF fluticasone propionate 50 mcg/actuation spray,suspension 2 spray intranasal BID Qty: 16 1RF Rx Instructions: administer into each nostril Discharge Orders: Discharge ED (Routine); Ordered 09/28/24 Ordered By: Gabo Davis Discharge Diet: Advance as tolerated Discharge Activity: Resume usual activity Patient Instructions: Shoulder Pain (ED) Coding Level of Care Code ED Sliver Lap Tender for Renetta Burton
[2024-09-28] MEDS: methocarbamol 750 mg Tablet 1500 MG PO (17:29)
[2024-09-28] MEDS: HYDROcodone-acetaminophen 5-325 mg Tablet 1 TAB PO (17:29)
[2024-09-28 17:33] VITALS: BP 127/79; PULSE 83; O2SAT 96
== END 2024-09-28 17:34 | disposition home or self-care (01) ==
PROVIDERS: Emergency Provider Emergency Medicine
DX: M25.511 Pain in right shoulder (principal); Z72.0 Tobacco use
CPT/HCPCS: 73030; 99283

== ENCOUNTER 2024-09-30 18:12 | Emergency (ER) | payer MEDICAID, SELFPAY ==
[2024-09-30 18:46] VITALS: BP 101/65; PULSE 92; TEMP 36.7; O2SAT 99; BMI 22.8
--- NOTE | 2024-09-30 19:41 | W.ED.EXTPRO ---
HPI - Extremity Problem General: Chief complaint: Extremity Problem,Nontraumatic Stated complaint: R. arm numb and tingling Time Seen by Provider: 09/30/24 19:17 Source: patient Mode of arrival: ambulatory Limitations: no limitations History of Present Illness: Patient is a 49-year-old female presents to ED today with complaint of right shoulder pain over the past week. She was seen here at our facility few days ago and prescribed naproxen as well as methocarbamol. She had x-rays of the right shoulder which were unremarkable. Patient states these medications are not helping whatsoever. She is having intermittent numbness to the right arm depending on how the right shoulder is positioned. She states all of her pain is to her right posterior shoulder along the medial aspect of her scapula. She currently, at time of examination is not having any numbness or tingling. She has not noticed any weakness to the arm. She has not noticed any color or temperature changes to the extremity or swelling. She states she has a plate in her neck but is not having any obvious neck pain. No fevers or headaches. MD Complaint: joint pain Onset (ago): week(s) Pain Consistency: constant Location: right and upper extremity Quality: burning and sharp Radiation: none Relieving factors: nothing Exacerbating factors: range of motion (of R shoulder) Associated symptoms: Reports no associated symptoms; Deny chest pain or fever(s) Related Data Previous Rx's Medication Instructions Recorded enoxaparin 100 mg/mL subcutaneous 100 mg SUBCUT Q12H #180 mL 06/26/24 syringe (Lovenox) fluticasone propionate 50 2 spray intranasal BID #16 grams 07/17/24 mcg/actuation nasal spray,suspension escitalopram oxalate 10 mg tablet 10 mg PO DAILY #90 tabs 08/20/24 (Lexapro) meloxicam 15 mg tablet 15 mg PO DAILY #90 tabs 08/20/24 methocarbamol 750 mg tablet 750 mg PO Q6H PRN spasms #20 tabs 09/28/24 naproxen 500 mg tablet (Naprosyn) 500 mg PO BID PRN pain #20 tabs 09/28/24 hydrocodone 5 mg-acetaminophen 325 1 tab PO Q6H PRN pain #14 tabs 09/30/24 mg tablet methylprednisolone 4 mg tablets in See Rx Instructions PO .COMPLEX 09/30/24 a dose pack (Medrol (Sloan)) #21 ea Allergies Allergy/AdvReac Type Severity Reaction Status Date / Time apixaban [From Eliquis] Allergy ALGY-Hives Verified 09/30/24 18:51 gabapentin Allergy ALGY-Hives Verified 09/30/24 18:51 morphine Allergy ALGY-Hives Verified 09/30/24 18:51 trazodone AdvReac Intermediate ADR-Halluci Verified 09/30/24 18:51 nating Review of Systems Const: Denies: fever(s), chills, body aches, fatigue or malaise Card: Denies: chest pain Resp: Denies: dyspnea Musc: Reports: joint pain (R shoulder); Denies: neck pain, back pain, extremity pain, extremity swelling, joint swelling, joint redness, joint stiffness, muscle cramps or muscle weakness Neuro: Reports: numbness in extremities (intermittent numbness R arm depending on position of R shoulder); Denies: weakness in extremities PFSH ED PFSH: Medical History Moderate major depression 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 Local reaction to bee sting Allergic rhinitis due to allergen Asthma Tobacco dependency Cessation discussed DVT (deep venous thrombosis) Lovenox dose increased to discharge Factor 5 Leiden mutation, heterozygous Pulmonary emboli See above Surgical History H/O neck surgery (06/15/16) Cervical laminectomy/discectomy with anterior cervical fusion History of back surgery (11/26/17) L4/L5 hemilaminectomy with discectomy and foraminotomies History of cholecystectomy History of History of tubal ligation Family History Mother Cancer Cervical cancer Grandmother Cancer Maternal-bone Grandfather Cancer Maternal-lung Grandfather Cancer Paternal-lung Grandmother Cancer Paternal-lung Other Bleeding disorder Clotting disorder Lung disease Denies family history of Diabetes CAD (coronary artery disease) Dementia Hyperlipidemia Psychiatric illness Chronic kidney disease (CKD) Anesthesia complication Hypertension Stroke Social History Smoking and tobacco/nicotine status: current every day tobacco/nicotine user Alcohol intake: current Alcohol intake frequency: holidays/special occasions only Substance/Drug Use: never Lives independently: Yes Marital status: Single Number of children: 5 Current occupational status: unemployed Special sergio needs: No Agree to transfusion: Yes Physical Exam Const: COMMON NORMALS: no acute distress, average body habitus, patient oriented x3, no limitations, healthy appearing, alert and well nourished Neck/C-Spine: COMMON NORMALS: no lymphadenopathy and no meningeal signs GENERAL: Yes normal visual inspection CERVICAL SPINE: No pain with cervical ROM, No Cervical spine tenderness, No step off deformity, No Paracervical muscle tenderness and No Paracervical spasm OTHER: states she chronically has limited ROM of neck due to previous surgery/hardware; at baseline Chest: COMMONS NORMALS: normal inspection of the chest and normal palpation of entire chest wall Resp: COMMON NORMALS: normal respiratory effort and clear to auscultation bilaterally AUSCULTATION: clear to auscultation bilaterally Cardio: COMMON NORMALS: regular rate and regular rhythm RATE: regular rate RHYTHM: regular rhythm Back/Pelvis: BACK IMAGE (FEMALE): 1. point tender to palpation; reproducible with ROM of R shoulder Extremity: COMMON NORMALS: normal to inspection, capillary refill normal, no joint enlargement and no clubbing, cyanosis or edema GENERAL: Yes normal exam except as noted RIGHT UPPER EXTREMITY: Yes shoulder joint (TTP medial lower edge scapula) Right shoulder: Yes Right shoulder joint ROM exam (pain at area of tenderness with flexion/abduction of shoulder), Yes Right shoulder joint neurovascular exam (pulses throughout extremity normal; no color/temp changes or edema) and Yes Right shoulder joint other findings (full strength noted to R UE) Neuro: COMMON NORMALS: patient oriented x3, moves all extremities, no focal motor deficits and no sensory deficits noted SENSORIUM/ORIENTATION: Yes alert MENINGEAL SIGNS: Yes no meningeal signs Course Vital Signs: Vital signs: Vital Signs Temperature 98.0 F 09/30/24 18:46 Pulse Rate 87 09/30/24 20:04 Respiratory Rate 16 09/30/24 20:04 Blood Pressure 103/64 09/30/24 20:04 Pulse Oximetry 99 09/30/24 20:04 Oxygen Delivery Me thod Room Air 09/30/24 20:04 MDM - Extremity (Nontraumatic) Medical Decision Making Patient here for pain to the medial edge of her right scapula. This is directly reproducible with palpation and range of motion of the shoulder joint. X-rays performed on her last ED visit. At time of examination, she is not having any numbness or tingling to the extremity. She has no weakness whatsoever to the arm. She has been trialed on muscle relaxers and anti-inflammatories without much relief. Will place her on steroids and give her pain medication that she can take sparingly for severe pain. Recommend she follow-up with her primary care provider for further evaluation and treatment options. No radiology studies performed this visit Discharge Plan Discharge Patient Disposition: Home Clinical Impression: Acute pain of right shoulder Condition: Stable Prescriptions: New hydrocodone-acetaminophen 5-325 mg tablet 1 tab PO Q6H PRN (Reason: pain) Qty: 14 0RF methylprednisolone [Medrol (Sloan)] 4 mg tablets,dose pack See Rx Instructions .ROUTE .COMPLEX Qty: 21 0RF Rx Instructions: orally per package directions No Action enoxaparin [Lovenox] 100 mg/mL syringe 100 mg SUBCUT Q12H Qty: 180 3RF escitalopram oxalate [Lexapro] 10 mg tablet 10 mg PO DAILY Qty: 90 1RF meloxicam 15 mg tablet 15 mg PO DAILY Qty: 90 1RF fluticasone propionate 50 mcg/actuation spray,suspension 2 spray intranasal BID Qty: 16 1RF Rx Instructions: administer into each nostril methocarbamol 750 mg tablet 750 mg PO Q6H PRN (Reason: spasms) Qty: 20 0RF naproxen [Naprosyn] 500 mg tablet 500 mg PO BID PRN (Reason: pain) Qty: 20 0RF Discharge Orders: Discharge ED (Routine); Ordered 09/30/24 Ordered By: Eneida Hong Activity Restrictions/Additional Instructions: As we discussed, I will like you to follow-up with your primary care provider for further evaluation of your shoulder discomfort. Coding Level of Care Code ED Clinical Applications Specialist for Renetta Burton
[2024-09-30] MEDS: ketorolac 60 mg/2 mL INJ IM (19:54)
[2024-09-30] MEDS: dexamethasone 10 mg/mL INJ 8 MG IM (19:54)
[2024-09-30 20:04] VITALS: BP 103/64; PULSE 87; RESP 16; O2SAT 99
[2024-09-30 20:06] VITALS: BP 103/64; PULSE 89; RESP 16; O2SAT 98
== END 2024-09-30 20:06 | disposition home or self-care (01) ==
PROVIDERS: Emergency Provider Physician Assistant
DX: M25.511 Pain in right shoulder (principal); Z72.0 Tobacco use
CPT/HCPCS: 96372; 99284; J1100; J1885

== ENCOUNTER 2024-10-01 06:00 | Outpatient (RCR) | payer MEDICAID, SELFPAY | END 2024-10-31 23:59 | disposition home or self-care (01) | LOC: SPT 06:00 | PROVIDERS: PCP Family Medicine; Visit Provider Orthopaedic Surgery | DX: M54.9 Dorsalgia, unspecified (principal); G89.29 Other chronic pain | CPT/HCPCS: 97110 ==

== ENCOUNTER 2024-11-21 09:49 | Outpatient (CLI) | payer MEDICAID, SELFPAY ==
--- NOTE | 2024-11-21 10:04 | XR_ITS ---
WS: [id number] Exam: XR lumbar spine 2-3V* [id number] Date/Time of Exam: 11/21/2024 10:16 AM Reason For Exam: BACK PAIN Comparison 07/08/2024. Complete degeneration of the L4-5 disc. Mild narrowing of the L5-S1 disc. No fracture. Spondylosis. Mild facet DJD at all levels. There is straightening. XR/XR lumbar spine 2-3V* [id number] IMPRESSION: 1. Degenerative changes of the lower lumbar spine as detailed above. No fractur e or malalignment. Straightening.
--- NOTE | 2024-11-21 10:04 | XR_ITS ---
WS: [id number] Exam: XR cervical spine 3V* [id number] Date/Time of Exam: 11/21/2024 10:16 AM Reason For Exam: BACK PAIN Comparison 07/27/2016. There is anterior fusion of the cervical spine from C4-C6 with plate and screw fixation. Intervening disc spacers are noted. The fusion remains in good alignment without change. Degenerative narrowing of the C3-4 disc with spondylosis. Posterior elements are intact. Normal paraspinal soft tissues. The odontoid is intact. XR/XR cervical spine 3V* [id number] IMPRESSION: 1. Stable appearing anterior cervical fusion from C4-C6.
== END 2024-11-21 09:50 | disposition home or self-care (01) ==
LOC: RAD 09:54
PROVIDERS: PCP Family Medicine; Visit Provider Emergency Medicine
DX: Z02.71 Encounter for disability determination (principal); M47.896 Other spondylosis, lumbar region; M48.07 Spinal stenosis, lumbosacral region; Z98.1 Arthrodesis status; M48.02 Spinal stenosis, cervical region; M47.892 Other spondylosis, cervical region
CPT/HCPCS: 72040; 72100

== ENCOUNTER 2024-11-24 12:57 | Oncology outpatient (recurring) (ONCR) | payer MEDICAID, SELFPAY ==
[2024-11-24 13:41] LABS: Basophils % 0.5 %; Eosinophils # 0.2 10^3/uL (0.0-0.8); Eosinophils % 3.8 %; Lymphocytes # 2.2 10^3/uL (0.8-4.8); Lymphocytes % 35.7 %; Mean Corpuscular HGB Conc 32.9 g/dL (30-55); Mean Corpuscular Volume 94.2 fl (85-98); Mean Platelet Volume 9.2 fL (7.4-10.4); Monocytes # 0.5 10^3/uL (0.2-0.9); Monocytes % 7.8 %; Neutrophils # 3.14 10^3/uL (1.8-7.7); Nucleated Red Blood Cells % 0 %; Platelet Count 362 10^3/cmm (157-399); Red Blood Count 3.61 10^6/uL (3.85-5.65); Red Cell Distribution Width 13.4 % (12.1-15.1); White Blood Count 6.03 10^3/uL (3.29-11.43)
[2024-11-24 13:49] LABS: D Dimer <= 0.27 ug/mLFEU (0-0.59)
[2024-11-24 13:51] LABS: Alanine Aminotransferase 24 U/L (0-33); Albumin Level 4.4 g/dL (3.5-5.2); Alkaline Phosphatase 71 U/L (35-105); Blood Urea Nitrogen 15 mg/dL (6-20); Calcium 9.3 mg/dL (8.5-10.5); Carbon Dioxide 23 mmol/L (22-29); Chloride 105 mmol/L (98-107); Creatinine Clr Calc Pharmacy 83.0808; Globulin 2.7 g/dL (1.3-4.6); Glomerular Filtration Rate 88.6 mL/min (90-130); Glucose 98 mg/dL (65-115); Osmolality Calculated 289 mOsm/kg (285-295); Sodium 139 mmol/L (136-145); Total Bilirubin 0.2 mg/dL (0.15-1.2); Total Protein 7.1 g/dL (6.6-8.7)
[2024-11-24 13:53] LABS: Anion Gap 15.3 (5-19); Aspartate Amino Transferase 18 U/L (0-32); Potassium 4.3 mmol/L (3.5-5.1)
[2024-11-24 13:54] LABS: Lactate Dehydrogenase 190 U/L (135-214)
== END 2024-11-28 23:59 | disposition home or self-care (01) ==
PROVIDERS: Internal Medicine Hematology & Oncology; PCP Family Medicine; Visit Provider Internal Medicine Medical Oncology
DX: D68.51 Activated protein C resistance; Z53.9 Procedure and treatment not carried out, unspecified reason
CPT/HCPCS: 36415; 80053; 83615; 85025; 85378

== ENCOUNTER 2024-12-10 10:02 | Oncology outpatient (recurring) (ONCR) | payer MEDICAID, SELFPAY ==
--- NOTE | 2024-12-10 10:15 | MR_ITS ---
WS: [id number] MRI LUMBAR SPINE NONCONTRAST HISTORY: Low back pain with prior lumbar spine surgery. COMPARISON: 05/31/2018 TECHNIQUE: Sagittal and axial multisequence imaging is submitted. Anterior cervical fusion C4-C6. Straightening of the normal lumbar lordosis. Retrolisthesis of L4 by 3.5 mm. Progression of degenerative disc disease and loss of height at L4-5 since 2018. Chronic changes within the adjacent L4 and L5 endplates. No acute fracture or marrow edema. Conus terminates normally at L1-2 disc level. L1-L2: Normal. L2-L3: Minimal LEFT facet arthritis. No stenosis. L3-L4: Mild annular disc bulging with ligamentum flavum and facet arthritis. Mild encroachment upon the ventral thecal sac. Minimal foraminal stenosis. L4-L5: Marked annular disc bulging with posterior L4 osteophytes encroaching upon the ventral thecal sac and foramina. Central disc protrusion contacts the traversing L5 nerve roots. Ligamentum flavum and facet arthritis. LEFT hemilaminectomy. Mild to moderate bilateral foraminal stenosis. Foraminal st enosis does appear improved since 2018. L5-S1: Mild disc bulging with minimal encroachment upon the S1 nerve roots. Mild bilateral foraminal stenosis. Paravertebral soft tissues are negative. MR/MR lumbar spine wo con* [id number] IMPRESSION: 1. Progression of degenerative disc space narrowing and chronic endplate briseno es at L4-5. Severe disc space narrowing. 2. L4 retrolisthesis by 3.5 mm encroaching upon the ventral thecal sac. 3. L4-5: Posterior L4 osteophytes and disc bulging with a central disc protrus ion contacts the traversing L5 nerve roots. LEFT hemilaminectomy defect. Mild c entral stenosis. Mild to moderate foraminal stenosis. 4. L5-S1: Mild bilateral foraminal stenosis. Minimal disc contact on the S1 ne rve roots. 5. Minimal foraminal stenosis at L3-4.
== END 2024-12-29 23:59 | disposition home or self-care (01) ==
LOC: RAD 10:03 → ONCMED 12-11 08:59
PROVIDERS: Family Provider Family Medicine; PCP Family Medicine; Visit Provider Orthopaedic Surgery
DX: Z53.9 Procedure and treatment not carried out, unspecified reason (principal); D68.51 Activated protein C resistance; M48.062 Spinal stenosis, lumbar region with neurogenic claudication; M54.50 Low back pain, unspecified
CPT/HCPCS: 72148

== ENCOUNTER → 2024-12-16 16:45 | Outpatient (BNVA) | payer MEDICAID, SELFPAY | PROVIDERS: Family Provider Family Medicine; PCP Family Medicine; Visit Provider Orthopaedic Surgery | DX: M48.062 Spinal stenosis, lumbar region with neurogenic claudication (principal) | CPT/HCPCS: 80053; 81001; 85025 ==

== ENCOUNTER 2024-12-24 10:23 | Observation (INO) | payer MEDICAID, SELFPAY ==
[2024-12-24] VITALS (17 sets, daily range): BP systolic 96–141; BP diastolic 48–88; PULSE 77–104; RESP 16–17; TEMP 36.1–36.8; O2SAT 92–100; BMI 25.2; BMI 26.7
[2024-12-24 06:02] LABS: OR HCG Qualitative Urine Negative (Negative)
[2024-12-24] MEDS: sodium chloride 0.9% 1,000 ML 30 ML IV (06:12)
--- NOTE | 2024-12-24 06:34 | W.PM.OPSUD ---
Surgery/Procedure H&P Update DATE OF PROCEDURE: December 24, 2024 DATE H&P PERFORMED: 12/16/24 H&P UPDATE INFORMATION: I have reviewed H&P completed within last 30 days, I have examined patient prior to procedure and No changes to prior documentation PREOP DIAGNOSIS: L4-5 spondylolisthesis; lumbar stenosis with neurogenic claudication PLANNED PROCEDURE: Operation Date: 12/24/24 07:00 Proposed Procedures p Posterior Lumbar Interbody Fusion PLIF(Not Applicable) - Felipe Up DO
--- NOTE | 2024-12-24 06:47 | P.ANESASSM_ITS ---
Pre-Anesthetic Assessment Height/Weight: Height 5 ft 2 in Weight 138 lb Temp Pulse Resp BP Pulse Ox O2 Del Method 97.3 F L 89 17 135/80 96 Room Air 12/24/24 06:04 12/24/24 06:04 12/24/24 06:04 12/24/24 06:04 12/24/24 06:04 12/24/24 06:08 Preop Diagnosis: L4-5 spondylolisthesis; lumbar stenosis with neurogenic claudication Operation Date: 12/24/24 07:00 Proposed Procedures p Posterior Lumbar Interbody Fusion PLIF(Not Applicable) - Felipe Up, DO Was Beta Trisha taken within 24 hours: N/A Was Clonidine taken within 24 hours: N/A Last intake: Intake Last Liquid Date 12/23/24 Last Liquid Time 20:00 Last Solid Date 12/23/24 Last Solid Time 19:00 Social Tobacco and No alcohol Exam alert, oriented x 3, clear to auscultation bilaterally and regular rate & rhythm Airway Submandibular: within normal limits Cervical ROM: within normal limits Mallampati: Class II Dentition: full Anesthetic Plan ASA status: 3 Anesthesia: General Other: No prior issues with anesthesia NPO since yesterday evening History of restless leg syndrome on propranolol Current smoker Factor V Leiden deficiency, on chronic Lovenox. Held since 12/22 Labs 12/16/2024 reviewed and acceptable for procedure EKG showing sinus tachycardia. Probable old anterior septal MD Plan for GETA Medications/Allergies Home Medications ?Medication ?Instructions ?Recorded ?Confirmed ?Last Taken ?Type enoxaparin 100 mg/mL subcutaneous 100 mg SUBCUT Q12H # 180 mL 06/26/24 12/23/24 12/22/24 21:00 Rx syringe (Lovenox) meloxicam 15 mg tablet 15 mg PO DAILY #90 tabs 11/2 12/23/24 12/22/24 05:00 Rx escitalopram oxalate 20 mg tablet 20 mg PO DAILY #90 t abs 11/24/24 12/23/24 12/22/24 19:00 Rx fluticasone propionate 50 2 spray intranasal BID #16 g vania 12/18/24 12/23/24 Unknown Rx mcg/actuation nasal spray,suspension levocetirizine 5 mg tablet (Xyzal) 5 mg PO DAILY #90 t abs 12/18/24 12/23/24 12/22/24 05:00 Rx nicotine 14 mg/24 hr daily 1 patch transdermal DAILY # 28 ea 12/18/24 12/23/24 Unknown Rx transdermal patch pramipexole 0.25 mg tablet 0.25 mg PO DAILY #60 tabs 0 12/18/24 12/23/24 12/22/24 19:00 Rx Allergies Allergy/AdvReac Type Severity Reaction Status Date / Time apixaban (From Eliquis) Allergy ALGY-Hives Verified 12/23/24 12:02 gabapentin Allergy ALGY-Hives Verified 12/23/24 12:02 morphine Allergy ALGY-Hives Verified 12/23/24 12:02 trazodone AdvReac Intermediate ADR-Halluci Verified 12/23/24 12:02 nating Current Medications Generic Name Dose Route Start Last Admin Trade Name Freq PRN Reason Stop Dose Admin Sodium Chloride 1,000 mls @ 30 mls/hr 12/24/24 06:00 12/24/24 06:12 Sodium Chloride 0.9% IV 12/25/24 05:59 30 mls/hr .Q24H CONRAD Administration PFSH Anesthesia Medical History Restless leg Moderate major depression 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 Local reaction to bee sting Allergic rhinitis due to allergen Asthma Tobacco dependency Cessation discussed DVT (deep venous thrombosis) Lovenox dose increased to discharge Factor 5 Leiden mutation, heterozygous Pulmonary emboli See above Surgical History H/O neck surgery (06/15/16) Cervical laminectomy/discectomy with anterior cervical fusion History of back surgery (11/26/17) L4/L5 hemilaminectomy with discectomy and foraminotomies History of cholecystectomy History of History of tubal ligation Family History Mother Cancer Cervical cancer Grandmother Cancer Maternal-bone Grandfather Cancer Maternal-lung Grandfather Cancer Paternal-lung Grandmother Cancer Paternal-lung Other Bleeding disorder Clotting disorder Lung disease Denies family history of Diabetes CAD (coronary artery disease) Dementia Hyperlipidemia Psychiatric illness Chronic kidney disease (CKD) Anesthesia complication Hypertension Stroke Social History Smoking and tobacco/nicotine status: current every day tobacco/nicotine user Alcohol intake: current Alcohol intake frequency: holidays/special occasions only Substance/Drug Use: never Lives independently: Yes Marital status: Single Number of children: 5 Current occupational status: unemployed Special sergio needs: No Agree to transfusion: Yes Data Anesthesia Cardiac Studies: Echocardiogram Ultrasound 10/16/19
[2024-12-24] MEDS: ceFAZolin 2,000 mg SDV 2000 MG IVP ×3 (06:59→21:32)
[2024-12-24] MEDS: lidocaine-epi 1% 20 mL INJ INJECTION (07:45)
[2024-12-24] MEDS: VANCOMYCIN ADD-Vantage 1,000 MG VIAL 1000 MG IRRIGATION (07:46)
[2024-12-24] MEDS: heparin, porcine 1,000 unit/mL INJ 10 mL 10000 UNIT IRRIGATION (07:59)
--- NOTE | 2024-12-24 09:25 | PM.OP ---
Operative Report Date of procedure: December 24, 2024 Pre-op diagnosis: Lumbar stenosis with neurogenic claudication Post-op diagnosis: same Procedure done: 1. L4/5 Interbody fusion with posterolateral fusion 2. Instrumentation L4-L5 3. Interbody Cage at L4/5 4. L4-5 laminectomy with facetectomies 5. use of autograft from same incision 6. allograft 7. Bone marrow aspirate from right iliac crest 8. Use of computer navigation stereotactic for spine Surgeon: Felipe Up DO Estimated blood loss (mL): 50 Procedure: 1. L4/5 Interbody fusion with posterolateral fusion 2. Instrumentation L4-L5 3. Interbody Cage at L4/5 4. L4-5 laminectomy with facetectomies 5. use of autograft from same incision 6. allograft 7. Bone marrow aspirate from right iliac crest 8. Use of computer navigation stereotactic for spine Patient is brought to the operative suite. After undergoing anesthesia, the patient had neuro monitoring attached. Patient was then placed in the prone position on the Mike table. All areas of impingement were well-padded. Patient was then prepped and draped in the normal sterile fashion. Skin incision was then made over the L4 to L5 levels. Subperiosteal dissection was made out to the transverse processes of L4 and L5. Next attention was brought to the Nefsis bone marrow aspirate kit was used to aspirate bone marrow aspirate. This was done by using the sharp probe to open up the bone. Aspiration was performed and then the blunt probe was then used to dissect down to through the bone tunnel. An aspirating well drawn back a millimeter approximately 20 cc of bone marrow aspirate was used. Admixed with the allograft and autograft bone that will be used. Next attention was brought to placing 2 pins into the right iliac crest will later be removed. The fiducial was attached to this. And the C-arm was brought in and spun around the patient. The information from the C-arm was then loaded the computer and later used for placing the pedicle screws under computer navigation. The technique for placing the pedicle screws was to use a drill followed by the gearshift probe linked to computer navigation. Followed by the ball probe to feel the superior inferior medial lateral steven of the pedicles. Then placement of the screws with computer navigation. Was done at each pedicle. Screws were placed at L4 bilaterally and L5. Next attention was brought to performing the laminectomy of L4. This was done using the high-speed bur Kerrisons and curettes. Once the lamina was removed and then attention was brought to performing a partial facetectomy on the contralateral side. This was done again using the high-speed bur curettes and Kerrisons. The ligamentum flavum was taken down bilaterally from L4 to L5. Attention was then brought to the facet on the ipsilateral side. The facet was taken down. The L5 nerve was decompressed as it passed around the L5 pedicle. The laminectomy was done for purposes of decompressing the nerve as well as placement of the cage. The L4 nerve was identified as it traversed through the L4/5 foramen. The facets were taken down bilaterally in order to facilitate opening up with the disc space. the thecal sac was identified and retracted. The L4/5 disc space was identified. Using a knife the disc base was opened. And then sequential julio césar were placed. The first shaver was a 6 and the last shaver was a 7. Using a pituitary and down going curette the endplates were scraped and disc material was removed from the space. Once adequate decompression of the disc base was felt to be had. Osteoamp sponge was packed into the anterior aspect of the disc base. Then a size 7 cage from [employer] was placed after packing osteoamp into the cage. While placing the cage the thecal sac and L5 nerve was protected. C arm was used to ensure that the cages placed in the appropriate position. Attention was then brought to attaching the rods to the screws placed in the L4 bilaterally and L5 bilaterally. Caps were torqued into position. Locking the construct in place. Wound was copiously irrigated and then attention was brought to decorticating the facets and transverse processes laterally. Bone that was taken down from the lamina was used along with osteoamp fibers and sponges were packed into the lateral gutters along the facet joints. This was done bilaterally. Wound was then closed in a layered fashion starting with the thoracolumbar fascia. 0-vicryl was used the sub cutaneous tissue was closed with 2-0 vicryl and skin with 4-0 monocryl. Steri-Strips were then applied. Sterile Silverlon dressing was placed. patient was then placed in the supine position. The endotracheal tube was removed and patient was transferred to the PACU in stable condition.
[2024-12-24] MEDS: HYDROcodone-acetaminophen 5-325 mg Tablet PO ×3 (10:35→21:32)
--- NOTE | 2024-12-24 10:40 | SUR.PHASEI ---
Called floor to give final report of VS, will move patient to floor
--- NOTE | 2024-12-24 10:42 | ANE.PACU2 ---
Inpatient post-anesthesia follow up: Airway intact: Yes Vital signs: Temperature 97.9 F Pulse Rate 80 Respiratory Rate 16 Blood Pressure 108/59 Pulse Oximetry 95 Oxygen Delivery Me thod Room Air Oxygen Flow Rate 8 Fraction of Inspir ed Oxygen Hydration adequate: Yes Nausea and vomiting: No Pain level: 1 Mental status: Baseline
[2024-12-24] MEDS: lactated ringers 1,000 ML 90 ML IV ×2 (10:55→21:48)
--- NOTE | 2024-12-24 11:48 | XR_ITS ---
WS: [id number] Exam: XR lumbar spine 2-3V* [id number] Date/Time of Exam: 12/24/2024 11:48 AM Reason For Exam: or pic , fusion Intraoperative AP and lateral images of the lower lumbar spine are submitted. Images depict posterior fusion of the L4 and 5 with intervening disc spacer. The fusion appears to be in satisfactory alignment.
[2024-12-24] MEDS: ketorolac 30 mg/mL INJ IVP ×2 (12:30→21:32)
[2024-12-24] MEDS: fluticasone nasal spray 16gm Btl 2 SPRAY INTRANASAL (17:13)
[2024-12-24] MEDS: docusate sodium 100 mg Capsule PO (17:13)
[2024-12-24] MEDS: HYDROmorphone 0.5 MG/0.5 ML INJ 0.25 MG IVP (21:32)
[2024-12-25 04:00] VITALS: BP 102/55; PULSE 73; RESP 16; TEMP 36.9; O2SAT 96
[2024-12-25] MEDS: HYDROcodone-acetaminophen 5-325 mg Tablet PO (05:04)
[2024-12-25] MEDS: ceFAZolin 2,000 mg SDV 2000 MG IVP (05:04)
[2024-12-25] MEDS: HYDROmorphone 0.5 MG/0.5 ML INJ 0.25 MG IVP (05:09)
[2024-12-25] MEDS: escitalopram 10 mg Tablet 20 MG PO (07:25)
[2024-12-25] MEDS: cetirizine 10 mg Tablet 5 MG PO (07:26)
[2024-12-25] MEDS: pramipexole 0.25 mg Tablet PO (07:26)
[2024-12-25] MEDS: docusate sodium 100 mg Capsule PO (07:26)
[2024-12-25] MEDS: nicotine 14 mg Patch 1 PATCH TRANSDERMA (07:27)
[2024-12-25] MEDS: fluticasone nasal spray 16gm Btl 2 SPRAY INTRANASAL (07:27)
[2024-12-25 08:00] VITALS: BP 108/59; PULSE 80; RESP 16; TEMP 36.6; O2SAT 95
--- NOTE | 2024-12-25 08:43 | PC.NURSE ---
Hemovac removed without incident, 2x2 secured with tegaderm.
[2024-12-25 08:56] VITALS: BP 108/59; PULSE 80; RESP 16; TEMP 36.6; O2SAT 95
--- NOTE | 2025-01-27 11:16 | P.DS_ITS ---
Discharge Providers Date of Admission: 12/24/24 10:23 Date of Discharge: January 25, 2025 Attending Provider at Admission: Felipe Up DO Attending Provider at Discharge: Felipe Up DO Primary Care Provider: Ramos Cruz MD Physical Exam Narrative: Pain control doing well Urinary Catheter Management: Castro: Cath Placed During This Visit: yes, but has since been removed by the nurse Reason for Continuing Indwelling Catheter: Decision to DC Catheter Urinary Catheter Date of Insertion: 12/24/24 Urinary Catheter Time of Insertion: 07:10 Date Urinary Catheter Removed: 12/24/24 Time Urinary Catheter Discontinued: 11:00 Discharge Data Studies Completed and Pending Completed Studies During Hospitalization Category Date Time Status XR lumbar spine 2-3V* [id number] Routine Exams 12/24/24 11:48 Completed Laboratory Results Urine HCG, Qual Negative (Negative) 12/24/24 06:01 Blood Type A Positive 12/24/24 06:10 Rho(D) Type Rh positive 12/24/24 06:10 Antibody Screen Negative 12/24/24 06:10 Vitals Last Vital Signs Temp 97.9 F 12/25/24 08:56 Pulse 80 12/25/24 08:56 Resp 16 12/25/24 08:56 BP 108/59 12/25/24 08:56 Pulse Ox 95 12/25/24 08:56 O2 Del Method Room Air 12/25/24 08:00 O2 Flow Rate 8 12/24/24 09:28 Discharge Plan Discharge Patient Disposition: Home Condition: Stable Prescriptions: Continued nicotine 14 mg/24 hr patch 24 hour 1 patch transdermal DAILY Qty: 28 1RF pramipexole 0.25 mg tablet 0.25 mg PO DAILY Qty: 60 1RF levocetirizine [Xyzal] 5 mg tablet 5 mg PO DAILY Qty: 90 1RF fluticasone propionate 50 mcg/actuation spray,suspension 2 spray intranasal BID Qty: 16 1RF Rx Instructions: administer into each nostril escitalopram oxalate 20 mg tablet 20 mg PO DAILY Qty: 90 1RF Held enoxaparin [Lovenox] 100 mg/mL syringe 100 mg SUBCUT Q12H Qty: 180 3RF Hold Instructions: Resume on 12/26/24. meloxicam 15 mg tablet 15 mg PO DAILY Qty: 90 1RF Hold Instructions: Resume on 12/26/24. No Action prednisone 20 mg tablet 40 mg PO DAILY 5 Days Qty: 10 0RF famotidine 40 mg tablet 40 mg PO DAILY Qty: 7 0RF hydroxyzine HCl 25 mg tablet 25 mg PO BID PRN (Reason: itching) Qty: 14 0RF (DME) tlso back brace See Rx Instructions .Route .MEDSUPPLY Qty: 1 0RF Rx Instructions: As directed. Order 99 days Discharge Orders: Discharge Order (Routine); Ordered 12/25/24 Ordered By: Felipe Up Referrals: Felipe Up, [Physician] - 01/06/25 8:15 am Discharge Diet: Advance as tolerated Discharge Activity: Limit activity as instructed Patient Instructions: Hydrocodone/Acetaminophen (By mouth), Acute Wound Care (DC), Lumbar Spinal Fusion (GEN), Post Anesthesia Care Activity Restrictions/Additional Instructions: Thank you for [facility] for your care! The following is a list of instructions, from your provider, to follow upon your discharge to ensure you have the optimal recovery from your recent injury orsurgery. Follow-up care is a [place] part of your treatment and safety. Be sure to make and go to all appointments, and call your doctor if you are having problems. If you do not already have a follow-up appointment made, call Dr. Up office in the next 1-3 days to make follow up appointment for 1 weeks at [phone]. It is also a good idea to know your test results and keep a list of the medicines you take. Medications will be prescribed for you at your provider's discretion. These med ications are to be used as instructed; if they are taken more often that prescribed they will not be refilled early and in most cases will not be refilled at all. > When a refill is needed,you should contact quan jorge 2-3 business days before your prescription runs out. Medications will NOT be refilled by electronic calibration technician providers after hours! > Many pain medications contain Tylenol (Acetaminophen). Do not consume more than 4,000 mg of Tylenol per day in total with any combination ofmedications. > Pain medications can cause constipation. Please use an over the counter stool softener as directed, while taking pain medications. Consulty our local pharmacist with questions or recommendations on stool softeners. If constipation persists, contact our office or your primary care provider. > While under our care,you are not to receive pain medications or other controlled substances from any other provider unless our office is notified and approves. Any attempts to do so will result in refusal to prescribe any further pain medications and possible dismissal from our practice. ? Keep dressing on for 1 week we will change it in the clinic ? Walking is essential for the healing process after surgery. We would like you to slowly advance your walking. This should be done on relatively flat clear ground (inside or out) or can be done on a treadmill. Remember this goal does not have to happen all at once, slowly increase your distance and duration. This can be broken into more more than one walk per day as tolerated. Patients who walk as directed after surgery rarely require Physical Therapy. In the unlikely event this issue arises your provider will direct hospital staff to make the appropriate arrangements. ? No lifting over 5 pounds {a gallon of milk) or bending/twisting until further notice. Each of these activities places an unnecessary amount of stress onto the body and can impede the delicate healing process. > Instead of bending at the waist, keep your back straight and bend at the knees. > Instead of twisting your torso, keep your back straight and turn your entire body with your feet. ? You may sleep in any position which makes you comfortable. Many patients find comfort sleeping in a reclining chair. It is not abnormal to have difficulty sleeping for the first several weeks following your surgery. We recommend trying Benadry! or Tylenol PM as directed to help with your sleeping difficulties. Both medications are over the counter and available withoutp rescription. ? NO SMOKING!!! Smoking dramatically increases the probability of developing postoperative wound infections. ? Common complaints after lumbar and/or thoracic spine surgery include, but are not limited to: numbness and/or tingling in the legs, pain around the incision and surrounding tissues, muscle spasms, or stiffness of the middle to low back. Contact our office if these symptoms persist or if an acute change occurs. ? No driving for the first 3-5days, and not while taking narcotics until seen at your follow-up appointment and cleared. There are no restrictions for riding on short trips, however if you take a longer trip, arrangements should be made to make regular stops to get out of the vehicle and stretch . ? Swelling is an unfortunate event that will take place with any surgery and is the primary source of your postoperative discomfort. While walking and regular approved activities helps control inflammation, there are additional steps you can take to minimizeswelling. > Place ice over the surgical site and surrounding tissue for twenty minutes, followed by applying a low/medium heat (heating pad) for an additional twenty minutes every 1-2 hours as needed for painrelief. > You may use of over the counter anti-inflammatory medications (Ibuprofen, Motrin, Aleve, Advil, etc) as directed on the package label. These types of medicines wm significantly reduce the amount of discomfort you experience after surgery from swelling. It should be noted that if you have and allergy to any of these medications, or a history of ulcers or kidney disease you should consult you primary care provider prior to starting these medications. Discharge Attestations Time Spent in Discharge Care*: less than 30 min Quality Metrics Clinical Quality Measures [ No reported AMI, CVA or VTE this stay] Coding Level of Care Code Acute Code for Chg Josephine
== END 2024-12-25 08:57 | disposition home or self-care (01) ==
LOC: MEDSURG 12-25 06:33
PROVIDERS: Student in an Organized Health Care Education/Training Program; Admitting Provider Orthopaedic Surgery; Family Provider Family Medicine; PCP Family Medicine; Visit Provider Orthopaedic Surgery
PROC: (CPT 22612; principal; 2024-12-24 07:00)
DX: M48.062 Spinal stenosis, lumbar region with neurogenic claudication (principal); F17.200 Nicotine dependence, unspecified, uncomplicated; G25.81 Restless legs syndrome; J45.909 Unspecified asthma, uncomplicated; I82.409 Acute embolism and thrombosis of unspecified deep veins of unspecified lower extremity; M47.9 Spondylosis, unspecified; D68.51 Activated protein C resistance; Z86.711 Personal history of pulmonary embolism
CPT/HCPCS: 22633; 22840; 22853; 63052; 20936; 20930; 20939; 61783; 51702; 72100; 76000; 81025; 86850; 86900; 97110; 97116; 97161; C1713; G0378; J0131; J0330; J0690; J1100; J1171; J1644; J1885; J2250; J2405; J2704; J2710; J3010; J3370; J3490; J7030; J7120; J9999

== ENCOUNTER → 2024-12-30 13:05 | Outpatient (BNVA) | payer MEDICAID, SELFPAY | PROVIDERS: Family Provider Family Medicine; PCP Family Medicine; Visit Provider Orthopaedic Surgery | DX: M54.9 Dorsalgia, unspecified (principal) | CPT/HCPCS: 72100 ==

== ENCOUNTER 2025-01-19 10:52 | Emergency (ER) | payer MEDICAID, SELFPAY ==
[2025-01-19 11:01] VITALS: BP 113/76; PULSE 97; TEMP 36.7; O2SAT 97; BMI 22.8
--- NOTE | 2025-01-19 11:41 | ED_ITS ---
HPI - Back Pain/Injury 2 General: Chief Complaint: General Medical Stated Complaint: discharge, swelling from incision, dr romero sent Time Seen by Provider: 01/19/25 11:21 Source: patient Mode of arrival: ambulatory Limitations: no limitations History of Present Illness: Patient is a 49-year-old female who presents to ED today with concerns of redness and drainage to her lumbar surgical incision. Patient underwent surgery by Dr. Romero on 12/24. Procedure performed listed below: Procedure done: 1. L4/5 Interbody fusion with posterola teral fusion 2. Instrumentation L4-L5 3. Interbody Cage at L4/5 4. L4-5 laminectomy with facetectomies 5. use of autograft from same incision 6. allograft 7. Bone marrow aspirate from right iliac crest 8. Use of computer navigation stereotac tic for spine Patient has since followed up with Dr. Romero twice since the surgery. Patient notes that 3 days ago she began to have some pain/tenderness near the surgical incision. She states that she then noticed some drainage and placed some gauze over the surgical site. She endorses occasional chills/night sweats however states she is going through the change (menopause) and states those symptoms are common. No fevers. Contacted Dr. Romero's office and he is out today so the staff advised her to present to the emergency department. No radicular pain into lower extremities. She arrives in NAD with normal vital signs. MD elicited complaint: other (surgical site redness/discharge) Pertinent past history: back surgery Onset (ago): day(s) Pain scale (0-10): 5 Similar Symptoms Previously: No Location: lumbar spine Radiation: none Exacerbating factors: none Relieving factors: none Context: other (recent surgery) Associated symptoms: Reports chills; Deny abdominal pain, difficulty walking, fever(s), nausea or vomiting Work related injury: No Related Data Previous Rx's ?Medication ?Instructions ?Recorded enoxaparin 100 mg/mL subcutaneous 100 mg SUBCUT Q12H # 180 mL 06/26/24 syringe (Lovenox) Held on 12/25/24. Instructions: Resume on 12/26/24. meloxicam 15 mg tablet 15 mg PO DAILY #90 tabs 11/2 Held on 12/25/24. Instructions: Resume on 12/26/24. escitalopram oxalate 20 mg tablet 20 mg PO DAILY #90 t abs 11/24/24 fluticasone propionate 50 2 spray intranasal BID #16 g vania 12/18/24 mcg/actuation nasal spray,suspension levocetirizine 5 mg tablet (Xyzal) 5 mg PO DAILY #90 t abs 12/18/24 nicotine 14 mg/24 hr daily 1 patch transdermal DAILY # 28 ea 12/18/24 transdermal patch pramipexole 0.25 mg tablet 0.25 mg PO DAILY #60 tabs 0 12/18/24 sulfamethoxazole 800 1 tab PO BID 7 days #14 tabs 01/19/25 mg-trimethoprim 160 mg tablet (Bactrim DS) Allergies Allergy/AdvReac Type Severity Reaction Status Date / Time apixaban (From Eliquis) Allergy ALGY-Hives Verified 01/19/25 11:06 gabapentin Allergy ALGY-Hives Verified 01/19/25 11:06 morphine Allergy ALGY-Hives Verified 01/19/25 11:06 trazodone AdvReac Intermediate ADR-Halluci Verified 01/19/25 11:06 nating Review of Systems 2 Const: Reports: chills and night sweats; Denies: fever(s) Card: Denies: chest pain, palpitations or edema Resp: Denies: dyspnea GI: Denies: abdominal pain, nausea or vomiting Musc: Reports: back pain; Denies: neck pain, extremity pain, extremity swelling, joint pain, joint swelling or joint redness Skin/Breast: Reports: erythema (Surgical incision on lower back); Denies: rash Neuro: Denies: headache(s), numbness in extremities, weakness in extremities, difficulty walking or dizziness PFSH ED 2 PFSH: Medical History Restless leg Moderate major depression 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 Local reaction to bee sting Allergic rhinitis due to allergen Asthma Tobacco dependency Cessation discussed DVT (deep venous thrombosis) Lovenox dose increased to discharge Factor 5 Leiden mutation, heterozygous Pulmonary emboli See above Surgical History H/O neck surgery (06/15/16) Cervical laminectomy/discectomy with anterior cervical fusion History of back surgery (11/26/17) L4/L5 hemilaminectomy with discectomy and foraminotomies History of cholecystectomy History of History of tubal ligation Family History Mother Cancer Cervical cancer Grandmother Cancer Maternal-bone Grandfather Cancer Maternal-lung Grandfather Cancer Paternal-lung Grandmother Cancer Paternal-lung Other Bleeding disorder Clotting disorder Lung disease Denies family history of Diabetes CAD (coronary artery disease) Dementia Hyperlipidemia Psychiatric illness Chronic kidney disease (CKD) Anesthesia complication Hypertension Stroke Social History Smoking and tobacco/nicotine status: current every day tobacco/nicotine user Alcohol intake: current Alcohol intake frequency: holidays/special occasions only Substance/Drug Use: never Lives independently: Yes Marital status: Single Number of children: 5 Current occupational status: unemployed Special sergio needs: No Agree to transfusion: Yes Physical Exam 2 Const: COMMON NORMALS: no acute distress, average body habitus, patient oriented x3, no limitations, healthy appearing, alert and well nourished Neck/C-Spine: COMMON NORMALS: no meningeal signs Resp: COMMON NORMALS: normal respiratory effort and clear to auscultation bilaterally AUSCULTATION: clear to auscultation bilaterally Cardio: COMMON NORMALS: regular rate and regular rhythm RATE: regular rate RHYTHM: regular rhythm Back/Pelvis: COMMON NORMALS: thoracic and lumbar spine normal to inspection and straight leg raise negative bilaterally LUMBAR SPINE/LOWER BACK: Yes other soft tissue findings (tenderness at superior surgical site) PELVIS: Yes buttocks normal SACROILIAC JOINTS: Yes SI joints normal SACRUM: no tenderness COCCYX: no tenderness BACK IMAGE (FEMALE): 1. post op lumbar surgical incision; there is a very small amount of surrounding erythema to superior portion with localized tenderness; scant amount of discharge present-culture attempted no diffuse cellulitic changes; no odor Extremity: GENERAL: Yes normal exam except as noted Neuro: COMMON NORMALS: patient oriented x3, moves all extremities, no focal motor deficits, no sensory deficits noted and gait normal S ENSORIUM/ORIENTATION: Yes alert MENINGEAL SIGNS: Yes no meningeal signs Skin: NARRATIVE SKIN EXAM: see above Course 2 Consultations: Consultation #1: Dr. Romero-reviewed pictures of incision, did not want labs/imaging at this time, recommended placing her on Bactrim and will see in office tomorrow Vital Signs: Vital signs: Vital Signs Temperature 98.0 F 01/19/25 11:01 Pulse Rate 97 01/19/25 11:01 Blood Pressure 113/76 01/19/25 11:01 Pulse Oximetry 97 01/19/25 11:01 Oxygen Delivery Me thod Room Air 01/19/25 11:01 MDM - Back Pain/Injury Medical Decision Making Patient is a very nice 49-year-old female here for concerns of some mild redness and discharge involving her postop lumbar surgical incision. Surgery date 12/[address] Romero. She arrives in no acute distress with stable vital signs. Discussed case and images with her surgeon, Dr. Romero, who is recommending placing her on Bactrim and he will see her in his office tomorrow. He did not request any imaging or labs at this time. She states she will walk to the orthopedic clinic following her ED discharge to obtain specific time for appointment as we have tried to contact the clinic without success. Medical Records I reviewed the patient's medical records. No radiology studies performed this visit Discharge Plan Discharge Patient Disposition: Home Clinical Impression: Post-operative infection Qualifiers: Encounter type: initial encounter Postoperative infection type: superficial incisional surgical site Qualified Code(s): T81.41XA - Infection following a procedure, superficial incisional surgical site, initial encounter Condition: Stable Prescriptions: New sulfamethoxazole-trimethoprim [Bactrim DS] 800-160 mg tablet 1 tab PO BID 7 Days Qty: 14 0RF No Action enoxaparin [Lovenox] 100 mg/mL syringe 100 mg SUBCUT Q12H Qty: 180 3RF nicotine 14 mg/24 hr patch 24 hour 1 patch transdermal DAILY Qty: 28 1RF pramipexole 0.25 mg tablet 0.25 mg PO DAILY Qty: 60 1RF levocetirizine [Xyzal] 5 mg tablet 5 mg PO DAILY Qty: 90 1RF fluticasone propionate 50 mcg/actuation spray,suspension 2 spray intranasal BID Qty: 16 1RF Rx Instructions: administer into each nostril meloxicam 15 mg tablet 15 mg PO DAILY Qty: 90 1RF escitalopram oxalate 20 mg tablet 20 mg PO DAILY Qty: 90 1RF Discharge Orders: Discharge ED (Routine); Ordered 01/19/25 Ordered By: Eneida Hong Referrals: Ramos Cruz MD [Primary Care Provider] - Activity Restrictions/Additional Instructions: As we discussed, please fill your antibiotics and start them immediately. You may keep wound clean with warm soap and water. Dr. Romero would like to see you in his office tomorrow for evaluation. Please contact their office upon discharge so they may give you a specific time for this appointment. Print Language: Kinyarwanda Coding Level of Care Code ED Bookkeeping Service Sales Agent for Renetta Burton
[2025-01-19 12:13] VITALS: BP 104/74; PULSE 92; O2SAT 96
== END 2025-01-19 12:14 | disposition home or self-care (01) ==
PROVIDERS: Emergency Provider Physician Assistant; PCP Family Medicine
DX: T81.41XA Infection following a procedure, superficial incisional surgical site, initial encounter (principal); Z72.0 Tobacco use; X58.XXXA Exposure to other specified factors, initial encounter
CPT/HCPCS: 87070; 87075; 87077; 87186; 87205; 99283

== ENCOUNTER → 2025-02-03 08:04 | Outpatient (BNVA) | payer MEDICAID, SELFPAY | PROVIDERS: PCP Family Medicine; Visit Provider Orthopaedic Surgery | DX: Z98.1 Arthrodesis status (principal) | CPT/HCPCS: 72100 ==

== ENCOUNTER 2025-03-24 07:45 | Oncology outpatient (recurring) (ONCR) | payer MEDICAID, SELFPAY ==
[2025-03-17 13:33] LABS: Basophils % 0.5 %; Eosinophils # 0.2 10^3/uL (0.0-0.8); Eosinophils % 3.2 %; Hematocrit 33.9 % (36-47); Lymphocytes % 30.4 %; Mean Corpuscular HGB Conc 33.3 g/dL (30-55); Mean Corpuscular Hemoglobin 30.3 pg (27-33); Mean Corpuscular Volume 90.9 fl (85-98); Mean Platelet Volume 8.7 fL (7.4-10.4); Monocytes # 0.3 10^3/uL (0.2-0.9); Monocytes % 5.1 %; Neutrophils # 4.04 10^3/uL (1.8-7.7); Neutrophils % 60.6 %; Nucleated Red Blood Cells % 0 %; Platelet Count 336 10^3/cmm (157-399); Red Blood Count 3.73 10^6/uL (3.85-5.65); Red Cell Distribution Width 15.9 % (12.1-15.1); White Blood Count 6.65 10^3/uL (3.29-11.43)
[2025-03-17 13:58] LABS: Alanine Aminotransferase 12 U/L (0-33); Albumin Level 4.4 g/dL (3.5-5.2); Alkaline Phosphatase 71 U/L (35-105); Anion Gap 15.9 (5-19); Aspartate Amino Transferase 13 U/L (0-32); Blood Urea Nitrogen 11 mg/dL (6-20); Carbon Dioxide 21 mmol/L (22-29); Chloride 104 mmol/L (98-107); Ferritin 37 ng/mL (15-150); Globulin 2.8 g/dL (1.3-4.6); Glomerular Filtration Rate 75.9 mL/min (90-130); Glucose 156 mg/dL (65-115); Iron 56 ug/dL (37-145); Osmolality Calculated 287 mOsm/kg (285-295); Percent Saturation 14.6 % (20-50); Potassium 3.9 mmol/L (3.5-5.1); Sodium 137 mmol/L (136-145); Total Bilirubin 0.2 mg/dL (0.15-1.2); Total Iron Binding Capacity 381 mcg/dl; Total Protein 7.2 g/dL (6.6-8.7); Unsaturated Iron Binding 325 ug/dL (112-347)
[2025-03-17 14:14] LABS: Vitamin B12 320 pg/mL (232-1245)
[2025-03-17 14:47] LABS: Folate Level 19.8 ng/mL (4.8-37.3)
--- NOTE | 2025-03-24 07:45 | US_ITS ---
WS: [id number] RIGHT UPPER QUADRANT ULTRASOUND HISTORY: diastasis recti, hernia COMPARISON: None available. Liver: 14.0 cm in length. Normal size liver and echogenicity. No bile duct dilatation or mass. Portal Vein: Normal hepatopetal flow with monophasic waveform. Gallbladder: Prior cholecystectomy. CBD: 0.5 cm Pancreas: Normal size and echogenicity. Right kidney: 10.5 cm in length. Normal size and echogenicity. No hydronephrosis or mass. Aorta and IVC: Unremarkable abdominal aorta and IVC. No ascites. US/US abdomen limited [id number] IMPRESSION: 1. Prior cholecystectomy. 2. Otherwise normal RIGHT upper quadrant ultrasound.
== END 2025-03-30 23:59 | disposition home or self-care (01) ==
LOC: RAD 03-25 → ONCMED 03-25 09:34
PROVIDERS: Nurse Practitioner Family; PCP Family Medicine; Visit Provider Family Medicine
DX: M62.08 Separation of muscle (nontraumatic), other site (principal); Z90.49 Acquired absence of other specified parts of digestive tract; Z53.9 Procedure and treatment not carried out, unspecified reason
CPT/HCPCS: 36415; 72100; 76705; 80053; 82607; 82672; 82728; 82746; 83001; 83002; 83540; 83550; 84144; 84146; 85025

== ENCOUNTER 2025-04-28 11:00 | Oncology outpatient (recurring) (ONCR) | payer MEDICAID, SELFPAY ==
[2025-04-28 11:15] LABS: Hematocrit 38.4 % (36-47); Hemoglobin 12.80 g/dL (11.27-16.99); Mean Corpuscular HGB Conc 33.3 g/dL (30-55); Mean Corpuscular Hemoglobin 30.5 pg (27-33); Mean Corpuscular Volume 91.4 fl (85-98); Nucleated Red Blood Cells % 0 %; Platelet Count 361 10^3/cmm (157-399); Red Blood Count 4.20 10^6/uL (3.85-5.65); White Blood Count 7.90 10^3/uL (3.29-11.43)
[2025-04-28 11:32] LABS: Alanine Aminotransferase 10 U/L (0-33); Albumin Level 4.3 g/dL (3.5-5.2); Alkaline Phosphatase 118 U/L (35-105); Anion Gap 19.3 (5-19); Aspartate Amino Transferase 14 U/L (0-32); Blood Urea Nitrogen 8 mg/dL (6-20); Calcium 9.2 mg/dL (8.5-10.5); Carbon Dioxide 19 mmol/L (22-29); Chloride 103 mmol/L (98-107); Ferritin 29 ng/mL (15-150); Globulin 3.2 g/dL (1.3-4.6); Glucose 102 mg/dL (65-115); Iron 46 ug/dL (37-145); Osmolality Calculated 283 mOsm/kg (285-295); Potassium 4.3 mmol/L (3.5-5.1); Sodium 137 mmol/L (136-145); Total Iron Binding Capacity 303 mcg/dl; Total Protein 7.5 g/dL (6.6-8.7); Unsaturated Iron Binding 257 ug/dL (112-347)
--- NOTE | 2025-04-28 12:58 | XRR_ITS ---
PROCEDURE INFORMATION: Exam: XR Chest Exam date and time: 04/28/2025 1:03 PM Age: 49 years old Clinical indication: Cough and wheezing; Checking for blood clots. Cough x 2 weeks. ; Additional info: Wheezing and cough TECHNIQUE: Imaging protocol: Radiologic exam of the chest. Views: 2 views. COMPARISON: CT angio chest PE protcl [id number] 07/20/2024 11:16 PM FINDINGS: Lungs: Small calcified granuloma lower right lung, unchanged with prior exam. Mild linear type opacity is seen mid to lower left lung that is new from prior exam. No consolidation. Pleural spaces: No pleural effusion or pneumothorax. Heart/Mediastinum: Unremarkable. No cardiomegaly. Bones/joints: Visualized osseous structures show no acute abnormality. Cervical fusion hardware lower cervical spine. Intraperitoneal space: Surgical clips right upper quadrant suggest previous cholecystectomy. XR/XR chest 2V* [id number] IMPRESSION: Mild linear type opacity within the lateral aspect of the mid to lower left lung. This could represent subsegmental atelectasis though also consider small developing infiltrate. No consolidation or effusion.
== END 2025-04-30 23:59 | disposition home or self-care (01) ==
PROVIDERS: Nurse Practitioner Family; PCP Family Medicine; Visit Provider Family Medicine
DX: R05.9 Cough, unspecified (principal); E61.1 Iron deficiency; R91.8 Other nonspecific abnormal finding of lung field; J84.10 Pulmonary fibrosis, unspecified; Z98.1 Arthrodesis status
CPT/HCPCS: 36415; 71046; 80053; 82728; 83540; 83550; 85025

== ENCOUNTER 2025-04-30 01:06 | Emergency (ER) | payer MEDICAID, SELFPAY ==
[2025-04-30] VITALS (7 sets, daily range): BP systolic 101–113; BP diastolic 58–87; PULSE 93–103; RESP 18–26; TEMP 36.4; O2SAT 88–96; BMI 24.8
--- NOTE | 2025-04-30 01:19 | ECG_ITS ---
QM Power Test Date: 2025-04-30 Pat Name: Neyda Ivy Department: Room: Gender: Female Nozzleman: : 1975 Requested By: Yanci Bautista Order Number: [id number] Jeffrey MD: TAMMY BYERS Measurements Intervals [place] Rate: 106 P: 69 MA: 164 QRS: 57 QRSD: 75 T: 45 QT: 332 QTc: 441 Interpretive Statements SINUS TACHYCARDIA ANTEROSEPTAL MYOCARDIAL INFARCTION , OF INDETERMINATE AGE [40+ ms Q WAVE IN V1-V4] Compared to ECG 07/20/2024 21:57:51 No significant changes Electronically Signed On 04-30-2025 22:20:20 CDT by TAMMY BYERS [email or web address]
--- NOTE | 2025-04-30 01:27 | CTR_ITS ---
PROCEDURE INFORMATION: Exam: CTA Chest With Contrast Exam date and time: 04/30/2025 2:30 AM Age: 49 years old Clinical indication: Dyspnea; Additional info: Chest pain, factor v leiden. TECHNIQUE: Imaging protocol: Computed tomographic angiography of the chest with contrast. Exam focused on the arteries. 3D rendering (Not supervised by radiologist): MIP and/or 3D reconstructed images were created by the technologist. Radiation optimization: All CT scans at this facility use at least one of these dose optimization techniques: automated exposure control; mA and/or kV adjustment per patient size (includes targeted exams where dose is matched to clinical indication); or iterative reconstruction. Contrast material: OMNI 350; Contrast volume: 75 ml; Contrast route: INTRAVENOUS (IV); COMPARISON: CT angio chest PE protcl [id number] 07/20/2024 11:16 PM RADIATION DOSE METRICS: Total DLP (mGy-cm): 278.01 FINDINGS: Pulmonary arteries: Normal. No pulmonary emboli. Aorta: Unremarkable. No aortic aneurysm. No aortic dissection. Lungs: Atelectasis versus pneumonia infiltrates at the anterior lung bases. There is a subpleural calcified granuloma in the right mid lung. Pleural spaces: Unremarkable. No pneumothorax. No pleural effusion. Heart: The heart is at the upper limit of normal. No pericardial effusion or coronary artery calcification. Esophagus: There is mild thickening of the distal esophagus suspicious for esophagitis, varices or possible infiltrating tumor. Lymph nodes: Unremarkable. No enlarged lymph nodes. Gallbladder and biliary ducts: The patient has had a cholecystectomy. Bones/joints: There has been fusion of the lower cervical spine. Soft tissues: Unremarkable. CT/CT angio chest PE protcl [id number] IMPRESSION: Atelectasis or pneumonia infiltrates in the anterior lung bases. Possible esophagitis, varices or infiltrating tumor. Endoscopy may be helpful in further evaluating this. Other surgical changes as described above. Correlate with the patient's clinical history.
--- NOTE | 2025-04-30 01:29 | ED_ITS ---
HPI - SOB/Dyspnea 2 General: Chief Complaint: Shortness of Breath/Dyspnea Stated Complaint: SOB, Cough Time Seen by Provider: 04/30/25 01:21 History of Present Illness: HPI Narrative: 49-year-old female with a history of res tless leg syndrome, depression, asthma, factor V Leyden, DVT and PE with chronic anticoagulation on Lovenox who presents emergency room shortness of breath. She says she think she is having an asthma attack and she might have a new pulmonary embolism. She says despite being anticoagulated she has had recurrent pulmonary emboli. No fevers. She has had some cough. No altered mental status. She has not missed any of her anticoagulation doses. Related Data Previous Rx's ?Medication ?Instructions ?Recorded meloxicam 15 mg tablet 15 mg PO DAILY #90 tabs 08/02 Held on 12/25/24. Instructions: Resume on 12/26/24. escitalopram oxalate 20 mg tablet 20 mg PO DAILY #90 t abs 11/24/24 levocetirizine 5 mg tablet (Xyzal) 5 mg PO DAILY #90 t abs 12/18/24 nicotine 14 mg/24 hr daily 1 patch transdermal DAILY # 28 ea 12/18/24 transdermal patch tlso back brace #1 ea 01/20/25 famotidine 40 mg tablet 40 mg PO DAILY #7 tabs 01/26 hydroxyzine HCl 25 mg tablet 25 mg PO BID PRN itching #14 tabs 01/26/25 TLSO Brace #1 ea 01/29/25 TLSO Brace #1 ea 02/03/25 enoxaparin 100 mg/mL subcutaneous 100 mg SUBCUT Q12H # 180 mL 03/03/25 syringe (Lovenox) ferrous gluconate 324 mg (37.5 mg 324 mg PO DAILY #30 tabs 03/18/25 iron) tablet pramipexole 0.25 mg tablet 0.25 mg PO DAILY #60 tabs 0 04/06/25 fluticasone propionate 50 2 spray intranasal BID #16 g vania 04/14/25 mcg/actuation nasal spray,suspension amoxicillin 875 mg-potassium 1 tab PO BID 7 days #14 t abs 04/21/25 clavulanate 125 mg tablet albuterol sulfate 90 mcg/actuation 2 inh inhalation Q4 H PRN shortness 04/28/25 aerosol inhaler (Ventolin HFA) of breath or wheezing # 8.5 grams benzonatate 200 mg capsule 200 mg PO TID PRN cough #30 caps 04/30/25 doxycycline monohydrate 100 mg 100 mg PO BID 10 days # 20 caps 04/30/25 capsule prednisone 20 mg tablet 60 mg (3 x 20 mg) PO DAILY # 20 tabs 04/30/25 Allergies Allergy/AdvReac Type Severity Reaction Status Date / Time apixaban (From Eliquis) Allergy ALGY-Hives Verified 04/28/25 11:51 gabapentin Allergy ALGY-Hives Verified 04/28/25 11:51 morphine Allergy ALGY-Hives Verified 04/28/25 11:51 trazodone AdvReac Intermediate ADR-Halluci Verified 04/28/25 11:51 nating Review of Systems 2 Narrative: Constitutional symptoms: Negative except as documented in HPI. Skin symptoms: Negative except as documented in HPI. Eye symptoms: Negative except as documented in HPI. ENMT symptoms: Negative except as documented in HPI. Respiratory symptoms: Negative except as documented in HPI. Cardiovascular symptoms: Negative except as documented in HPI. Gastrointestinal symptoms: Negative except as documented in HPI. Genitourinary symptoms: Negative except as documented in HPI. Musculoskeletal symptoms: Negative except as documented in HPI. Neurologic symptoms: Negative except as documented in HPI. Psychiatric symptoms: Negative except as documented in HPI. Endocrine symptoms: Negative except as documented in HPI. 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 Local reaction to bee sting Allergic rhinitis due to allergen Asthma Tobacco dependency Cessation discussed DVT (deep venous thrombosis) Lovenox dose increased to discharge Factor 5 Leiden mutation, heterozygous Pulmonary emboli See above Surgical History H/O neck surgery (06/15/16) Cervical laminectomy/discectomy with anterior cervical fusion History of back surgery (11/26/17) L4/L5 hemilaminectomy with discectomy and foraminotomies History of cholecystectomy History of History of tubal ligation Family History Mother Cancer Cervical cancer Grandmother Cancer Maternal-bone Grandfather Cancer Maternal-lung Grandfather Cancer Paternal-lung Grandmother Cancer Paternal-lung Other Bleeding disorder Clotting disorder Lung disease Denies family history of Diabetes CAD (coronary artery disease) Dementia Hyperlipidemia Psychiatric illness Chronic kidney disease (CKD) Anesthesia complication Hypertension Stroke Social History Smoking and tobacco/nicotine status: current some day tobacco/nicotine user Alcohol intake: current Alcohol intake frequency: holidays/special occasions only Substance/Drug Use: never Lives independently: Yes Marital status: Single Number of children: 5 Current occupational status: unemployed Special sergio needs: No Agree to transfusion: Yes Physical Exam 2 Narrative: EXAM NARRATIVE: General: Alert, no acute distress. Skin: Warm, dry. Head: Normocephalic, atraumatic. Neck: Supple, trachea midline. Eye: Extraocular movements are intact. Ears, nose, mouth and throat: Oral mucosa moist. Cardiovascular: Regular rate and rhythm, Normal peripheral perfusion. Respiratory: coarse, scattered wheeze, mild increased wob. tachypnea, breath sounds are equal, Symmetrical chest wall expansion. Gastrointestinal: Soft, Nontender, Non distended Musculoskeletal: Normal ROM, no deformity. Neurological: Alert and oriented, No focal neurological deficit observed. Psychiatric: Cooperative, appropriate mood & affect. Course 2 Vital Signs: Vital signs: Vital Signs Temperature 97.6 F 04/30/25 01:08 Pulse Rate 95 04/30/25 01:57 Respiratory Rate 18 04/30/25 01:57 Blood Pressure 113/87 04/30/25 01:08 Pulse Oximetry 91 04/30/25 01:57 Oxygen Delivery Me thod Room Air 04/30/25 01:57 MDM - SOB/Dyspnea Medical Decision Making Differential diagnosis for patient with shortness of breath includes but is not limited to and based on the above HPI, review of systems and physical exam: Pneumonia. Bronchitis. Asthma or COPD with acute exacerbation. Acute coronary syndrome / TN. Pulmonary embolism. Anxiety. Congestive heart failure. Viral infections including influenza and Covid-19. Atrial fibrillation. Anxiety. Pleural effusion. Pneumothorax. Orders placed to evaluate differential diagnosis based on the above differential, HPI and physical exam EKG: Time 1:19 AM. Rate 106. Sinus tachycardia, No ST-T changes, no ectopy, normal NE & QRS intervals, This was reviewed and interpreted by myself the ER physician at 1:25 AM Lab Review: Laboratory results were reviewed and interpreted by myself the emergency room physician. No leukocytosis. No anemia. No renal failure. CTA chest with PE protocol: Atelectasis or pneumonia in the anterior lung bases. Possible esophagitis. Recommends endoscopy. Patient has been notified. This was reviewed and interpreted by myself the emergency room physician. I also reviewed the radiology report. I reviewed the patient's medical record. Reexamination: Patient remained stable. No longer in any increased work of breathing. No altered mental status. No focal motor deficits. Assessment and plan: COPD with acute exacerbation Possible pneumonia Chronic anticoagulation on Lovenox Factor V Leyden History of DVT and PE ?IV doxycycline, IV Solu-Medrol, 2 updrafts. - Discharged home - Discussed plan with patient. Answered any questions. - Evaluation and treatment of this problem were appropriate in the emergency setting. Lab Data 04/30/25 01:30 04/30/25 01:30 Labs/Radiology: Radiology Impressions Chest CTA 04/30/25 01:27 IMPRESSION: Atelectasis or pneumonia infiltrates in the anterior lung bases. Possible esophagitis, varices or infiltrating tumor. Endoscopy may be helpful in further evaluating this. Other surgical changes as described above. Correlate with the patient's clinical history. Laboratory Results WBC 8.38 10^3/uL (3.29-11.43) 04/30/25 01:30 RBC 3.75 10^6/uL (3.85-5.65) L 04/30/25 01:30 Hgb 11.30 g/dL (11.27-16.99) 04/30/25 01:30 Hct 33.3 % (36-47) L 04/30/25 01:30 MCV 88.8 fl (85-98) 04/30/25 01:30 MCH 30.1 pg (27-33) 04/30/25 01: MCHC 33.9 g/dL (30-55) 04/30/25 01:30 RDW 14.2 % (12.1-15.1) 04/30/25 01:30 Plt Count 318 10^3/cmm (157-399) 04/30/25 01:30 MPV 8.4 fL (7.4-10.4) 04/30/25 01:30 Neut % (Auto) 47.6 % 04/30/25 01:30 Lymph % (Auto) 39.3 % 04/30/25 01:30 [place] % (Auto) 6.4 % 04/30/25 01:30 Eos % (Auto) 5.5 % 04/30/25 01:30 Baso % (Auto) 0.8 % 04/30/25 01:30 Neut # (Auto) 3.99 10^3/uL (1.8-7.7) 04/30/25 01:30 Lymph # (Auto) 3.3 10^3/uL (0.8-4.8) 04/30/25 01:30 [place] # (Auto) 0.5 10^3/uL (0.2-0.9) 04/30/25 01:30 Eos # (Auto) 0.5 10^3/uL (0.0-0.8) 04/30/25 01:30 Baso # (Auto) 0.1 10^3/uL (0.0-0.1) 04/30/25 01:30 Nucleated RBC % (auto) 0 % 04/30/25 01:30 Nucleated RBCs # 0.0 /100WBC 04/30/25 01:30 Specimen Type Arterial 04/30/25 01:38 Sample Site Radial, left 04/30/25 01:38 ABG pH 7.38 (7.35-7.45) 04/30/25 01:38 ABG pCO2 35.8 mmHg (35-45) 04/30/25 01:38 ABG pO2 53.3 mmHg (80.0-100.0) L 04/30/25 01:38 ABG PO2/FiO2 Ratio 253 04/30/25 01:38 ABG HCO3 21.0 mmol/L (22-26) L 04/30/25 01:38 ABG O2 Saturation 88.8 04/30/25 01:38 ABG Base Excess -3.7 mmol/L (-2.0-2.0) L 04/30/25 01:38 Crow Test Pos 04/30/25 01:38 A-a O2 Gradient 6.8 mmHg (5-10) 04/30/25 01:38 Hematocrit 35.4 % (37-47) L 04/30/25 01:38 Hgb O2 Saturation 83.0 % (95-100) L 04/30/25 01:38 Carboxyhemoglobin 5.4 %THgb (0.4-20.1) 04/30/25 01:38 Methemoglobin 1.2 % (0.4-1.5) 04/30/25 01:38 Total Hemoglobin 11.5 g/dL (12-16) L 04/30/25 01:38 Sodium 133.0 mmol/L (131-143) 04/30/25 01:38 Potassium 3.2 mmol/L (3.5-5.0) L 04/30/25 01:38 Glucose 98.0 mg/dL (70-115) 04/30/25 01:38 Ionized Calcium 1.2 mmol/L (1.1-1.4) 04/30/25 01:38 O2 Delivery Device Room air 04/30/25 01:38 FiO2 21.0 % 04/30/25 01:38 Plow Mechanic ID gerca 04/30/25 01:38 Sodium 130 mmol/L (136-145) L 04/30/25 01:30 Potassium 3.6 mmol/L (3.5-5.1) 04/30/25 01:30 Chloride 94 mmol/L (98-107) L 04/30/25 01:30 Carbon Dioxide 19 mmol/L (22-29) L 04/30/25 01:30 Anion Gap 20.6 (5-19) H 04/30/25 01:30 BUN 7 mg/dL (6-20) 04/30/25 01:30 Creatinine 0.6 mg/dL (0.5-0.9) 04/30/25 01:30 GFR Calculation 105.8 mL/min (90-130) 04/30/25 01:30 Glucose 110 mg/dL (65-115) 04/30/25 01:30 Calculated Osmolality 269 mOsm/kg (285-295) L 04/30/25 01:30 Calcium 9.1 mg/dL (8.5-10.5) 04/30/25 01:30 Total Bilirubin 0.2 mg/dL (0.15-1.2) 04/30/25 01:30 AST 16 U/L (0-32) 04/30/25 01:30 ALT 11 U/L (0-33) 04/30/25 01:30 Alkaline Phosphatase 104 U/L (35-105) 04/30/25 01:30 Troponin T Baseline < 6 ng/L (0-10) 04/30/25 01:30 Troponin T 120 Minute < 6.0 ng/L (0-10) 04/30/25 02:52 Delta Troponin T 0 ABS# (0-10) 04/30/25 02:52 Total Protein 6.8 g/dL (6.6-8.7) 04/30/25 01:30 Albumin 4.2 g/dL (3.5-5.2) 04/30/25 01:30 Globulin 2.6 g/dL (1.3-4.6) 04/30/25 01:30 All radiology interpretation(s) finalized by discharge Discharge Plan Discharge Patient Disposition: Home Clinical Impression: Asthma with exacerbation, Community acquired pneumonia, Factor 5 Leiden mutation, heterozygous Condition: Stable Prescriptions: New benzonatate 200 mg capsule 200 mg PO TID PRN (Reason: cough) Qty: 30 0RF prednisone 20 mg tablet 60 mg PO DAILY Qty: 20 0RF Rx Instructions: 3 tabs (60 mg) x 3 days. 2 tabs (40 mg) x 3 days. 1 tab (20 mg) x 3 days. 1/2 tab (10 mg) x 4 days doxycycline monohydrate 100 mg capsule 100 mg PO BID 10 Days Qty: 20 0RF No Action nicotine 14 mg/24 hr patch 24 hour 1 patch transdermal DAILY Qty: 28 1RF levocetirizine [Xyzal] 5 mg tablet 5 mg PO DAILY Qty: 90 1RF ferrous gluconate 324 mg (37.5 mg iron) tablet 324 mg PO DAILY Qty: 30 2RF famotidine 40 mg tablet 40 mg PO DAILY Qty: 7 0RF hydroxyzine HCl 25 mg tablet 25 mg PO BID PRN (Reason: itching) Qty: 14 0RF meloxicam 15 mg tablet 15 mg PO DAILY Qty: 90 1RF escitalopram oxalate 20 mg tablet 20 mg PO DAILY Qty: 90 1RF (DME) TLSO Brace See Rx Instructions .Route .MEDSUPPLY Qty: 1 0RF Rx Instructions: As directed Code 99 (DME) tlso back brace See Rx Instructions .Route .MEDSUPPLY Qty: 1 0RF Rx Instructions: As directed. Order 99 days albuterol sulfate [Ventolin HFA] 90 mcg/actuation HFA aerosol inhaler 2 inh inhalation Q4H PRN (Reason: shortness of breath or wheezing) Qty: 8.5 0RF amoxicillin-pot clavulanate 875-125 mg tablet 1 tab PO BID 7 Days Qty: 14 0RF (DME) TLSO Brace See Rx Instructions .Route .MEDSUPPLY Qty: 1 0RF Rx Instructions: As directed enoxaparin [Lovenox] 100 mg/mL syringe 100 mg SUBCUT Q12H Qty: 180 3RF pramipexole 0.25 mg tablet 0.25 mg PO DAILY Qty: 60 1RF fluticasone propionate 50 mcg/actuation spray,suspension 2 spray intranasal BID Qty: 16 1RF Rx Instructions: administer into each nostril Discharge Orders: Discharge ED (Routine); Ordered 04/30/25 Ordered By: Yanci Ramírez Referrals: Ramos Cruz MD [Primary Care Provider, Family Practice] Discharge Diet: Usual diet Discharge Activity: Increase activity as tolerated Patient Instructions: Asthma Exacerbation - Adult, Opioid Safety, Pain Management, Patient Portal & Sharon Instructions Activity Restrictions/Additional Instructions: CT scan shows some concern for inflammation in your esophagus. You should follow-up with your primary to discuss endoscopy for this. Thank you for choosing [facility] for your healthcare needs today. You have been screened and evaluated and felt safe for discharge. Health conditions do change or evolve sometimes and as such it is important that you follow up with your Primary Doctor to be re checked, 3-5 days is a general good time frame for follow up. You are always welcome to return to the ED for re assessment if your symptoms are worsening or you have new concerns Print Language: Danish Coding Level of Care Code ED Specialist Field Engineer for Renetta Burton
[2025-04-30 01:33] LABS: Hematocrit 33.3 % (36-47); Hemoglobin 11.30 g/dL (11.27-16.99); Mean Corpuscular HGB Conc 33.9 g/dL (30-55); Mean Corpuscular Hemoglobin 30.1 pg (27-33); Mean Corpuscular Volume 88.8 fl (85-98); Nucleated Red Blood Cells % 0 %; Platelet Count 318 10^3/cmm (157-399); Red Blood Count 3.75 10^6/uL (3.85-5.65); White Blood Count 8.38 10^3/uL (3.29-11.43)
[2025-04-30] MEDS: methylPREDNISolone sod succ 125 mg/2 mL INJ IVP (01:36)
[2025-04-30 01:51] LABS: ABG PCO2 35.8 mmHg (35-45); ABG PH Result 7.38 (7.35-7.45); Alveolar-Arterial Oxygen Gradi 6.8 mmHg (5-10); Arterial Blood Gas Hematocrit 35.4 % (37-47); Blood Gas Allen Test Pos; Blood Gas Operator Identificat gerca; Blood Gas Sample Site Radial, left; Blood Gas Sample Type Arterial; Carboxyhemoglobin 5.4 %THgb (0.4-20.1); Glucose Level-ABG 98.0 mg/dL (70-115); HCO3 ABG 21.0 mmol/L (22-26); Ionized Calcium Level - ABG 1.2 mmol/L (1.1-1.4); Methemoglobin 1.2 % (0.4-1.5); Oxygen Saturation ABG 88.8; PO2 ABG 53.3 mmHg (80.0-100.0); PO2 FiO2 Ratio Arterial Blood 253; Potassium Level - ABG 3.2 mmol/L (3.5-5.0); Sodium Level - ABG 133.0 mmol/L (131-143)
[2025-04-30 01:53] LABS: Troponin(5th) Baseline < 6 ng/L (0-10)
[2025-04-30 01:55] LABS: Alanine Aminotransferase 11 U/L (0-33); Albumin Level 4.2 g/dL (3.5-5.2); Alkaline Phosphatase 104 U/L (35-105); Anion Gap 20.6 (5-19); Aspartate Amino Transferase 16 U/L (0-32); Blood Urea Nitrogen 7 mg/dL (6-20); Calcium 9.1 mg/dL (8.5-10.5); Carbon Dioxide 19 mmol/L (22-29); Chloride 94 mmol/L (98-107); Creatinine Clr Calc Pharmacy 96.9276; Globulin 2.6 g/dL (1.3-4.6); Glucose 110 mg/dL (65-115); Osmolality Calculated 269 mOsm/kg (285-295); Potassium 3.6 mmol/L (3.5-5.1); Sodium 130 mmol/L (136-145); Total Protein 6.8 g/dL (6.6-8.7)
[2025-04-30] MEDS: iohexol 350 mg/mL 500 mL Btl (per mL) IV (02:28)
[2025-04-30 03:21] LABS: Troponin 5 2HR < 6.0 ng/L (0-10); Troponin 5 2HR Delta 0 ABS# (0-10)
[2025-04-30] MEDS: LORazepam 1 MG/0.5 ML injection IVP (03:51)
[2025-04-30] MEDS: doxycycline 100 MG in sodium chloride 0.9% (plus) 100 ML IV (03:58)
== END 2025-04-30 05:18 | disposition home or self-care (01) ==
PROVIDERS: Emergency Provider Emergency Medicine; PCP Family Medicine
DX: J45.901 Unspecified asthma with (acute) exacerbation (principal); J18.9 Pneumonia, unspecified organism; D68.51 Activated protein C resistance; Z72.0 Tobacco use
CPT/HCPCS: 36415; 36600; 71275; 80051; 80053; 82330; 82805; 84484; 85025; 93005; 94640; 96374; 96375; 99285; J2060; J2919; J3490; J7613; J9999

== ENCOUNTER 2025-05-12 09:15 | Emergency (ER) | payer MEDICAID, SELFPAY ==
[2025-05-12 09:19] VITALS: BP 142/66; PULSE 93; RESP 16; TEMP 36.7; O2SAT 99; BMI 28.0
--- NOTE | 2025-05-12 09:38 | ED_ITS ---
HPI - Extremity Problem 2 General: Chief complaint: Extremity Problem,Nontraumatic Stated complaint: R arm pain, possible blood clot, congestion, sob Time Seen by Provider: 05/12/25 09:18 Source: patient Mode of arrival: ambulatory Limitations: no limitations History of Present Illness: Patient is a nice 49-year-old female with history of Factor V Leyden here for concerns of a blood clot to her right arm. Patient states she was seen here on 04/30 and did have an IV started to her right AC space that she believes started it . He has noticed ecchymosis and pain involving the volar aspect of her right forearm. Patient was seen on that previous visit for complaints of cough and shortness of breath. She did have CTA performed which was negative for PE. She was treated with pneumonia with doxycycline and steroids. She does not feel like she has improved. She is having bilateral rib pain from coughing and a continued nonproductive cough. She does have a history of asthma. No known history of COPD but does states she smokes daily. She has not noticed any episodes of hemoptysis. She is currently on Lovenox twice daily for anticoagulation. She has been on multiple other anticoagulation for PEs including Warfarin, Xarelto, Eliquis, Pradaxa. She states it has been several years since her last thromboembolus. MD Complaint: extremity pain Onset (ago): day(s) Pain Consistency: constant Location: right and upper extremity Radiation: none Relieving factors: nothing Exacerbating factors: nothing Associated symptoms: Reports chest pain (bilateral rib pain); Deny fever(s) or rash Context: other (recent IV, hx of hypercoagulability) Related Data Previous Rx's ?Medication ?Instructions ?Recorded meloxicam 15 mg tablet 15 mg PO DAILY #90 tabs 08/02 Held on 12/25/24. Instructions: Resume on 12/26/24. escitalopram oxalate 20 mg tablet 20 mg PO DAILY #90 t abs 11/24/24 levocetirizine 5 mg tablet (Xyzal) 5 mg PO DAILY #90 t abs 12/18/24 nicotine 14 mg/24 hr daily 1 patch transdermal DAILY # 28 ea 12/18/24 transdermal patch tlso back brace #1 ea 01/20/25 hydroxyzine HCl 25 mg tablet 25 mg PO BID PRN itching #14 tabs 01/26/25 TLSO Brace #1 ea 01/29/25 TLSO Brace #1 ea 02/03/25 enoxaparin 100 mg/mL subcutaneous 100 mg SUBCUT Q12H # 180 mL 03/03/25 syringe (Lovenox) ferrous gluconate 324 mg (37.5 mg 324 mg PO DAILY #30 tabs 03/18/25 iron) tablet pramipexole 0.25 mg tablet 0.25 mg PO DAILY #60 tabs 0 04/06/25 fluticasone propionate 50 2 spray intranasal BID #16 g vania 04/14/25 mcg/actuation nasal spray,suspension amoxicillin 875 mg-potassium 1 tab PO BID 7 days #14 t abs 04/21/25 clavulanate 125 mg tablet prednisone 20 mg tablet 60 mg (3 x 20 mg) PO DAILY # 20 tabs 04/30/25 albuterol sulfate 90 mcg/actuation 2 inh inhalation Q4 H PRN shortness 05/04/25 aerosol inhaler (Ventolin HFA) of breath or wheezing # 8.5 grams budesonide-formoterol HFA 80 2 puff inhalation BID #10 .2 grams 05/04/25 mcg-4.5 mcg/actuation aerosol inhaler (Symbicort) promethazine-DM 6.25 mg-15 mg/5 mL 5 ml PO Q6H #118 mL 05/04/25 oral syrup pantoprazole 40 mg tablet,delayed 40 mg PO BID 30 days #60 tabs 05/08/25 release ipratropium 0.5 mg-albuterol 3 mg 3 ml inhalation Q20M PRN shortness 05/12/25 (2.5 mg base)/3 mL nebulization of breath #90 mL soln Allergies Allergy/AdvReac Type Severity Reaction Status Date / Time apixaban (From Eliquis) Allergy ALGY-Hives Verified 05/12/25 09:22 gabapentin Allergy ALGY-Hives Verified 05/12/25 09:22 morphine Allergy ALGY-Hives Verified 05/12/25 09:22 trazodone AdvReac Intermediate ADR-Halluci Verified 05/12/25 09:22 nating Review of Systems 2 Const: Denies: fever(s), chills, body aches, fatigue or malaise Card: Reports: chest pain (bilateral rib pain) and dyspnea on exertion; Denies: palpitations, irregular heart rhythm, edema, swelling of feet/ankles, lightheadedness, syncope, pre-syncope, orthopnea, leg pain with exertion or acrocyanosis Resp: Reports: dyspnea, non-productive cough, wheezing, pain on inspiration and chest congestion; Denies: hemoptysis GI: Denies: abdominal pain, nausea, vomiting or diarrhea : Denies: flank pain, dysuria or hematuria Musc: Reports: extremity pain; Denies: neck pain, back pain, joint pain, joint swelling, joint redness, joint warmth or joint stiffness Skin/Breast: Denies: rash Neuro: Denies: headache(s), numbness in extremities, weakness in extremities or sensory changes PFSH ED 2 PFSH: Medical History Restless leg Moderate major depression 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 Local reaction to bee sting Allergic rhinitis due to allergen Asthma Tobacco dependency Cessation discussed DVT (deep venous thrombosis) Lovenox dose increased to discharge Factor 5 Leiden mutation, heterozygous Pulmonary emboli See above Surgical History H/O neck surgery (06/15/16) Cervical laminectomy/discectomy with anterior cervical fusion History of back surgery (11/26/17) L4/L5 hemilaminectomy with discectomy and foraminotomies History of cholecystectomy History of History of tubal ligation Family History Mother Cancer Cervical cancer Grandmother Cancer Maternal-bone Grandfather Cancer Maternal-lung Grandfather Cancer Paternal-lung Grandmother Cancer Paternal-lung Other Bleeding disorder Clotting disorder Lung disease Denies family history of Diabetes CAD (coronary artery disease) Dementia Hyperlipidemia Psychiatric illness Chronic kidney disease (CKD) Anesthesia complication Hypertension Stroke Social History Smoking and tobacco/nicotine status: current every day tobacco/nicotine user Alcohol intake: current Alcohol intake frequency: holidays/special occasions only Substance/Drug Use: never Lives independently: Yes Marital status: Single Number of children: 5 Current occupational status: unemployed Special sergio needs: No Agree to transfusion: Yes Physical Exam 2 Const: COMMON NORMALS: no acute distress, average body habitus, patient oriented x3, no limitations, healthy appearing, alert and well nourished G ENERAL APPEARANCE: cooperative ORIENTATION/CONSCIOUSNESS: Yes awake, Yes oriented to person, Yes oriented to place and Yes oriented to time HENMT: COMMON NORMALS: normocephalic and atraumatic HEAD & SCALP: normal to inspection, normocephalic and atraumatic FACE & SINUS: normal facial exam Eye: GENERAL EYE: appearance normal, both eyes and all related structures Chest: COMMONS NORMALS: normal inspection of the chest OTHER: TTP bilateral lower anterior chest wall/ribs Resp: COMMON NORMALS: normal respiratory effort and clear to auscultation bilaterally AUSCULTATION: clear to auscultation bilaterally Cardio: COMMON NORMALS: regular rate and regular rhythm RATE: regular rate RHYTHM: regular rhythm GI: COMMON NORMALS: Normal to inspection, nondistended, normoactive bowel sounds present, Soft to palpation and non-tender PALPATION: Yes Soft to palpation Back/Pelvis: COMMON NORMALS: thoracic and lumbar spine normal to inspection and no thoracic nor lumbar tenderness Extremity: COMMON NORMALS: full ROM and capillary refill normal GENERAL: Y es normal exam except as noted RIGHT UPPER EXTREMITY: Yes lower arm OTHER: ecchymosis and probable superficial thrombophlebitis right forearm Neuro: COMMON NORMALS: patient oriented x3, moves all extremities, no focal motor deficits and no sensory deficits noted SENSORIUM/ORIENTATION: Yes alert, Yes oriented to person, Yes oriented to place and Yes oriented to time Course 2 Vital Signs: Vital signs: Vital Signs Temperature 98.1 F 05/12/25 09:19 Pulse Rate 92 05/12/25 11:18 Respiratory Rate 16 05/12/25 11:18 Blood Pressure 106/74 05/12/25 11:18 Pulse Oximetry 93 05/12/25 11:18 Oxygen Delivery Me thod Room Air 05/12/25 11:15 MDM - Extremity (Nontraumatic) Medical Decision Making Patient is a nice 49-year-old female here for concerns of DVT to her right forearm. She was found to have superficial clot to her cephalic and basilic veins. No DVT appreciated on ultrasound imaging. Plan would be for her to continue her current anticoagulation of Lovenox twice daily. She did have some complaints of shortness of breath and nonproductive cough. She did have CTA imaging performed 12 days ago showing no evidence of PE. She is not tachycardic or hypoxic here. EKG with no evidence of right heart strain. I do not feel we need to repeat CTA imaging at this time as it would be unlikely to bladder changer. CXR stable. I feel dyspnea most likely related to known history of asthma and probable COPD as she continues to smoke daily. She does feel better after IV steroids and DuoNeb. She states she just completed a round of doxycycline and steroids. I do not feel we need additional antimicrobial therapy or additional steroid prescription. She was requesting nebulizer for home use so we will get her set up with this. Recommend follow-up with primary care later this week/early next week. Return to ED precautions discussed. Medical Records I reviewed the patient's medical records. Lab Data I reviewed the patient's lab results. 05/12/25 09:44 05/12/25 09:44 Radiology Impressions Chest X-Ray 05/12/25 10:06 IMPRESSION: Stable peripheral left lower lung zone atelectasis or scar. No acute process. Laboratory Results WBC 10.17 10^3/uL (3.29-11.43) 05/12/25 09:44 RBC 4.39 10^6/uL (3.85-5.65) 05/12/25 09:44 Hgb 13.00 g/dL (11.27-16.99) 05/12/25 09:44 Hct 40.1 % (36-47) 05/12/25 09:44 MCV 91.3 fl (85-98) 05/12/25 09:44 MCH 29.6 pg (27-33) 05/12/25 09:44 MCHC 32.4 g/dL (30-55) 05/12/25 09:44 RDW 14.7 % (12.1-15.1) 05/12/25 09:44 Plt Count 379 10^3/cmm (157-399) 05/12/25 09:44 MPV 8.9 fL (7.4-10.4) 05/12/25 09:44 Neut % (Auto) 65.7 % 05/12/25 09:44 Lymph % (Auto) 22.5 % 05/12/25 09:44 Ripley % (Auto) 7.8 % 05/12/25 09:44 Eos % (Auto) 3.0 % 05/12/25 09:44 Baso % (Auto) 0.4 % 05/12/25 09:44 Neut # (Auto) 6.68 10^3/uL (1.8-7.7) 05/12/25 09:44 Lymph # (Auto) 2.3 10^3/uL (0.8-4.8) 05/12/25 09:44 Ripley # (Auto) 0.8 10^3/uL (0.2-0.9) 05/12/25 09:44 Eos # (Auto) 0.3 10^3/uL (0.0-0.8) 05/12/25 09:44 Baso # (Auto) 0.0 10^3/uL (0.0-0.1) 05/12/25 09:44 Nucleated RBC % (auto) 0 % 05/12/25 09:44 Nucleated RBCs # 0.0 /100WBC 05/12/25 09:44 Sodium 135 mmol/L (136-145) L 05/12/25 09:44 Potassium 4.2 mmol/L (3.5-5.1) 05/12/25 09:44 Chloride 99 mmol/L (98-107) 05/12/25 09:44 Carbon Dioxide 24 mmol/L (22-29) 05/12/25 09:44 Anion Gap 16.2 (5-19) 05/12/25 09:44 BUN 10 mg/dL (6-20) 05/12/25 09:44 Creatinine 0.6 mg/dL (0.5-0.9) 05/12/25 09:44 GFR Calculation 105.8 mL/min (90-130) 05/12/25 09:44 Glucose 98 mg/dL (65-115) 05/12/25 09:44 Calculated Osmolality 279 mOsm/kg (285-295) L 05/12/25 09:44 Calcium 9.1 mg/dL (8.5-10.5) 05/12/25 09:44 Total Bilirubin 0.2 mg/dL (0.15-1.2) 05/12/25 09:44 AST 13 U/L (0-32) 05/12/25 09:44 ALT 16 U/L (0-33) 05/12/25 09:44 Alkaline Phosphatase 101 U/L (35-105) 05/12/25 09:44 Total Protein 7.2 g/dL (6.6-8.7) 05/12/25 09:44 Albumin 4.1 g/dL (3.5-5.2) 05/12/25 09:44 Globulin 3.1 g/dL (1.3-4.6) 05/12/25 09:44 Procalcitonin 0.04 ng/mL (0-0.5) 05/12/25 09:44 All radiology interpretation(s) finalized by discharge Discharge Plan Discharge Patient Disposition: Home Clinical Impression: Factor 5 Leiden mutation, heterozygous, Superficial thrombophlebitis of right upper extremity, Asthma with COPD with exacerbation Condition: Stable Prescriptions: New ipratropium-albuterol 0.5 mg-3 mg(2.5 mg base)/3 mL solution for nebulization 3 ml inhalation Q20M PRN (Reason: shortness of breath) Qty: 90 0RF Rx Instructions: for 3 doses No Action nicotine 14 mg/24 hr patch 24 hour 1 patch transdermal DAILY Qty: 28 1RF levocetirizine [Xyzal] 5 mg tablet 5 mg PO DAILY Qty: 90 1RF ferrous gluconate 324 mg (37.5 mg iron) tablet 324 mg PO DAILY Qty: 30 2RF hydroxyzine HCl 25 mg tablet 25 mg PO BID PRN (Reason: itching) Qty: 14 0RF promethazine-DM 6.25-15 mg/5 mL syrup 5 ml PO Q6H Qty: 118 0RF albuterol sulfate [Ventolin HFA] 90 mcg/actuation HFA aerosol inhaler 2 inh inhalation Q4H PRN (Reason: shortness of breath or wheezing) Qty: 8.5 0RF budesonide-formoterol [Symbicort] 80-4.5 mcg/actuation HFA aerosol inhaler 2 puff inhalation BID Qty: 10.2 0RF meloxicam 15 mg tablet 15 mg PO DAILY Qty: 90 1RF escitalopram oxalate 20 mg tablet 20 mg PO DAILY Qty: 90 1RF (DME) TLSO Brace See Rx Instructions .Route .MEDSUPPLY Qty: 1 0RF Rx Instructions: As directed Code 99 (DME) tlso back brace See Rx Instructions .Route .MEDSUPPLY Qty: 1 0RF Rx Instructions: As directed. Order 99 days amoxicillin-pot clavulanate 875-125 mg tablet 1 tab PO BID 7 Days Qty: 14 0RF pantoprazole 40 mg tablet,delayed release (DR/EC) 40 mg PO BID 30 Days Qty: 60 5RF (DME) TLSO Brace See Rx Instructions .Route .MEDSUPPLY Qty: 1 0RF Rx Instructions: As directed enoxaparin [Lovenox] 100 mg/mL syringe 100 mg SUBCUT Q12H Qty: 180 3RF pramipexole 0.25 mg tablet 0.25 mg PO DAILY Qty: 60 1RF fluticasone propionate 50 mcg/actuation spray,suspension 2 spray intranasal BID Qty: 16 1RF Rx Instructions: administer into each nostril prednisone 20 mg tablet 60 mg PO DAILY Qty: 20 0RF Rx Instructions: 3 tabs (60 mg) x 3 days. 2 tabs (40 mg) x 3 days. 1 tab (20 mg) x 3 days. 1/2 tab (10 mg) x 4 days Discharge Orders: Discharge ED (Routine); Ordered 05/12/25 Ordered By: Eneida Hong Other Ambulatory Orders: DME: Nebulizer with Neb Kit (Order) Location: None Selected Ordered By: Eneida Hong Referrals: Ramos Cruz MD [Primary Care Provider, [facility]] Patient Instructions: Superficial Thrombophlebitis (ED), Patient Portal & Sharon Instructions Activity Restrictions/Additional Instructions: As we discussed, ultrasound imaging did not show any evidence of DVT (deep blood clot) to your right arm. There was superficial thrombus. We discussed treatment for this. Please continue your Lovenox twice daily due to your Factor V Leyden disorder. Continue to follow-up with hematology as scheduled. Chest x-ray did not show any evidence of pneumonia. Will get you set up with a nebulizer and medications to help with asthma/COPD symptoms. I do not feel we need additional antibiotics at this time. You were given IV steroids here in the emergency department prior to discharge. We spoke about following up with primary care later this week/early next week for re-evaluation. Print Language: Cameroonian Coding Level of Care Code ED Inspector [employer] for Renetta Burton
--- NOTE | 2025-05-12 10:06 | USCV_ITS ---
Neyda Ivy Age: 49 Gender: F : 1975 Exam Date: 05/12/2025 10:36 Ordering Phys: Eneida Hong Technologist: YUNI [place]am [place] [facility] [place]ication: hx of dvt and clotting disorder. PROCEDURES: Venous duplex imaging was performed in only the right upper extremity. The following venous structures were evaluated: internal jugular vein, subclavian vein, axillary vein, and brachial veins. In addition, the basilic vein, cephalic vein, radial vein, and ulnar vein. FINDINGS: There is clot in the Baslic and Cephalic veins. The rest of the veins are normal CONCLUSIONS SVT in the basilic and cephalic veins Amish Higuera MD (Electronically Signed) Final Date: 12 May 2025 15:50 S
--- NOTE | 2025-05-12 10:06 | XRR_ITS ---
PROCEDURE INFORMATION: Exam: XR Chest Exam date and time: 05/12/2025 10:08 AM Age: 49 years old Clinical indication: Cough and shortness of breath; Additional info: SOB, cough TECHNIQUE: Imaging protocol: Radiologic exam of the chest. Views: 1 view. COMPARISON: 1. CT angio chest PE protcl [id number] 04/30/2025 2:30 AM 2. CR XR chest 2V* [id number] 04/28/2025 1:03 PM FINDINGS: Lungs: Stable peripheral atelectasis or scar in the left lower lung zone. No confluent consolidation. Pleural spaces: Unremarkable. No pleural effusion. No pneumothorax. Heart/Mediastinum: Unremarkable. No cardiomegaly. Bones/joints: Unremarkable. XR/XR chest 1V portable [id number] IMPRESSION: Stable peripheral left lower lung zone atelectasis or scar. No acute process.
[2025-05-12 10:13] LABS: Hematocrit 40.1 % (36-47); Hemoglobin 13.00 g/dL (11.27-16.99); Mean Corpuscular HGB Conc 32.4 g/dL (30-55); Mean Corpuscular Hemoglobin 29.6 pg (27-33); Mean Corpuscular Volume 91.3 fl (85-98); Nucleated Red Blood Cells % 0 %; Platelet Count 379 10^3/cmm (157-399); Red Blood Count 4.39 10^6/uL (3.85-5.65); White Blood Count 10.17 10^3/uL (3.29-11.43)
[2025-05-12 10:16] VITALS: PULSE 86; RESP 20; O2SAT 98
[2025-05-12 10:21] VITALS: PULSE 88
[2025-05-12 10:26] LABS: Alanine Aminotransferase 16 U/L (0-33); Albumin Level 4.1 g/dL (3.5-5.2); Alkaline Phosphatase 101 U/L (35-105); Anion Gap 16.2 (5-19); Aspartate Amino Transferase 13 U/L (0-32); Blood Urea Nitrogen 10 mg/dL (6-20); Calcium 9.1 mg/dL (8.5-10.5); Carbon Dioxide 24 mmol/L (22-29); Chloride 99 mmol/L (98-107); Creatinine Clr Calc Pharmacy 102.3896; Globulin 3.1 g/dL (1.3-4.6); Glucose 98 mg/dL (65-115); Osmolality Calculated 279 mOsm/kg (285-295); Potassium 4.2 mmol/L (3.5-5.1); Sodium 135 mmol/L (136-145); Total Protein 7.2 g/dL (6.6-8.7)
[2025-05-12] MEDS: methylPREDNISolone sod succ 125 mg/2 mL INJ IVP (10:31)
[2025-05-12 10:33] LABS: Procalcitonin 0.04 ng/mL (0-0.5)
--- NOTE | 2025-05-12 10:52 | ECG_ITS ---
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 Measurements Intervals [place] Rate: 91 P: 61 GA: 169 QRS: 39 QRSD: 80 T: 48 QT: 342 QTc: 421 Interpretive Statements SINUS RHYTHM LOW QRS VOLTAGE IN PRECORDIAL LEADS [QRS DEFLECTION < 1.0 mV IN CHEST LEADS] ANTEROSEPTAL MYOCARDIAL INFARCTION , OF INDETERMINATE AGE [40+ ms Q WAVE IN V1-V4] Compared to ECG 04/30/2025 01:19:20 Low QRS voltage now present Sinus tachycardia no longer present Myocardial infarct finding still present Electronically Signed On 05-13-2025 22:26:38 CDT by Varun Fernandez M.D. [email or web address]
[2025-05-12 11:15] VITALS: BP 106/74; PULSE 98; RESP 16; O2SAT 93
[2025-05-12 11:18] VITALS: BP 106/74; PULSE 92; RESP 16; O2SAT 93
== END 2025-05-12 11:30 | disposition home or self-care (01) ==
PROVIDERS: Emergency Provider Physician Assistant; PCP Family Medicine
DX: D68.51 Activated protein C resistance (principal); I82.611 Acute embolism and thrombosis of superficial veins of right upper extremity; J44.1 Chronic obstructive pulmonary disease with (acute) exacerbation; Z72.0 Tobacco use
CPT/HCPCS: 36415; 71045; 80053; 84145; 85025; 93005; 93971; 94640; 96374; 96375; 99285; J1885; J2919; J9999

== ENCOUNTER 2025-05-28 20:40 | Emergency (ER) | payer MEDICAID, SELFPAY ==
[2025-05-28 20:49] VITALS: BP 125/75; PULSE 97; RESP 16; TEMP 36.7; O2SAT 97; BMI 25.6
--- NOTE | 2025-05-28 21:00 | ECG_ITS ---
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 Measurements Intervals [place] Rate: 96 P: 64 [place]: 173 QRS: 60 QRSD: 80 T: 59 QT: 342 QTc: 434 Interpretive Statements SINUS RHYTHM LOW QRS VOLTAGE IN PRECORDIAL LEADS [QRS DEFLECTION < 1.0 mV IN CHEST LEADS] SEPTAL MYOCARDIAL INFARCTION , OF INDETERMINATE AGE [40+ ms Q WAVE IN V1/V2] Compared to ECG 05/12/2025 10:52:08 No significant changes Electronically Signed On 05-29-2025 22:52:17 CDT by Ritesh Haddad M.D. [id number]
== END 2025-05-28 22:41 | disposition left against medical advice (07) ==
PROVIDERS: Emergency Provider Family Medicine; PCP Family Medicine
DX: Z01.89 Encounter for other specified special examinations (principal); Z53.21 Procedure and treatment not carried out due to patient leaving prior to being seen by health care provider; I21.9 Acute myocardial infarction, unspecified; R94.31 Abnormal electrocardiogram [ECG] [EKG]
CPT/HCPCS: 93005

== ENCOUNTER 2025-05-31 01:19 | Emergency (ER) | payer MEDICAID, SELFPAY ==
[2025-05-31] VITALS (7 sets, daily range): BP systolic 98–114; BP diastolic 61–65; PULSE 97–122; RESP 18–24; TEMP 36.6; O2SAT 92–95
--- NOTE | 2025-05-31 01:28 | ECG_ITS ---
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 Measurements Intervals [place] Rate: 121 P: 73 [place]: 171 QRS: 76 QRSD: 81 T: 74 QT: 406 QTc: 577 Interpretive Statements SINUS TACHYCARDIA ANTEROSEPTAL MYOCARDIAL INFARCTION , OF INDETERMINATE AGE [40+ ms Q WAVE IN V1-V4] NONSPECIFIC ST -T WAVE ABNORMALITY Compared to ECG 05/28/2025 20:57:08 NO SIGNIFICANT CHANGE Electronically Signed On 06-01-2025 13:49:18 CDT by Varun Fernandez M.D. [email or web address] [id number]
--- NOTE | 2025-05-31 02:20 | CTR_ITS ---
PROCEDURE INFORMATION: Exam: CTA Chest With Contrast Exam date and time: 05/31/2025 2:35 AM Age: 49 years old Clinical indication: Cough and shortness of breath; Chest pressure; Chest pain with cough and SOB. History of pe. ; Additional info: Cp/sob TECHNIQUE: Imaging protocol: Computed tomographic angiography of the chest with contrast. Exam focused on the arteries. 3D rendering (Not supervised by radiologist): MIP and/or 3D reconstructed images were created by the technologist. Radiation optimization: All CT scans at this facility use at least one of these dose optimization techniques: automated exposure control; mA and/or kV adjustment per patient size (includes targeted exams where dose is matched to clinical indication); or iterative reconstruction. Contrast material: OMNI 350; Contrast volume: 56 ml; Contrast route: INTRAVENOUS (IV); COMPARISON: CT angio chest PE protcl [id number] 04/30/2025 2:30 AM RADIATION DOSE METRICS: Total DLP (mGy-cm): 297.25 FINDINGS: Pulmonary arteries: Evaluation for pulmonary embolus slightly limited by bolus timing. There are no definitive filling defects involving the pulmonary arteries. Aorta: Minimal calcific plaque involves the thoracic aorta and coronary arteries. No aneurysm or aortic dissection. Lungs: There are patchy ground-glass opacities throughout the lungs. Mild interlobular septal thickening present in the lung bases. The lungs are free of consolidation. Minimal bibasilar subsegmental atelectasis. Mucous secretions noted in the right lower lobe bronchi. Pleural spaces: Unremarkable. No pneumothorax. No pleural effusion. Heart: Unremarkable. No cardiomegaly. No pericardial effusion. Lymph nodes: Unremarkable. No enlarged lymph nodes. Bones/joints: No acute bony abnormality. Mild degenerative changes. Soft tissues: Unremarkable. CT/CT angio chest PE protcl [id number] IMPRESSION: 1. Negative exam for pulmonary embolus and aortic dissection. 2. Bilateral diffuse patchy ground-glass opacities likely reflecting pneumonitis. 3. Mild bibasilar interlobular septal thickening suggesting a component of mild interstitial edema.
--- NOTE | 2025-05-31 02:24 | W.ED.SOB ---
HPI - SOB/Dyspnea General: Chief Complaint: Shortness of Breath/Dyspnea Stated Complaint: SOB stated clots in lungs and 1 in left chest Time Seen by Provider: 05/31/25 01:48 History of Present Illness: HPI Narrative: 49-year-old female with factor V Leyden deficiency presenting with shortness of breath. She tells me she had pneumonia, treated 4 weeks ago with antibiotics and steroids. She states that she still coughing. She still short of breath. She has pain in left chest. 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 She is currently on Lovenox twice daily. She is concerned about the pain. She smiles and laughs on exam. She states she has been wheezing. She is using albuterol at home with minimal improvement. Related Data Previous Rx's ?Medication ?Instructions ?Recorded meloxicam 15 mg tablet 15 mg PO DAILY #90 tabs 08/20/24 Held on 12/25/24. Instructions: Resume on 12/26/24. escitalopram oxalate 20 mg tablet 20 mg PO DAILY #90 tabs 11/24/24 levocetirizine 5 mg tablet (Xyzal) 5 mg PO DAILY #90 tabs 12/18/24 nicotine 14 mg/24 hr daily 1 patch transdermal DAILY #28 ea 12/18/24 transdermal patch tlso back brace #1 ea 01/20/25 TLSO Brace #1 ea 01/29/25 TLSO Brace #1 ea 02/03/25 enoxaparin 100 mg/mL subcutaneous 100 mg SUBCUT Q12H #180 mL 03/03/25 syringe (Lovenox) fluticasone propionate 50 2 spray intranasal BID #16 grams 04/14/25 mcg/actuation nasal spray,suspension albuterol sulfate 90 mcg/actuation 2 inh inhalation Q4H PRN shortness 05/04/25 aerosol inhaler (Ventolin HFA) of breath or wheezing #8.5 grams budesonide-formoterol HFA 80 2 puff inhalation BID #10.2 grams 05/04/25 mcg-4.5 mcg/actuation aerosol inhaler (Symbicort) promethazine-DM 6.25 mg-15 mg/5 mL 5 ml PO Q6H #118 mL 05/04/25 oral syrup pantoprazole 40 mg tablet,delayed 40 mg PO BID 30 days #60 tabs 05/08/25 release codeine 10 mg-guaifenesin 100 mg/5 5 ml PO Q4H PRN cough #120 mL 05/31/25 mL oral liquid ipratropium 0.5 mg-albuterol 3 mg 3 ml inhalation Q20M PRN shortness 05/31/25 (2.5 mg base)/3 mL nebulization of breath #90 mL soln levofloxacin 750 mg tablet 750 mg PO DAILY 7 days #7 tabs 05/31/25 prednisone 10 mg tablet 10 mg PO DIRECTED #30 tabs 05/31/25 Allergies Allergy/AdvReac Type Severity Reaction Status Date / Time apixaban (From Eliquis) Allergy ALGY-Hives Verified 05/15/25 10:06 gabapentin Allergy ALGY-Hives Verified 05/15/25 10:06 morphine Allergy ALGY-Hives Verified 05/15/25 10:06 trazodone AdvReac Intermediate ADR-Halluci Verified 05/15/25 10:06 kylee Review of Systems Narrative: No vomiting. No swelling of the feet. She had fever 5 days ago, not since. No diarrhea. Positive for chest pain and shortness of breath. 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 Local reaction to bee sting Allergic rhinitis due to allergen Asthma Tobacco dependency Cessation discussed DVT (deep venous thrombosis) Lovenox dose increased to discharge Factor 5 Leiden mutation, heterozygous Pulmonary emboli See above Surgical History H/O neck surgery (06/15/16) Cervical laminectomy/discectomy with anterior cervical fusion History of back surgery (11/26/17) L4/L5 hemilaminectomy with discectomy and foraminotomies History of cholecystectomy History of History of tubal ligation Family History Mother Cancer Cervical cancer Grandmother Cancer Maternal-bone Grandfather Cancer Maternal-lung Grandfather Cancer Paternal-lung Grandmother Cancer Paternal-lung Other Bleeding disorder Clotting disorder Lung disease Denies family history of Diabetes CAD (coronary artery disease) Dementia Hyperlipidemia Psychiatric illness Chronic kidney disease (CKD) Anesthesia complication Hypertension Stroke Social History Smoking and tobacco/nicotine status: current every day tobacco/nicotine user Alcohol intake: current Alcohol intake frequency: holidays/special occasions only Substance/Drug Use: never Lives independently: Yes Marital status: Single Number of children: 5 Current occupational status: unemployed Special sergio needs: No Agree to transfusion: Yes Physical Exam Const: COMMON NORMALS: no acute distress GENERAL APPEARANCE: cooperative; not ill appearing and not frail appearing HENMT: COMMON NORMALS: normocephalic, atraumatic and Normal external nose present HEAD & SCALP: normocephalic and atraumatic FACE & SINUS: normal facial exam and face symmetric NOSE: Normal external nose present Eye: COMMON NORMALS: Equal, round and reactive pupils present and EOMs intact bilaterally PUPIL: Yes Equal, round and reactive pupils present Neck/C-Spine: GENERAL: Yes trachea midline Chest: CHEST: Yes Symmetrical chest wall rise Resp: COMMON NORMALS: normal respiratory effort, No retractions, No use of accessory muscles and clear to auscultation bilaterally AUSCULTATION: clear to auscultation bilaterally Cardio: COMMON NORMALS: regular rhythm RATE: tachycardic RHYTHM: regular rhythm GI: COMMON NORMALS: Normal to inspection, nondistended, normoactive bowel sounds present Extremity: COMMON NORMALS: no pedal edema Neuro: ANISA COMA SCALE: document GCS findings [place] coma scale eye opening: Spontaneous Anisa coma scale verbal response: Orientated [place] coma scale motor response: Obey commands Anisa coma scale total score: 15 SENSORY EXAM: Yes extremities (intact) Psych: COMMON NORMALS: speech normal SPEECH: Yes normal speech Skin: COMMON NORMALS: no rashes or lesions noted GENERAL SKIN EXAM: no rashes or lesions noted Course Vital Signs: Vital signs: Vital Signs Temperature 97.9 F 05/31/25 01:23 Pulse Rate 107 H 05/31/25 03:44 Respiratory Rate 18 05/31/25 02:53 Blood Pressure 114/61 05/31/25 03:44 Pulse Oximetry 95 05/31/25 03:44 Oxygen Delivery Me thod Room Air 05/31/25 03:44 MDM - SOB/Dyspnea Medical Decision Making Vitals are stable here. Oxygenation 92 to 95%. She is tachycardic, normotensive. She does not appear in any distress. Sodium is 133, bicarbonate is 17. CBC is normal. Troponin is nondetectable. BNP is 47. CTA is performed, shows no evidence of pulmonary embolus. There is bilateral diffuse patchy ground glass opacities likely reflecting pneumonitis. She has had a round of antibiotics, and short course of steroids. This was 4 weeks ago. I would elect for a long taper of steroids, different course of antibiotics. Continued inhaler use. Will ask case management to make a pulmonology referral. She is a smoker who continues to smoke. Lab Data 05/31/25 01:47 05/31/25 01:47 Labs/Radiology: Radiology Impressions Chest CTA 05/31/25 02:20 IMPRESSION: 1. Negative exam for pulmonary embolus and aortic dissection. 2. Bilateral diffuse patchy ground-glass opacities likely reflecting pneumonitis. 3. Mild bibasilar interlobular septal thickening suggesting a component of mild interstitial edema. Laboratory Results WBC 10.80 10^3/uL (3.29-11.43) 05/31/25 01:47 RBC 3.87 10^6/uL (3.85-5.65) 05/31/25 01:47 Hgb 11.80 g/dL (11.27-16.99) 05/31/25 01:47 Hct 35.3 % (36-47) L 05/31/25 01:47 MCV 91.2 fl (85-98) 05/31/25 01:47 MCH 30.5 pg (27-33) 05/31/25 01:47 MCHC 33.4 g/dL (30-55) 05/31/25 01:47 RDW 14.6 % (12.1-15.1) 05/31/25 01:47 Plt Count 341 10^3/cmm (157-399) 05/31/25 01:47 MPV 9.2 fL (7.4-10.4) 05/31/25 01:47 Neut % (Auto) 64.7 % 05/31/25 01:47 Lymph % (Auto) 24.8 % 05/31/25 01:47 [place] % (Auto) 6.9 % 05/31/25 01:47 Eos % (Auto) 2.9 % 05/31/25 01:47 Baso % (Auto) 0.3 % 05/31/25 01:47 Neut # (Auto) 7.00 10^3/uL (1.8-7.7) 05/31/25 01:47 Lymph # (Auto) 2.7 10^3/uL (0.8-4.8) 05/31/25 01:47 [place] # (Auto) 0.7 10^3/uL (0.2-0.9) 05/31/25 01:47 Eos # (Auto) 0.3 10^3/uL (0.0-0.8) 05/31/25 01:47 Baso # (Auto) 0.0 10^3/uL (0.0-0.1) 05/31/25 01:47 Nucleated RBC % (auto) 0 % 05/31/25 01:47 Nucleated RBCs # 0.0 /100WBC 05/31/25 01:47 Sodium 133 mmol/L (136-145) L 05/31/25 01:47 Potassium 3.7 mmol/L (3.5-5.1) 05/31/25 01:47 Chloride 97 mmol/L (98-107) L 05/31/25 01:47 Carbon Dioxide 17 mmol/L (22-29) L 05/31/25 01:47 Anion Gap 22.7 (5-19) H 05/31/25 01:47 BUN 4 mg/dL (6-20) L 05/31/25 01:47 Creatinine 0.5 mg/dL (0.5-0.9) 05/31/25 01:47 GFR Calculation 130.6 mL/min (90-130) H 05/31/25 01:47 Glucose 102 mg/dL (65-115) 05/31/25 01:47 Calculated Osmolality 273 mOsm/kg (285-295) L 05/31/25 01:47 Lactic Acid 2.9 mmol/L (0.5-2.2) H 05/31/25 01:47 Calcium 8.9 mg/dL (8.5-10.5) 05/31/25 01:47 Magnesium 1.7 mg/dL (1.7-2.3) 05/31/25 01:47 Total Bilirubin 0.2 mg/dL (0.15-1.2) 05/31/25 01:47 AST 13 U/L (0-32) 05/31/25 01:47 ALT 10 U/L (0-33) 05/31/25 01:47 Alkaline Phosphatase 101 U/L (35-105) 05/31/25 01:47 Troponin T Baseline < 6 ng/L (0-10) 05/31/25 01:47 NT-Pro-B Natriuret Pep 47 pg/mL (0-125) 05/31/25 01:47 Total Protein 7.4 g/dL (6.6-8.7) 05/31/25 01:47 Albumin 4.4 g/dL (3.5-5.2) 05/31/25 01:47 Globulin 3.0 g/dL (1.3-4.6) 05/31/25 01:47 Influenza A (PCR) Negative (Negative) 05/31/25 03:12 Influenza Type B (PCR) Negative (Negative) 05/31/25 03:12 RSV (PCR) Negative (Negative) 05/31/25 03:12 SARS-CoV-2 (PCR) Negative (Negative) 05/31/25 03:12 All radiology interpretation(s) finalized by discharge Discharge Plan Discharge Patient Disposition: Home Clinical Impression: Multifocal pneumonia Condition: Stable Prescriptions: New prednisone 10 mg tablet 10 mg PO DIRECTED Qty: 30 0RF Rx Instructions: 4 [id number], 3 VNndz4p, 6UMhsp4l, 1 IEytc1u. levofloxacin 750 mg tablet 750 mg PO DAILY 7 Days Qty: 7 0RF codeine-guaifenesin 10-100 mg/5 mL liquid 5 ml PO Q4H PRN (Reason: cough) Qty: 120 0RF Continued ipratropium-albuterol 0.5 mg-3 mg(2.5 mg base)/3 mL solution for nebulization 3 ml inhalation Q20M PRN (Reason: shortness of breath) Qty: 90 0RF Rx Instructions: for 3 doses No Action nicotine 14 mg/24 hr patch 24 hour 1 patch transdermal DAILY Qty: 28 1RF levocetirizine [Xyzal] 5 mg tablet 5 mg PO DAILY Qty: 90 1RF promethazine-DM 6.25-15 mg/5 mL syrup 5 ml PO Q6H Qty: 118 0RF albuterol sulfate [Ventolin HFA] 90 mcg/actuation HFA aerosol inhaler 2 inh inhalation Q4H PRN (Reason: shortness of breath or wheezing) Qty: 8.5 0RF budesonide-formoterol [Symbicort] 80-4.5 mcg/actuation HFA aerosol inhaler 2 puff inhalation BID Qty: 10.2 0RF meloxicam 15 mg tablet 15 mg PO DAILY Qty: 90 1RF escitalopram oxalate 20 mg tablet 20 mg PO DAILY Qty: 90 1RF (DME) TLSO Brace See Rx Instructions .Route .MEDSUPPLY Qty: 1 0RF Rx Instructions: As directed Code 99 (DME) tlso back brace See Rx Instructions .Route .MEDSUPPLY Qty: 1 0RF Rx Instructions: As directed. Order 99 days pantoprazole 40 mg tablet,delayed release (DR/EC) 40 mg PO BID 30 Days Qty: 60 5RF (DME) TLSO Brace See Rx Instructions .Route .MEDSUPPLY Qty: 1 0RF Rx Instructions: As directed enoxaparin [Lovenox] 100 mg/mL syringe 100 mg SUBCUT Q12H Qty: 180 3RF fluticasone propionate 50 mcg/actuation spray,suspension 2 spray intranasal BID Qty: 16 1RF Rx Instructions: administer into each nostril Discharge Orders: Discharge ED (Routine); Ordered 05/31/25 Ordered By: Devin Fowler Referrals: Ramos Cruz MD [Primary Care Provider, [facility]] - 1-3 days Patient Instructions: Pneumonia (ED), Opioid Safety, Pain Management, Patient Portal & Sharon Instructions Activity Restrictions/Additional Instructions: Medication including antibiotics and steroids as directed. He will be placed on a slow extended tapering dose of steroid at this time. Use your albuterol inhaler or DuoNeb nebulizer every 4 hours while awake for the next 48 hours whether you feel you needed or not, then as needed following that. Case management has been asked to make an appointment for you with pulmonology. Look for their call. Return for worsening symptoms despite treatment. Print Language: Greek Coding Level of Care Code ED Pipe Fitter for Renetta Burton
[2025-05-31 02:26] LABS: Hematocrit 35.3 % (36-47); Hemoglobin 11.80 g/dL (11.27-16.99); Mean Corpuscular HGB Conc 33.4 g/dL (30-55); Mean Corpuscular Hemoglobin 30.5 pg (27-33); Mean Corpuscular Volume 91.2 fl (85-98); Nucleated Red Blood Cells % 0 %; Platelet Count 341 10^3/cmm (157-399); Red Blood Count 3.87 10^6/uL (3.85-5.65); White Blood Count 10.80 10^3/uL (3.29-11.43)
[2025-05-31] MEDS: iohexol 350 mg/mL 500 mL Btl (per mL) IV (02:45)
[2025-05-31 02:51] LABS: Lactic Sepsis W/Reflex 2.9 mmol/L (0.5-2.2)
[2025-05-31 02:55] LABS: Troponin(5th) Baseline < 6 ng/L (0-10)
[2025-05-31] MEDS: methylPREDNISolone sod succ 125 mg/2 mL INJ IV (03:01)
[2025-05-31 03:04] LABS: Alanine Aminotransferase 10 U/L (0-33); Albumin Level 4.4 g/dL (3.5-5.2); Alkaline Phosphatase 101 U/L (35-105); Anion Gap 22.7 (5-19); Aspartate Amino Transferase 13 U/L (0-32); Blood Urea Nitrogen 4 mg/dL (6-20); Calcium 8.9 mg/dL (8.5-10.5); Carbon Dioxide 17 mmol/L (22-29); Chloride 97 mmol/L (98-107); Creatinine Clr Calc Pharmacy 120.2453; Globulin 3.0 g/dL (1.3-4.6); Glucose 102 mg/dL (65-115); Magnesium 1.7 mg/dL (1.7-2.3); NT Pro B Type Natriuretic Pept 47 pg/mL (0-125); Osmolality Calculated 273 mOsm/kg (285-295); Potassium 3.7 mmol/L (3.5-5.1); Sodium 133 mmol/L (136-145); Total Protein 7.4 g/dL (6.6-8.7)
[2025-05-31 03:06] LABS: Reflex Lactate Order REFLEX LACTIC ORDERD
[2025-05-31] MEDS: fentaNYL 50 mcg/mL INJ 2mL IVP (03:38)
[2025-05-31 04:01] LABS: Respiratory Syncytial Virus Ce NEGATIVE (Negative); SARS-CoV-2 PCR NEGATIVE (Negative)
== END 2025-05-31 04:35 | disposition home or self-care (01) ==
PROVIDERS: Emergency Provider Emergency Medicine; PCP Family Medicine
DX: J18.8 Other pneumonia, unspecified organism (principal); Z72.0 Tobacco use
CPT/HCPCS: 71275; 80053; 83605; 83735; 83880; 84484; 85025; 87637; 93005; 94640; 96374; 96375; 99285; J2919; J3010; J7030; J9999

== ENCOUNTER 2025-06-09 06:39 | Day surgery (SDC) | payer MEDICAID, SELFPAY ==
[2025-06-09 06:57] VITALS: BP 108/81; PULSE 106; RESP 18; TEMP 36.1; O2SAT 93; BMI 25.6
[2025-06-09 07:10] LABS: OR HCG Qualitative Urine Negative (Negative)
--- NOTE | 2025-06-09 08:27 | P.ANESASSM_ITS ---
Pre-Anesthetic Assessment Height/Weight: Height 5 ft 2 in Weight 140 lb Temp Pulse Resp BP Pulse Ox O2 Del Method 97.0 F L 106 H 18 108/81 93 Room Air 06/09/25 06:57 06/09/25 06:57 06/09/25 06:57 06/09/25 06:57 06/09/25 06:57 06/09/25 06:57 Preop Diagnosis: GERD Operation Date: 06/09/25 08:15 Proposed Procedures p EGD EGD with Biopsy 18584 K21.9(Not Applicable) - Khris Garcia MD Was Beta Trisha taken within 24 hours: N/A Was Clonidine taken within 24 hours: N/A Last intake: Intake Last Liquid Date 06/08/25 Last Liquid Time 22:00 Last Solid Date 06/08/25 Last Solid Time 13:00 Social No alcohol and No tobacco Exam alert, oriented x 3, clear to auscultation bilaterally and regular rate & rhythm Airway Submandibular: within normal limits Cervical ROM: within normal limits Mallampati: Class III Dentition: full Anesthetic Plan ASA status: 3 Anesthesia: MAC Other: No prior issues with anesthesia N.p.o. since yesterday evening Patient is recovering from pneumonia currently, has completed a full course of antibiotics plus is currently finishing another course. Denies any SOB or fevers Current smoker Lovenox last taken 06/07/2025 GERD, controlled with Protonix Plan for MAC anesthesia Medications/Allergies Home Medications ?Medication ?Instructions ?Recorded ?Confirmed ?Last Taken ?Type escitalopram oxalate 20 mg tablet 20 mg PO DAILY #90 t abs 11/24/24 06/09/25 06/08/25 Rx levocetirizine 5 mg tablet (Xyzal) 5 mg PO DAILY #90 t abs 12/18/24 06/09/25 06/08/25 Rx tlso back brace #1 ea 01/20/25 06/05/25 Unkn own Rx TLSO Brace #1 ea 01/29/25 06/05/25 Unkn own Rx TLSO Brace #1 ea 02/03/25 06/05/25 Unkn own Rx enoxaparin 100 mg/mL subcutaneous 100 mg SUBCUT Q12H # 180 mL 03/03/25 06/09/25 06/07/25 Rx syringe (Lovenox) fluticasone propionate 50 2 spray intranasal BID #16 g vania 04/14/25 06/09/25 06/08/25 Rx mcg/actuation nasal spray,suspension albuterol sulfate 90 mcg/actuation 2 inh inhalation Q4 H PRN shortness 05/04/25 06/09/25 06/09/25 Rx aerosol inhaler (Ventolin HFA) of breath or wheezing # 8.5 grams budesonide-formoterol HFA 80 2 puff inhalation BID #10 .2 grams 05/04/25 06/09/25 06/08/25 Rx mcg-4.5 mcg/actuation aerosol inhaler (Symbicort) pantoprazole 40 mg tablet,delayed 40 mg PO BID 30 days #60 tabs 05/08/25 06/09/25 06/08/25 Rx release codeine 10 mg-guaifenesin 100 mg/5 5 ml PO Q4H PRN cou gh #120 mL 05/31/25 06/09/25 06/08/25 Rx mL oral liquid benzonatate 200 mg capsule 200 mg PO BID PRN cough #20 caps 06/05/25 06/09/25 06/08/25 Rx furosemide 40 mg tablet (Lasix) 40 mg PO QAM #5 tabs 0 06/05/25 06/09/25 06/08/25 Rx ipratropium 0.5 mg-albuterol 3 mg 3 ml inhalation Q20M PRN shortness 06/08/25 06/09/25 06/09/25 Rx (2.5 mg base)/3 mL nebulization of breath #90 mL soln Allergies Allergy/AdvReac Type Severity Reaction Status Date / Time apixaban (From Eliquis) Allergy ALGY-Hives Verified 06/05/25 14:51 gabapentin Allergy ALGY-Hives Verified 06/05/25 14:51 morphine Allergy ALGY-Hives Verified 06/05/25 14:51 trazodone AdvReac Intermediate ADR-Halluci Verified 06/05/25 14:51 nating Current Medications Generic Name Dose Route Start Last Admin Trade Name Freq PRN Reason Stop Dose Admin Sodium Chloride 1,000 mls @ 15 mls/hr 06/09/25 06:54 06/09/25 07:21 Sodium Chloride 0.9% IV 06/10/25 06:53 15 mls/hr .Q24H PRN Administration COLONOSCOPY FLUIDS PFSH Anesthesia Medical History (Updated 06/08/25 @ 00:00 by REYNA Angel) Pneumonia Restless leg Moderate major depression 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 Local reaction to bee sting Allergic rhinitis due to allergen Asthma Tobacco dependency Cessation discussed DVT (deep venous thrombosis) Lovenox dose increased to discharge Factor 5 Leiden mutation, heterozygous Pulmonary emboli See above Surgical History H/O neck surgery (06/15/16) Cervical laminectomy/discectomy with anterior cervical fusion History of back surgery (11/26/17) L4/L5 hemilaminectomy with discectomy and foraminotomies History of cholecystectomy History of History of tubal ligation Family History Mother Cancer Cervical cancer Grandmother Cancer Maternal-bone Grandfather Cancer Maternal-lung Grandfather Cancer Paternal-lung Grandmother Cancer Paternal-lung Other Bleeding disorder Clotting disorder Lung disease Denies family history of Diabetes CAD (coronary artery disease) Dementia Hyperlipidemia Psychiatric illness Chronic kidney disease (CKD) Anesthesia complication Hypertension Stroke Social History Smoking and tobacco/nicotine status: current every day tobacco/nicotine user Alcohol intake: current Alcohol intake frequency: holidays/special occasions only Substance/Drug Use: never Lives independently: Yes Marital status: Single Number of children: 5 Current occupational status: unemployed Special sergio needs: No Agree to transfusion: Yes Data Anesthesia Cardiac Studies: Echocardiogram Ultrasound 10/16/19
--- NOTE | 2025-06-09 08:28 | W.PM.OPSFHP ---
Same Day Surgery H&P Indication for Procedure/HPI DATE OF PROCEDURE: June 09, 2025 CHIEF COMPLAINT/INDICATIONFOR SURGICAL PROCEDURE: heartburn, gerd PREOP DIAGNOSIS: heartburn, gerd PLANNED PROCEDURE: Operation Date: 06/09/25 08:15 Proposed Procedures p EGD EGD with Biopsy 39317 K21.9(Not Applicable) - Khris Garcia MD Medications/Allergies* Allergies/Adverse Reactions Allergy/AdvReac Type Severity Reaction Status Date / Time apixaban (From Eliquis) Allergy ALGY-Hives Verified 06/05/25 14:51 gabapentin Allergy ALGY-Hives Verified 06/05/25 14:51 morphine Allergy ALGY-Hives Verified 06/05/25 14:51 trazodone AdvReac Intermediate ADR-Halluci Verified 06/05/25 14:51 nating Current Medications: Generic Name Dose Route Start Last Admin Trade Name Freq PRN Reason Stop Dose Admin Sodium Chloride 1,000 mls @ 15 mls/hr 06/09/25 06:54 06/09/25 07:21 Sodium Chloride 0.9% IV 06/10/25 06:53 15 mls/hr .Q24H PRN Administration COLONOSCOPY FLUIDS Pertinent History/Comorbid Conditions* Medical History (Updated 06/08/25 @ 00:00 by REYNA Angel) Pneumonia Restless leg Moderate major depression 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 Local reaction to bee sting Allergic rhinitis due to allergen Asthma Tobacco dependency Cessation discussed DVT (deep venous thrombosis) Lovenox dose increased to discharge Factor 5 Leiden mutation, heterozygous Pulmonary emboli See above Surgical History (Updated 12/30/24 @ 13:24 by Felipe Up DO) H/O neck surgery (06/15/16) Cervical laminectomy/discectomy with anterior cervical fusion History of back surgery (11/26/17) L4/L5 hemilaminectomy with discectomy and foraminotomies History of cholecystectomy History of History of tubal ligation Family History (Updated 05/09/23 @ 10:09 by Iona Ruiz LPN) Clotting disorder Bleeding disorder Lung disease Cancer Mother Cervical cancer Grandmother Maternal-bone Grandfather Maternal-lung Grandfather Paternal-lung Grandmother Paternal-lung Denies family history of Diabetes CAD (coronary artery disease) Dementia Hyperlipidemia Psychiatric illness Chronic kidney disease (CKD) Anesthesia complication Hypertension Stroke Social History Smoking and tobacco/nicotine status: current every day tobacco/nicotine user Alcohol intake: current Alcohol intake frequency: holidays/special occasions only Substance/Drug Use: never Lives independently: Yes Marital status: Single Number of children: 5 Current occupational status: unemployed Special sergio needs: No Agree to transfusion: Yes Pertinent Exam Findings alert, oriented x 3, clear to auscultation bilaterally, regular rate & rhythm and procedure specific exam findings abdomen soft, nt, nd Recommendations Risks and benefits of procedure reviewed and Patient/family agree to proceed Surgery/Procedure today Coding Level of Care Code Acute Code for Chg Fwvaughn
[2025-06-09 08:48] VITALS: BP 108/73; PULSE 104; RESP 18; TEMP 36.1; O2SAT 94
[2025-06-09 09:04] VITALS: BP 115/76; PULSE 92; RESP 16; O2SAT 96
--- NOTE | 2025-06-09 09:20 | ANE.PACU2 ---
Inpatient post-anesthesia follow up: Airway intact: Yes Vital signs: Temperature 97 F Pulse Rate 92 Respiratory Rate 16 Blood Pressure 115/76 Pulse Oximetry 96 Oxygen Delivery Me thod Room Air Oxygen Flow Rate Fraction of Inspir ed Oxygen Hydration adequate: Yes Nausea and vomiting: No Pain level: 1 Mental status: Baseline
== END 2025-06-09 09:20 | disposition home or self-care (01) ==
PROVIDERS: Student in an Organized Health Care Education/Training Program; PCP Family Medicine; Visit Provider Student in an Organized Health Care Education/Training Program
PROC: 0DJ08ZZ Inspection of Upper Intestinal Tract, Via Natural or Artificial Opening Endoscopic (ICD-10-PCS; principal; 2025-06-09 08:15)
DX: K21.9 Gastro-esophageal reflux disease without esophagitis (principal); R12 Heartburn; K29.50 Unspecified chronic gastritis without bleeding; F17.200 Nicotine dependence, unspecified, uncomplicated; F32.9 Major depressive disorder, single episode, unspecified; J45.909 Unspecified asthma, uncomplicated
CPT/HCPCS: 43239; 81025; 88305; 88342; J2704; J7030

== ENCOUNTER 2025-07-28 11:47 | Oncology outpatient (recurring) (ONCR) | payer BC, MEDICAID, SELFPAY ==
[2025-07-28 12:42] LABS: Hematocrit 43.5 % (36-47); Hemoglobin 14.40 g/dL (11.27-16.99); Mean Corpuscular HGB Conc 33.1 g/dL (30-55); Mean Corpuscular Hemoglobin 31.0 pg (27-33); Mean Corpuscular Volume 93.5 fl (85-98); Nucleated Red Blood Cells % 0 %; Platelet Count 297 10^3/cmm (157-399); Red Blood Count 4.65 10^6/uL (3.85-5.65); White Blood Count 6.18 10^3/uL (3.29-11.43)
[2025-07-28 13:04] LABS: Alanine Aminotransferase 12 U/L (0-33); Albumin Level 4.8 g/dL (3.5-5.2); Alkaline Phosphatase 91 U/L (35-105); Anion Gap 17.1 (5-19); Aspartate Amino Transferase 17 U/L (0-32); Blood Urea Nitrogen 11 mg/dL (6-20); Calcium 9.7 mg/dL (8.5-10.5); Carbon Dioxide 23 mmol/L (22-29); Chloride 99 mmol/L (98-107); Creatinine Clr Calc Pharmacy 73.9006; Ferritin 47 ng/mL (15-150); Globulin 3.2 g/dL (1.3-4.6); Glucose 111 mg/dL (65-115); Iron 157 ug/dL (37-145); Osmolality Calculated 280 mOsm/kg (285-295); Potassium 4.1 mmol/L (3.5-5.1); Sodium 135 mmol/L (136-145); Total Iron Binding Capacity 372 mcg/dl; Total Protein 8.0 g/dL (6.6-8.7); Unsaturated Iron Binding 215 ug/dL (112-347)
[2025-07-28 13:18] LABS: Vitamin B12 310 pg/mL (232-1245)
== END 2025-07-31 23:59 | disposition home or self-care (01) ==
PROVIDERS: Internal Medicine Medical Oncology; PCP Family Medicine; Visit Provider Family Medicine
DX: D68.51 Activated protein C resistance (principal); E61.1 Iron deficiency
CPT/HCPCS: 36415; 80053; 82607; 82728; 82746; 83540; 83550; 85025

== ENCOUNTER 2025-09-30 07:49 | Outpatient (CLI) | payer BC, MEDICAID, SELFPAY ==
--- NOTE | 2025-09-30 07:58 | MM_ITS ---
WS: [id number] SCREENING DIGITAL BREAST TOMOSYNTHESIS MAMMOGRAM WITH CAD HISTORY: SCREENING COMPARISON: 09/22/2024, 09/05/2024 Bilateral CC and MLO with tomosynthesis and synthetic mammography submitted. Computer aided detection analyzed. Breast composition: The breasts are heterogeneously dense, which may obscure small masses. Focal slightly irregular mass in the lateral RIGHT breast measures 2.8 mm in diameter. This mass is not visualized on the lateral projection. Due to the irregular margins recommend additional imaging. Benign lymph node in the upper outer quadrant LEFT breast is stable. MM/MM scr BI tomosynthesis [id number] IMPRESSION: BI-RADS: 0 - Incomplete: Need additional imaging evaluation FOLLOW UP: Need Additional Imaging RIGHT breast: Spot compression views (CC ). True ML. Ultrasound to follow if ab normality persists.
== END 2025-09-30 07:50 | disposition home or self-care (01) ==
LOC: RAD 07:51
PROVIDERS: PCP Family Medicine; Visit Provider Family Medicine
DX: Z12.31 Encounter for screening mammogram for malignant neoplasm of breast (principal); R92.333 Mammographic heterogeneous density, bilateral breasts; D24.2 Benign neoplasm of left breast; N63.10 Unspecified lump in the right breast, unspecified quadrant
CPT/HCPCS: 77063; 77067